=== PATIENT | female | born 1950 | race Caucasian/White ===

== ENCOUNTER 2020-03-01 10:30 | Emergency (ER) | payer MEDICARE, MEDICAID, SELFPAY ==
[2020-03-01 10:51] VITALS: BP 141/73; PULSE 91; RESP 16; TEMP 36.8; O2SAT 95; BMI 19.2
--- NOTE | 2020-03-01 11:07 | W.ED.GENADLT ---
HPI - General Adult General: Chief complaint: General Medical Stated complaint: ABNORMAL LABS Time Seen by Provider: 03/01/20 10:56 History of Present Illness: HPI narrative: Patient is a 69-year-old female presenting today with a high INR per her doctor's office. She is on Coumadin for a mechanical heart valve. She takes 6 mg alternating daily with 7 mg. She took her normal 6 mg dose last night. Yesterday she had her INR checked at her doctor's office for the first time in 2 or 3 months. It is reported as higher than 8 and she was told to come to the ER for a vitamin K shot. She has noticed blood in her urine for the last 2 to 3 weeks. She is otherwise feeling okay but is very nervous about this INR. She recently had a severe episode of the flu and said she is just gotten over that in the past week or so. Her primary care physician is Dr. Dunbar. Onset (ago): unknown Associated symptoms: Reports other (Hematuria); Deny chest pain, dyspnea, headache(s), malaise, nausea, rash or vomiting Review of Systems General: Reports: 10 or more systems reviewed and unremarkable except in HPI and below Const: Reports: fatigue; Denies: fever(s), chills or malaise Eyes: Denies: change in vision ENMT: Denies: odynophagia Card: Denies: chest pain or swelling of feet/ankles Resp: Denies: dyspnea, productive cough or non-productive cough GI: Denies: abdominal pain, nausea or vomiting : Reports: hematuria; Denies: flank pain or difficulty voiding Musc: Denies: neck pain or back pain Skin/Breast: Denies: rash Neuro: Denies: headache(s), numbness in extremities or weakness in extremities Raghav/Lymph: Reports: easy bruising; Denies: easy bleeding PFSH ED PFSH: Social History Smoking and tobacco status: current every day smoker Physical Exam Const: COMMON NORMALS: no acute distress, patient oriented x3, no limitations and alert GENERAL APPEARANCE: cooperative and comfortable HENMT: HEAD & SCALP: normal to inspection FACE & SINUS: normal facial exam Eye: GENERAL EYE: appearance normal, both eyes and all related structures Neck/C-Spine: COMMON NORMALS: supple, no meningeal signs and no JVD Chest: COMMONS NORMALS: normal inspection of the chest Resp: COMMON NORMALS: normal respiratory effort, No use of accessory muscles and clear to auscultation bilaterally AUSCULTATION: clear to auscultation bilaterally Cardio: COMMON NORMALS: no JVD, regular rate, regular rhythm and No murmurs present (Cardio) RATE: regular rate RHYTHM: regular rhythm GI: COMMON NORMALS: Normal to inspection, nondistended, normoactive bowel sounds present, Soft to palpation and non-tender INSPECTION: Yes normal to inspection AUSCULTATION: Yes normoactive bowel sounds PALPATION: Yes Soft to palpation Back/Pelvis: COMMON NORMALS: thoracic and lumbar spine normal to inspection Extremity: COMMON NORMALS: normal to inspection Neuro: COMMON NORMALS: patient oriented x3, moves all extremities, no focal motor deficits and no sensory deficits noted SENSORIUM/ORIENTATION: Yes alert MENINGEAL SIGNS: Yes no meningeal signs Psych: COMMON NORMALS: mental status grossly normal, cooperative and normal affect ACTIVITY/MOTOR BEHAVIOR: Yes fidgeting and Yes restless MOOD & AFFECT: Yes anxious Skin: COMMON NORMALS: no rashes or lesions noted and turgor normal GENERAL SKIN EXAM: no rashes or lesions noted and turgor normal Course Reevaluation(s): Reevaluation #1: The INR here is 1.47. I asked the patient whether the test in the office was done with a fingerstick and she said no it was a regular blood draw and send out. Because it is unclear what exactly her INR is I am going to repeat the test on a new blood draw. Time: 12:36 Reevaluation #2: The second INR here in the department is 1.5. I gave her a dose of Lovenox that she has mechanical valve and we do not want her to be too low. She will take 7 mg daily of her warfarin and have her INR rechecked next week. Vital Signs: Vital signs: Vital Signs Temperature 98.2 F 03/01/20 10:51 Pulse Rate 87 03/01/20 14:15 Respiratory Rate 16 03/01/20 14:15 Blood Pressure 137/81 03/01/20 14:15 Pulse Oximetry 97 03/01/20 14:15 MDM - General Adult Lab Data: Labs: Lab Results 03/01/20 03/01/20 03/01/20 Range/Units 11:25 11:25 11:25 WBC 6.3 (4.0-10.0) 10^3/ uL RBC 4.63 (4.1-5.3) 10^6/u L Hgb 12.1 (11.5-15.3) g/dL Hct 39.0 (37.0-47.0) % MCV 84.2 (81-99) fL MCH 26.1 L (28.0-34.0) pg MCHC 31.0 (30.0-36.0) g/dL RDW 19.8 H (12.1-15.1) % Plt Count 161 (130-400) 10^3/c mm MPV 10.0 (7.4-10.4) fL Neut % (Auto) 61.9 % Lymph % (Auto) 26.2 % [place] % (Auto) 8.1 % Eos % (Auto) 2.7 % Baso % (Auto) 0.8 % Neut # (Auto) 3.9 (1.8-7.7) 10^3/u L Lymph # (Auto) 1.6 (0.8-4.8) 10^3/u L [place] # (Auto) 0.5 (0.2-0.9) 10^3/u L Eos # (Auto) 0.2 (0.0-0.8) 10^3/u L Baso # (Auto) 0.1 (0.0-0.1) 10^3/u L Nucleated RBC % (a uto) 0 % Nucleated RBCs # 0.0 /100WBC PT 18.40 H (10.5-13.3) SECO NDS INR 1.47 H (0.8-1.2) Sodium 139 (136-145) mmol/L Potassium 4.1 (3.5-5.1) mmol/L Chloride 100 (98-107) mmol/L Carbon Dioxide 26 (22-29) mmol/L Anion Gap 17.1 (5-19) BUN 12 (8-23) mg/dL Creatinine 0.8 (0.5-0.9) mg/dL GFR Calculation 71.3 L (90-130) mL/min Glucose 88 (65-115) mg/dL Calculated Osmolal ity 284 L (285-295) mOsm/k g Calcium 9.9 (8.5-10.5) mg/dL Total Bilirubin 0.4 (0.15-1.2) mg/dL AST 20 (0-32) U/L ALT 12 (0-33) U/L Alkaline Phosphata se 77 (35-105) IU/L Total Protein 7.2 (6.6-8.7) g/dL Albumin 4.4 (3.5-5.2) g/dL Globulin 2.8 (1.3-4.6) g/dL 03/01/20 Range/Units 13:11 WBC (4.0-10.0) 10^3/ uL RBC (4.1-5.3) 10^6/u L Hgb (11.5-15.3) g/dL Hct (37.0-47.0) % MCV (81-99) fL MCH (28.0-34.0) pg MCHC (30.0-36.0) g/dL RDW (12.1-15.1) % Plt Count (130-400) 10^3/c mm MPV (7.4-10.4) fL Neut % (Auto) % Lymph % (Auto) % [place] % (Auto) % Eos % (Auto) % Baso % (Auto) % Neut # (Auto) (1.8-7.7) 10^3/u L Lymph # (Auto) (0.8-4.8) 10^3/u L [place] # (Auto) (0.2-0.9) 10^3/u L Eos # (Auto) (0.0-0.8) 10^3/u L Baso # (Auto) (0.0-0.1) 10^3/u L Nucleated RBC % (a uto) % Nucleated RBCs # /100WBC PT 19.00 H (10.5-13.3) SECO NDS INR 1.54 H (0.8-1.2) Sodium (136-145) mmol/L Potassium (3.5-5.1) mmol/L Chloride (98-107) mmol/L Carbon Dioxide (22-29) mmol/L Anion Gap (5-19) BUN (8-23) mg/dL Creatinine (0.5-0.9) mg/dL GFR Calculation (90-130) mL/min Glucose (65-115) mg/dL Calculated Osmolal ity (285-295) mOsm/k g Calcium (8.5-10.5) mg/dL Total Bilirubin (0.15-1.2) mg/dL AST (0-32) U/L ALT (0-33) U/L Alkaline Phosphata se (35-105) IU/L Total Protein (6.6-8.7) g/dL Albumin (3.5-5.2) g/dL Globulin (1.3-4.6) g/dL Discharge Plan Discharge Patient Disposition: Home, Self-Care Clinical Impression: Abnormal laboratory test result Condition: Stable Prescriptions: No Action furosemide 40 mg tablet 40 mg PO DAILY 90 Days Qty: 90 RF: 3 warfarin 6 mg tablet RF: 0 Discharge Orders: Discharge Order (Routine); Ordered 03/01/20 Ordered By: Mariza Garcia Referrals: Savannah Parrish, ASSISTANT TO THE [employer] [Primary Care Provider] - Discharge Diet: Usual diet Discharge Activity: Resume usual activity Patient Instructions: Warfarin (By mouth) Activity Restrictions/Additional Instructions: Take 7 mg of Warfarin daily until you see your PCP to have the INR rechecked in about a week. 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
[2020-03-01 11:52] LABS: INR 1.47 (0.8-1.2)
[2020-03-01 12:02] LABS: Alanine Aminotransferase 12 U/L (0-33); Albumin Level 4.4 g/dL (3.5-5.2); Alkaline Phosphatase 77 IU/L (35-105); Anion Gap 17.1 (5-19); Aspartate Amino Transferase 20 U/L (0-32); Blood Urea Nitrogen 12 mg/dL (8-23); Calcium 9.9 mg/dL (8.5-10.5); Carbon Dioxide 26 mmol/L (22-29); Chloride 100 mmol/L (98-107); Globulin 2.8 g/dL (1.3-4.6); Glomerular Filtration Rate 71.3 mL/min (90-130); Glucose 88 mg/dL (65-115); Osmolality Calculated 284 mOsm/kg (285-295); Potassium 4.1 mmol/L (3.5-5.1); Sodium 139 mmol/L (136-145); Total Bilirubin 0.4 mg/dL (0.15-1.2); Total Protein 7.2 g/dL (6.6-8.7)
[2020-03-01 12:17] LABS: Basophils # 0.1 10^3/uL (0.0-0.1); Basophils % 0.8 %; Eosinophils # 0.2 10^3/uL (0.0-0.8); Eosinophils % 2.7 %; Hemoglobin 12.1 g/dL (11.5-15.3); Lymphocytes # 1.6 10^3/uL (0.8-4.8); Lymphocytes % 26.2 %; Mean Corpuscular Hemoglobin 26.1 pg (28.0-34.0); Mean Corpuscular Volume 84.2 fL (81-99); Monocytes # 0.5 10^3/uL (0.2-0.9); Monocytes % 8.1 %; Neutrophils # 3.9 10^3/uL (1.8-7.7); Neutrophils % 61.9 %; Nucleated Red Blood Cells % 0 %; Platelet Count 161 10^3/cmm (130-400); Red Blood Count 4.63 10^6/uL (4.1-5.3); Red Cell Distribution Width 19.8 % (12.1-15.1); White Blood Count 6.3 10^3/uL (4.0-10.0)
[2020-03-01 13:34] LABS: INR 1.54 (0.8-1.2)
[2020-03-01 14:15] VITALS: BP 137/81; PULSE 87; RESP 16; O2SAT 97
[2020-03-01] MEDS: enoxaparin 60 mg/0.6 mL Syringe 50 MG SUBCUT (14:18)
== END 2020-03-01 14:28 | disposition home or self-care (01) ==
PROVIDERS: Emergency Provider Emergency Medicine; Family Provider Nurse Practitioner Family; PCP Nurse Practitioner Family
DX: R79.9 Abnormal finding of blood chemistry, unspecified (principal); F17.210 Nicotine dependence, cigarettes, uncomplicated; Z79.01 Long term (current) use of anticoagulants
CPT/HCPCS: 12345; 80053; 85025; 85610; 96372; 99282; 99283; J1650

== ENCOUNTER 2020-12-07 08:41 | Emergency (ER) | payer MEDICARE, MEDICAID, SELFPAY ==
[2020-12-07 08:43] VITALS: BP 139/65; PULSE 98; RESP 18; O2SAT 98; BMI 24.2
--- NOTE | 2020-12-07 09:01 | ED_ITS ---
HPI - Abdominal Pain General: Chief Complaint: Abdominal Pain Stated Complaint: ABD PAIN Time Seen by Provider: 12/07/20 08:49 History of Present Illness: HPI narrative: 70-year-old female with a history of mitral valvuloplasty with revision in the past. She comes in today complaining of epigastric pain she has had nausea and vomiting the last several weeks. Belching makes it better eating makes it worse she had several episodes of throwing up. She has a lot of regurgitation and heartburn symptoms. She has tried Tylenol and ibuprofen. She is not been taking anything for her stomach. She is on Coumadin for her prosthetic mitral valve. MD elicited complaint: abdominal pain Onset (ago): week(s) Pain Consistency: constant Location: Epigastric Severity: mild Quality: cramping Radiation: none Exacerbating factors: eating and vomiting Associated Symptoms: Reports GI cramping, nausea, poor appetite and vomiting; Denies anorexia, belching, bloating, change in bowel habits, change in stool character, chills, coffee ground emesis, constipation, diarrhea, dyspepsia, dysuria, excessive flatus, fever(s), heartburn, hematochezia, hematuria, hematemesis, fecal incontinence, loose stools, melena and syncope Review of Systems Const: Denies: fever(s) or chills ENMT: Denies: throat pain, ear or mastoid pain, nasal discharge or nasal congestion Card: Denies: syncope Resp: Denies: dyspnea, productive cough or non-productive cough GI: Reports: nausea, vomiting and GI cramping; Denies: hematemesis, coffee ground emesis, heartburn, diarrhea, constipation, bloating, belching, excessive flatus, fecal incontinence, change in bowel habits, change in stool character, hematochezia or melena : Denies: dysuria or hematuria Skin/Breast: Denies: rash or pruritus PFSH ED PFSH: Social History Smoking and tobacco status: current every day smoker Physical Exam Const: COMMON NORMALS: no acute distress GENERAL APPEARANCE: cooperative and comfortable ORIENTATION/CONSCIOUSNESS: Yes awake, Yes oriented to person, Yes oriented to place and Yes oriented to time HENMT: COMMON NORMALS: normocephalic, atraumatic and hearing grossly normal bilaterally HEAD & SCALP: normocephalic and atraumatic Neck/C-Spine: COMMON NORMALS: no JVD Resp: COMMON NORMALS: normal respiratory effort, No retractions, No use of accessory muscles and clear to auscultation bilaterally AUSCULTATION: clear to auscultation bilaterally Cardio: COMMON NORMALS: no JVD, regular rate, regular rhythm and No murmurs present (Cardio) RATE: regular rate RHYTHM: regular rhythm GI: COMMON NORMALS: Soft to palpation and No hepatosplenomegaly present AUSCULTATION: Yes normoactive bowel sounds PALPATION: Yes Soft to palpation, No Tenderness to palpation present (GI), No Guarding due to palpation present (GI) and Yes No hepatosplenomegaly present Extremity: COMMON NORMALS: normal to inspection, capillary refill normal, no clubbing, cyanosis or edema, no calf tenderness and no pedal edema Neuro: SENSORIUM/ORIENTATION: Yes oriented to person, Yes oriented to place and Yes oriented to time Skin: COMMON NORMALS: no rashes or lesions noted GENERAL SKIN EXAM: no rashes or lesions noted Course Vital Signs: Vital signs: Vital Signs Pulse Rate 96 12/07/20 11:06 Respiratory Rate 21 H 12/07/20 11:06 Blood Pressure 122/92 12/07/20 11:06 Pulse Oximetry 98 12/07/20 11:06 MDM - Abdominal Pain MDM Narrative: Medical decision making narrative: Reviewed laboratory findings with the patient. She is feeling better will go ahead and discharge her home started on pantoprazole follow-up with her primary care doctor if she has any worsening or changes symptoms return to the emergency room immediately. If she has any vomiting of blood return to the emergency room. Lab Data: Labs: Lab Results 12/07/20 12/07/20 12/07/20 Range/Units 08:50 08:50 08:50 WBC 8.2 (4.0-10.0) 10^3/ uL RBC 4.20 (4.1-5.3) 10^6/u L Hgb 12.3 (11.5-15.3) g/dL Hct 38.1 (37.0-47.0) % MCV 90.7 (81-99) fL MCH 29.3 (28.0-34.0) pg MCHC 32.3 (30.0-36.0) g/dL RDW 14.6 (12.1-15.1) % Plt Count 183 (130-400) 10^3/c mm MPV 9.9 (7.4-10.4) fL Neut % (Auto) 68.5 % Lymph % (Auto) 19.1 % [place] % (Auto) 10.0 % Eos % (Auto) 1.3 % Baso % (Auto) 0.9 % Neut # (Auto) 5.64 (1.8-7.7) 10^3/u L Lymph # (Auto) 1.6 (0.8-4.8) 10^3/u L [place] # (Auto) 0.8 (0.2-0.9) 10^3/u L Eos # (Auto) 0.1 (0.0-0.8) 10^3/u L Baso # (Auto) 0.1 (0.0-0.1) 10^3/u L Nucleated RBC % (a uto) 0 % Nucleated RBCs # 0.0 /100WBC PT 35.50 H (12.1-14.9) SECO NDS INR 3.38 H (0.8-1.2) Sodium 131 L (136-145) mmol/L Potassium 3.9 (3.5-5.1) mmol/L Chloride 93 L (98-107) mmol/L Carbon Dioxide 27 (22-29) mmol/L Anion Gap 14.9 (5-19) BUN 8 (8-23) mg/dL Creatinine 0.7 (0.5-0.9) mg/dL GFR Calculation 83.0 L (90-130) mL/min Glucose 98 (65-115) mg/dL Calculated Osmolal ity 270 L (285-295) mOsm/k g Calcium 9.3 (8.5-10.5) mg/dL Total Bilirubin 0.6 (0.15-1.2) mg/dL AST 63 H (0-32) U/L ALT 52 H (0-33) U/L Alkaline Phosphata se 212 H (35-105) IU/L Troponin T Gen 5 n g/L (0-10) ng/L Total Protein 6.6 (6.6-8.7) g/dL Albumin 3.9 (3.5-5.2) g/dL Globulin 2.7 (1.3-4.6) g/dL Lipase 24 (13-60) U/L Urine Color (Yellow) Urine Appearance (CLEAR) Urine pH (5-7) Ur Specific Gravit y (1.005-1.030) Urine Protein (Negative) Urine Glucose (UA) (Normal) Urine Ketones (Negative) Urine Blood (Negative) Urine Nitrate (Negative) Urine Bilirubin (Negative) Prot Sulfosalicyli c Acd (Negative) Urine Urobilinogen (Negative) mg/dL Ur Leukocyte Octavia ase (Negative) Urine RBC (0-2) /hpf Urine WBC (0-5) /hpf Ur Squamous Epith Cells (0-5) /hpf Amorphous Sediment Urine Bacteria (NONE) /hpf 12/07/20 12/07/20 Range/Units 08:50 09:10 WBC (4.0-10.0) 10^3/ uL RBC (4.1-5.3) 10^6/u L Hgb (11.5-15.3) g/dL Hct (37.0-47.0) % MCV (81-99) fL MCH (28.0-34.0) pg MCHC (30.0-36.0) g/dL RDW (12.1-15.1) % Plt Count (130-400) 10^3/c mm MPV (7.4-10.4) fL Neut % (Auto) % Lymph % (Auto) % [place] % (Auto) % Eos % (Auto) % Baso % (Auto) % Neut # (Auto) (1.8-7.7) 10^3/u L Lymph # (Auto) (0.8-4.8) 10^3/u L [place] # (Auto) (0.2-0.9) 10^3/u L Eos # (Auto) (0.0-0.8) 10^3/u L Baso # (Auto) (0.0-0.1) 10^3/u L Nucleated RBC % (a uto) % Nucleated RBCs # /100WBC PT (12.1-14.9) SECO NDS INR (0.8-1.2) Sodium (136-145) mmol/L Potassium (3.5-5.1) mmol/L Chloride (98-107) mmol/L Carbon Dioxide (22-29) mmol/L Anion Gap (5-19) BUN (8-23) mg/dL Creatinine (0.5-0.9) mg/dL GFR Calculation (90-130) mL/min Glucose (65-115) mg/dL Calculated Osmolal ity (285-295) mOsm/k g Calcium (8.5-10.5) mg/dL Total Bilirubin (0.15-1.2) mg/dL AST (0-32) U/L ALT (0-33) U/L Alkaline Phosphata se (35-105) IU/L Troponin T Gen 5 n g/L 15 H (0-10) ng/L Total Protein (6.6-8.7) g/dL Albumin (3.5-5.2) g/dL Globulin (1.3-4.6) g/dL Lipase (13-60) U/L Urine Color Yellow (Yellow) Urine Appearance Clear (CLEAR) Urine pH 8 H (5-7) Ur Specific Gravit y 1.010 (1.005-1.030) Urine Protein Neg (Negative) Urine Glucose (UA) Norm (Normal) Urine Ketones Negative (Negative) Urine Blood 2+ H (Negative) Urine Nitrate Negative (Negative) Urine Bilirubin Neg (Negative) Prot Sulfosalicyli c Acd Negative (Negative) Urine Urobilinogen 1 H (Negative) mg/dL Ur Leukocyte Octavia ase 2+ H (Negative) Urine RBC 0-4 H (0-2) /hpf Urine WBC 0-4 H (0-5) /hpf Ur Squamous Epith Cells 0-4 H (0-5) /hpf Amorphous Sediment Not Reportable Urine Bacteria Trace (NONE) /hpf Discharge Plan Discharge Patient Disposition: Home Clinical Impression: Chest pain due to GERD Condition: Stable Prescriptions: New pantoprazole 40 mg tablet,delayed release (DR/EC) 40 mg PO DAILY Qty: 30 RF: 0 No Action furosemide 40 mg tablet 40 mg PO DAILY 90 Days Qty: 90 RF: 3 warfarin 6 mg tablet RF: 0 Discharge Orders: Discharge ED (Routine); Ordered 12/07/20 Ordered By: Barrington Taylor Referrals: Jonathan Dunbar MD [Primary Care Provider] - Discharge Diet: As Directed Discharge Activity: Resume usual activity Patient Instructions: Diet for Ulcers and Gastritis (ED), Opioid Safety Activity Restrictions/Additional Instructions: Up with your primary care doctor within the next week return if you have further problems. 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
--- NOTE | 2020-12-07 09:03 | ECG_ITS ---
[facility] Test Date: 2020-12-07 Pat Name: Jacinda Cisneros Department: Room: Gender: Female Recruitment And Outreach Assistant: : 1950 Requested By: Barrington Angel Order Number: [id number] Karan MD: Rogelio Carrero M.D. Measurements Intervals Superior Rate: 96 P: 94 MI: 159 QRS: 34 QRSD: 93 T: 77 QT: 368 QTc: 466 Interpretive Statements SINUS RHYTHM INCOMPLETE RIGHT BUNDLE BRANCH BLOCK [90+ ms QRS DURATION, TERMINAL R IN V1/V2, 40+ ms S IN I/aVL/V4/V5/V6] No previous ECG available for comparison Electronically Signed On 12-09-2020 18:55:56 FORMING TUBE SELECTOR by Rogelio Carrero M.D. [id number] f
[2020-12-07 09:05] VITALS: PULSE 67
[2020-12-07 09:05] LABS: Basophils # 0.1 10^3/uL (0.0-0.1); Basophils % 0.9 %; Eosinophils # 0.1 10^3/uL (0.0-0.8); Eosinophils % 1.3 %; Hematocrit 38.1 % (37.0-47.0); Hemoglobin 12.3 g/dL (11.5-15.3); Lymphocytes # 1.6 10^3/uL (0.8-4.8); Lymphocytes % 19.1 %; Mean Corpuscular HGB Conc 32.3 g/dL (30.0-36.0); Mean Corpuscular Hemoglobin 29.3 pg (28.0-34.0); Mean Corpuscular Volume 90.7 fL (81-99); Mean Platelet Volume 9.9 fL (7.4-10.4); Monocytes # 0.8 10^3/uL (0.2-0.9); Neutrophils # 5.64 10^3/uL (1.8-7.7); Neutrophils % 68.5 %; Nucleated Red Blood Cells % 0 %; Platelet Count 183 10^3/cmm (130-400); Red Cell Distribution Width 14.6 % (12.1-15.1); White Blood Count 8.2 10^3/uL (4.0-10.0)
[2020-12-07 09:06] VITALS: O2SAT 98
[2020-12-07 09:15] LABS: INR 3.38 (0.8-1.2)
[2020-12-07 09:21] LABS: Alanine Aminotransferase 52 U/L (0-33); Albumin Level 3.9 g/dL (3.5-5.2); Alkaline Phosphatase 212 IU/L (35-105); Anion Gap 14.9 (5-19); Aspartate Amino Transferase 63 U/L (0-32); Blood Urea Nitrogen 8 mg/dL (8-23); Calcium 9.3 mg/dL (8.5-10.5); Carbon Dioxide 27 mmol/L (22-29); Chloride 93 mmol/L (98-107); Globulin 2.7 g/dL (1.3-4.6); Glucose 98 mg/dL (65-115); Lipase 24 U/L (13-60); Osmolality Calculated 270 mOsm/kg (285-295); Potassium 3.9 mmol/L (3.5-5.1); Sodium 131 mmol/L (136-145); Total Bilirubin 0.6 mg/dL (0.15-1.2); Total Protein 6.6 g/dL (6.6-8.7)
[2020-12-07] MEDS: sodium chloride 0.9% 1,000 ML 999 ML IV (09:23)
[2020-12-07] MEDS: lidocaine 2% viscous 15 ML, aluminum-mag hydrox-simethicon 30 ML, sucralfate oral liq 1 GM PO (09:23)
[2020-12-07 09:51] LABS: Urine Appearance Clear (CLEAR); Urine Color Yellow (Yellow); pH Urine 8 (5-7)
[2020-12-07 09:52] LABS: Add Urine Culture? Yes; Add Urine Microscopic? YES; Bacteria Urine TRACE /hpf; Bilirubin Urine Neg (Negative); Blood Urine 2+ (Negative); Glucose Urine UA Norm (Normal); Ketones Urine Negative (Negative); Leukocyte Esterase Urine 2+ (Negative); Nitrate Urine Negative (Negative); Protein Urine Neg (Negative); RBC Urine 0-4 /hpf (0-2); Squamous Epithelial Cell Urine 0-4 /hpf (0-5); Sulfosalicylic Acid Urine Negative (Negative); Urobilinogen Urine 1 mg/dL (Negative); WBC Urine 0-4 /hpf (0-5)
[2020-12-07 10:04] LABS: Troponin T (5th) Once 15 ng/L (0-10)
[2020-12-07 10:05] VITALS: BP 122/92; PULSE 96; RESP 21; O2SAT 98
[2020-12-07 11:06] VITALS: BP 122/92; PULSE 96; RESP 21; O2SAT 98
== END 2020-12-07 11:07 | disposition home or self-care (01) ==
PROVIDERS: Emergency Provider Family Medicine; PCP Family Medicine
DX: K21.9 Gastro-esophageal reflux disease without esophagitis (principal); Z79.01 Long term (current) use of anticoagulants; F17.210 Nicotine dependence, cigarettes, uncomplicated
CPT/HCPCS: 80053; 81001; 83690; 84484; 85025; 85610; 87086; 93005; 96360; 99284; J7030

== ENCOUNTER 2021-01-01 13:58 | Outpatient (CLI) | payer MEDICARE, MEDICAID, SELFPAY ==
--- NOTE | 2021-01-01 14:06 | CT_ITS ---
WS: [id number] CT ABDOMEN CONTRAST TECHNIQUE: Contrast enhanced CT of the abdomen with coronal and sagittal reformatted images. CLINICAL INFORMATION: EPIGASTRIC PAIN COMPARISON: Ultrasound 3 27,018 DLP: 663.[address] scans at [facility] use at least one of these dose optimization techniques: automat ed exposure control; mA and/or kV adjustment per patient size (includes targeted exams where dose is matched to clinical indication); or iterative reconstruction. FINDINGS: Hepatomegaly. Innumerable low-attenuation metastatic lesions throughout both hepatic lobes. Conglomer ate metastatic involvement involving the undersurface of the right hepatic lobe and caudate lobe at t he gloria hepatis. Narrowing of the hepatic veins. Mass effect on the intrahepatic IVC with narrowing which remains patent. Splenic vein is patent. Compression with near occlusion of the right portal vei n. Gallbladder is contracted. Lung bases are well aerated. Splenomegaly. Normal GE junction. Adrenal gla nds are normal. Normal renal parenchymal enhancement. No hydronephrosis. A few simple renal cysts. Ao rtic calcification. Normal caliber abdominal aorta. Ectatic lower thoracic aorta and aortogram at the diaphragmatic hiatus measuring 3.1 x 3.4 cm AP by transverse. Celiac and SMA are patent. Normal pancreatic parenchymal enhancement. Mild prominence of the common b ile duct which appears to taper distally. Common bile duct at the pancreatic head measures 7 mm. Evid ence of portal hypertension with splenic varices. Upper abdominal varices. No visualized abdominal ly mphadenopathy. Lumbar scoliosis convex left. Disc space narrowing worse at L2-L3 L3-L4 L4-L5 and L5-S1. Slight grade 1 anterolisthesis L4 on L5. CT/CT abdomen w con* [id number] IMPRESSION: 1. Hepatomegaly with diffuse metastatic disease throughout both hepatic lobes. 2. Compression with near occlusion of the right portal vein. Hepatic veins are patent. 3. Splenomegaly with splenic varices. Varices in the upper abdomen consistent with portal hypertension. 4. Mild prominence of the common bile duct measuring 7 mm which appears to tap er distally. Pancreas appears normal. 5. No hydronephrosis in either kidney. Small bilateral renal cysts. 6. Slightly ectatic distal thoracic aorta measuring 3.1 x 3.4 CM. Normal calib er abdominal aorta. Attempted notification Jonathan Dunbar MD at 01/01/2021 3:33 PM. Unable to reach Dr. Dunbar's clinic at this time
[2021-01-01] MEDS: iohexol 300 mg/mL 50 mL Btl PO (14:07)
[2021-01-01] MEDS: iodixanol 320 mg/mL 100mL Btl IV (14:54)
== END 2021-01-01 13:59 | disposition home or self-care (01) ==
LOC: RADWPI 14:03
PROVIDERS: PCP Family Medicine; Visit Provider Family Medicine
DX: R10.13 Epigastric pain (principal); C78.7 Secondary malignant neoplasm of liver and intrahepatic bile duct; R16.2 Hepatomegaly with splenomegaly, not elsewhere classified; I77.810 Thoracic aortic ectasia; Q61.02 Congenital multiple renal cysts
CPT/HCPCS: 74160; Q9967

== ENCOUNTER 2021-01-10 14:38 | Outpatient (CLI) | payer MEDICARE, MEDICAID, SELFPAY ==
[2021-01-10 16:05] LABS: INR 9.73 (0.8-1.2)
== END 2021-01-10 14:39 | disposition home or self-care (01) ==
LOC: LAB 14:47
PROVIDERS: PCP Family Medicine; Visit Provider Family Medicine
DX: R79.1 Abnormal coagulation profile (principal)
CPT/HCPCS: 36415; 85610

== ENCOUNTER 2021-01-16 12:21 | Outpatient (CLI) | payer MEDICARE, MEDICAID, SELFPAY ==
[2021-01-16 12:47] LABS: INR 1.65 (0.8-1.2)
== END 2021-01-16 12:22 | disposition home or self-care (01) ==
PROVIDERS: PCP Family Medicine
DX: C22.9 Malignant neoplasm of liver, not specified as primary or secondary (principal); Z95.2 Presence of prosthetic heart valve
CPT/HCPCS: 85610

== ENCOUNTER 2021-01-21 08:48 | Outpatient (CLI) | payer MEDICARE, MEDICAID, SELFPAY ==
[2021-01-17 14:43] VITALS: BMI 18.6
--- NOTE | 2021-01-21 09:28 | US_ITS ---
WS: [id number] ULTRASOUND-GUIDED LIVER BIOPSY HISTORY: Liver lesions Procedure, risks, and complications have been explained to the patient. Consent is obtained. Consciou s sedation protocol was followed. Prior imaging studies are reviewed. Skin is cleansed with ChloraPrep and then anesthetized with 1% buffered lidocaine. Core biopsy is per formed with an 18 gauge Achieve needle. Specimen is placed within formalin. No complications encounte red. US/US biopsy liver [id number] IMPRESSION: Uncomplicated liver biopsy. Multiple biopsies performed of abnormal areas in e liver. Pathology results pending.
[2021-01-21 09:45] VITALS: BP 146/81; PULSE 95; RESP 18; TEMP 36.7; O2SAT 99
[2021-01-21] MEDS: sodium chloride 0.9% 1,000 ML 30 ML IV (09:53)
[2021-01-21 11:00] VITALS: BP 141/83; PULSE 94; RESP 18; O2SAT 100
[2021-01-21 11:12] VITALS: BP 120/80; PULSE 93; RESP 18; O2SAT 100
[2021-01-21 11:20] VITALS: BP 163/92; PULSE 95; RESP 16; O2SAT 95
[2021-01-21] MEDS: midazolam 1 mg/mL INJ 2 mL 2 MG IVP (11:34)
[2021-01-21 11:35] VITALS: RESP 18; O2SAT 100
[2021-01-21] MEDS: fentaNYL 50 mcg/mL INJ 2mL IVP (11:35)
[2021-01-21 12:08] VITALS: BP 169/80; PULSE 96; RESP 24; O2SAT 95
--- NOTE | 2021-01-21 12:37 | PC.NURSE ---
Pt c/o pain in lower back that has became worst over last several weeks,. Called Dr Lima to update her on the patient. Site look great with no signs of bleeding or swelling. Slight elevation in BP r/t pain. Dr Lima reviewed prior scans and determined patient has some issues with back. Advised patient to follow-up with PCP about pain. Obtained telephone order for [place] 5-325 x 1 to be given after tolerating lunch. Visitor at bedside.
[2021-01-21] MEDS: HYDROcodone-acetaminophen 5-325 mg Tablet 1 TAB PO (12:44)
== END 2021-01-21 13:21 | disposition home or self-care (01) ==
LOC: CCL 08:53 → GILAB 08:55
PROVIDERS: Radiology Diagnostic Radiology; PCP Family Medicine; Visit Provider Nurse Practitioner Family
DX: K76.9 Liver disease, unspecified (principal)
CPT/HCPCS: 36415; 47000; 76942; 85610; 88307; 96360; 96361; 96374; 96375; J2250; J3010; J7030

== ENCOUNTER 2021-01-28 18:16 | Outpatient (CLI) | payer MEDICARE, MEDICAID, SELFPAY ==
[2021-01-28 19:34] LABS: INR 1.18 (0.8-1.2)
== END 2021-01-28 18:17 | disposition home or self-care (01) ==
PROVIDERS: PCP Family Medicine; Visit Provider Family Medicine
DX: Z79.01 Long term (current) use of anticoagulants (principal)
CPT/HCPCS: 85610

== ENCOUNTER 2021-02-03 12:48 | Outpatient (CLI) | payer MEDICARE, MEDICAID, SELFPAY ==
--- NOTE | 2021-02-03 16:45 | ONC CON_ITS ---
Dr. Avery New Patient Note Patient: Jacinda Cisneros Unit #: [id number]: [id number] Dicatated By: Mckay Avery M.D.Date of Visit: Feb 03, 2021 Onc MED New Patient/Consult Referring Physician: Savannah Parrish N.P. History of Present Illness: Ms. Jacinda Cisneros, is a 70-year-old female with history of progressive abdominal fullness and pain and acid reflux since September 2020, as per patient initially she was evaluated by [facility] physician and she was given treatment for acid reflux, felt little better but then continued to have abdominal fullness especially in the right upper quadrant and progressive epigastric/right upper quadrant pain, early fullness and acid reflux and eventually had PMD.CT scan of abdomen on January 01, 2021 which showed hepatomegaly with diffuse metastatic disease throughout both hepatic lobes, compression with near occlusion of right portal vein, hepatic veins are patent. Splenomegaly with splenic varices, varices in the upper abdomen consistent with portal hypertension. Mild prominence of common bile duct measuring 7 mm. Pancreas appears normal. On January 21, 2021 she underwent ultrasound-guided liver biopsy which confirmed metastatic adenocarcinoma, CK7 positive/CK20 negative, as per pathology differential includes cholangiocarcinoma, upper GI gastric and esophageal carcinoma, thyroid or endometrium. As ER/MN receptor are negative and GCDFP also negative, likelihood of COACH WIRER or breast related malignancy being primary was less likely and Napsin and TTF-1 was also negative which will make lung as primary less likely. So upper GI lesion including bile duct and pancreas are high on differential as primary., On February 01, [address] PET scan which showed left upper lobe, hypermetabolic lesion measuring 2 x 2.7 cm SUV of 7 which could be primary lung carcinoma or metastatic disease and at anterior pleura of left upper lobe, a metastatic implant is FDG positive. A 1.6 cm prevascular lymph node in the mediastinum has SUV of 7.2 indicating malignancy and there are innumerable sites of hepatic metastatic disease throughout the liver parenchyma. Many lesions are confluent with each other and have SUV up to 12.4. As per patient she had lost about 10 to 15 pounds since September due to early fullness and persistent abdominal pain and she take tramadol but without much help patient denies any history of melena or hematochezia denies any hemoptysis or hematemesis, denies any jaundice but complaining of headaches and off-and-on blurred vision and double vision but no focal weakness. Patient has longstanding history of smoking still smoke about a pack a day, denies alcohol use Patient has history of mitral valve replacement at age 33, since then she is on Coumadin. Patient has history of colonoscopy done many years ago by Dr. Mcneil, at that time she was told it was unremarkable but never had EGD done before. Past Medical History: Ms. Goins medical history consists of anxiety, bipolar disorder, chronic obstructive pulmonary disease, depression, emphysema, gastroesophageal reflux disease, history of ce fever in childhood, hypercholesterolemia, lumbar sponylarthritis, lung nodule, and restless leg syndrome. Past Surgical History: Ms. Goins surgical/procedural history consists of covid vaccine #1 in 2020, mitral valve replacement in 1992, and tubal ligation in 1974. Medications: Alendronate Sodium 1 Tablet (of 70 mg) Oral q 7 days, clonazePAM 1 Tablet (of 0.5 mg) Oral daily, Colace 1 Caplet (of 100 mg) Capsule Oral daily, Ferrous Sulfate 1 Tablet (of 325 (65 fe) mg) Oral q 48 hours, Furosemide 1 Tablet (of 20 mg) Oral daily, Gabapentin 1 Caplet (of 300 mg) Capsule Oral t.i.d., Mirtazapine 1 Tablet (of 15 mg) Oral daily, Nitrostat Tablet, sublingual Sublingual PRN, Oxybutynin Chloride ER 1 Caplet (of 10 mg) Tablet SR 24 HR Oral daily, Pantoprazole Sodium 1 Tablet (of 40 mg) Tablet, enteric coated Oral daily, Promethazine HCl 1 Tablet (of 50 mg) Oral q 12 hours PRN, Requip 1 Tablet (of 0.5 mg) Oral daily, traMADol HCl 1 Tablet (of 50 mg) Oral b.i.d. PRN, Valsartan 1 Tablet (of 320 mg) Oral daily, Venlafaxine HCl ER 2 Caplet (of 150 mg) Capsule SR 24 HR Oral daily, Ventolin HFA 2 Puff(s) (of 108 (90 base) mcg/act) Aerosol, solution Inhalation t.i.d. & at bedtime, Verapamil HCl ER 1 Capsule (of 360 mg) Capsule SR 24 HR Oral daily, Warfarin Sodium (6 mg) Tablet Oral Take as Directed Allergies: Aspirin, TEGretol, and Wasp Venom. Social History: Ms. Cisneros is . She is a daily smoker who smokes 1.0 pack/day. Family History: Ms. Cisneros has 1 family member who is : child age 1o drowning. CHILDREN--AGE 2 FROM LEUKEMIA AND AGE 10 FROM DROWNING. Review Of Symptoms: Review of Systems is not available for this patient. Vital Signs: Performed on Feb 03, 2021 13:34: 8, 9, 0.00, 0.00 sq.m, 99 %, 130 /min (HIGH), 18 /min, 129/82 mm(hg), 99.7 F (HIGH), and 112.6 lbs (HIGH). Performance Status: 2 - Ambulatory/capable of all self-care, unable to perform any work activities. Up and about more than 50% of waking hours. (ECOG) Physical Examination: ENMT - No mouth sores, no thrush, no jaundice, Respiratory - Poor air entry otherwise clear, Cardiovascular - Regular rate and rhythm of heart, Abdomen - Soft, bowel sounds present, distended with organomegaly, Ecchymosis due to Lovenox injections, Extremities - No visible edema. Lab/Imaging: Most recent lab results are not available for this patient. Impression: Metastatic adenocarcinoma to the liver per ultrasound-guided liver biopsy done on January 21, 2021 immunohistochemistry positive for CK7, CEA, CK Erickson and negative for CDX2, CK20, Napsin, TTF-1, ER/MN, GCDFP,, as per pathology and upper GI lesion including bile duct or pancreas are high on the differential as the primary. CT PET scan done on February 01, 2021 showed left upper lobe malignant nodule size 2 x 2.7 cm with SUV of 7, malignant left pleural implant with mediastinal node consistent with metastatic disease. Extensive hepatic metastatic disease. Epigastric/right upper quadrant pain probably due to extensive liver mets. Longstanding history of smoking History of mitral valve replacement at age 33, since then she is on Coumadin Plan: Discussed with patient regarding her liver biopsy report as well as CT PET scan findings, as per immunohistochemistry, patient has metastatic adenocarcinoma to the liver and upper GI/bile duct as well as pancreas are high on the differential and her CT PET scan showed left upper lobe lung mass, primary versus metastatic At this point, will consider EGD and colonoscopy, will refer her to Dr. Mcneil for the procedure. Also refer her to pulmonology for bronchoscopy to obtain biopsy of left upper lobe to confirm primary versus metastatic disease and also consider PD-L1 status and guardant 360 and also request cancer type ID. We will also obtain tumor markers like CA 19???9, CEA and CA-125. As patient is complaining of headache off and on blurred vision, will consider MRI scan of the brain to rule out brain mets. As far as right upper quadrant pain/epigastric pain is concerned most likely due to extensive liver mets, will give her prescription for extended release morphine 15 mg every 12 hours and Percocet 5/325 1 to 2 tablet 4 to 6-hour for breakthrough, patient was advised to take small meals but more often to maintain nutrition as well as hydration Patient was also advised, she has stage IV metastatic adenocarcinoma of unknown primary, her prognosis is guarded. She was also advised to quit smoking and was offered any assistance she may need She will return to clinic in 2 weeks with CBC CMP and above-mentioned work-up Signed By: Mckay Avery M.D. <<Signature on File>>
[2021-02-10 10:37] LABS: PD-L1 (Clone 22C3) by IHC BBPL See Report
== END 2021-02-03 12:49 | disposition home or self-care (01) ==
LOC: ONCMED 12:53
PROVIDERS: PCP Family Medicine; Visit Provider Internal Medicine Hematology & Oncology
DX: C25.0 Malignant neoplasm of head of pancreas (principal); C78.7 Secondary malignant neoplasm of liver and intrahepatic bile duct; Z79.899 Other long term (current) drug therapy; Z87.891 Personal history of nicotine dependence; Z95.5 Presence of coronary angioplasty implant and graft
CPT/HCPCS: 88342; 99204

== ENCOUNTER 2021-02-04 08:53 | Outpatient (CLI) | payer MEDICARE, MEDICAID, SELFPAY | END 2021-02-04 08:54 | disposition home or self-care (01) | LOC: ONCMED 08:56 | PROVIDERS: PCP Family Medicine; Visit Provider Internal Medicine Hematology & Oncology | DX: C78.7 Secondary malignant neoplasm of liver and intrahepatic bile duct (principal) | CPT/HCPCS: 36415 ==

== ENCOUNTER 2021-02-17 16:35 | Inpatient (IN) | payer MEDICARE, MEDICAID, SELFPAY ==
[2021-02-17 17:09] VITALS: BP 137/71; PULSE 94; RESP 16; TEMP 36.5; O2SAT 99; BMI 19.5
--- NOTE | 2021-02-17 17:24 | XRR_ITS ---
PROCEDURE INFORMATION: Exam: XR Chest Exam date and time: 02/17/2021 5:53 PM Age: 70 years old Clinical indication: Left-sided chest pain; Prior surgery; Surgery date: 6+ months; Additional info: Reduced breath sounds TECHNIQUE: Imaging protocol: XR of the chest. Views: 1 view. Total images: 1 COMPARISON: CT chest wo con [id number] 01/24/2019 8:53 AM FINDINGS: Lungs: COPD/chronic bronchitis. No visible active interstitial or alveolar airspace disease. Pleural spaces: No pleural effusion. No pneumothorax. Heart/Mediastinum: Cardiac structures and configuration with cardiac size upper limits of normal. Arteriosclerosis. Status post sternotomy chest. Mildly tortuous thoracic aorta which can be seen in hypertensive cardiovascular disease. Bones/joints: Unremarkable for age. XR/XR chest 1V portable [id number] IMPRESSION: Nonacute.
--- NOTE | 2021-02-17 18:56 | W.ED.GENADLT ---
HPI - General Adult General: Chief complaint: General Medical Stated complaint: raquel sent her to be admitted Time Seen by Provider: 02/17/21 18:35 Source: patient Mode of arrival: ambulatory Limitations: no limitations History of Present Illness: HPI narrative: 70-year-old female who has a history of liver cancer. She was seen by her oncologist today was sent to the ER for admission for paracentesis and to have a port placed. She is not on chemoradiation currently but she states that he is wanting to start it. She has had diffuse abdominal pain and swelling of her abdomen. She does have ascites. She denies any fevers. She has some mild shortness of breath. Denies any worsening improving factors. Associated symptoms: Deny chest pain, dyspnea, headache(s) or rash Review of Systems Const: Denies: fever(s), chills, body aches or change in appetite Eyes: Denies: blurry vision or eye discomfort ENMT: Denies: throat pain or dental pain Card: Denies: chest pain Resp: Denies: dyspnea GI: Reports: abdominal pain : Denies: dysuria Musc: Denies: neck pain or back pain Skin/Breast: Denies: rash Neuro: Denies: headache(s) Psych: Denies: depression Raghav/Lymph: Denies: easy bruising All/Imm: Denies: urticaria PFSH ED PFSH: Medical History COPD (chronic obstructive pulmonary disease) GERD (gastroesophageal reflux disease) Liver cancer Lung nodule Mitral valve disorder Osteoporosis Pulmonary embolism Surgical History H/O tubal ligation Mitral valve replaced Social History Smoking and tobacco status: current every day smoker cigarettes Packs smoked per day: 1 Years cigarettes smoked: 58 Quit status (tobacco): considering quitting Second hand smoke exposure: Yes Smoking risk assessment/counseling performed?: Yes Alcohol intake: never Desire information about alcohol rehabilitation?: No Counseling given: No Substance/Drug Use: never Desire information about substance/drug rehabilitation?: No Counseling given: No Lives independently: Yes Household members: none Marital status: Current occupational status: disabled History of recent travel: No Current gender identity: Female Physical Exam Const: COMMON NORMALS: no acute distress, patient oriented x3 and healthy appearing HENMT: COMMON NORMALS: normocephalic and atraumatic HEAD & SCALP: normocephalic and atraumatic Eye: COMMON NORMALS: Equal, round and reactive pupils present and EOMs intact bilaterally PUPIL: Yes Equal, round and reactive pupils present Neck/C-Spine: COMMON NORMALS: full ROM and supple Chest: COMMONS NORMALS: normal inspection of the chest and normal palpation of entire chest wall Resp: COMMON NORMALS: normal respiratory effort, No retractions, No use of accessory muscles and clear to auscultation bilaterally AUSCULTATION: clear to auscultation bilaterally Cardio: COMMON NORMALS: regular rate, regular rhythm and No murmurs present (Cardio) RATE: regular rate RHYTHM: regular rhythm GI: COMMON NORMALS: no masses OTHER: distended with diffuse tenderness Extremity: COMMON NORMALS: normal to inspection and full ROM Neuro: COMMON NORMALS: patient oriented x3, moves all extremities and no focal motor deficits Psych: COMMON NORMALS: mental status grossly normal, Normal thought process present and cooperative THOUGHT PROCESS: Normal thought process present Skin: COMMON NORMALS: no rashes or lesions noted and no wounds GENERAL SKIN EXAM: no rashes or lesions noted Course Vital Signs: Vital signs: Vital Signs Temperature 98.1 F 02/17/21 19:22 Pulse Rate 98 02/17/21 19:22 Respiratory Rate 18 02/17/21 19:27 Blood Pressure 133/78 02/17/21 19:22 Pulse Oximetry 96 02/17/21 19:22 MDM - General Adult MDM Narrative: Medical decision making narrative: Patient presents here with ascites. Patient was sent here by her oncologist to be admitted for paracentesis. I spoke to hospitalist will admit. Patient also needs a port placed. Patient is well-appearing here. She has no dyspnea here. She is stable while in the ER and will admit. Lab Data: Labs: Lab Results 02/17/21 02/17/21 02/17/21 Range/Units 18:48 18:54 18:54 WBC 8.2 (4.0-10.0) 10^3/ uL RBC 3.88 L (4.1-5.3) 10^6/u L Hgb 11.6 (11.5-15.3) g/dL Hct 36.4 L (37.0-47.0) % MCV 93.8 (81-99) fL MCH 29.9 (28.0-34.0) pg MCHC 31.9 (30.0-36.0) g/dL RDW 18.0 H (12.1-15.1) % Plt Count 169 (130-400) 10^3/c mm MPV 9.9 (7.4-10.4) fL Neut % (Auto) 72.5 % Lymph % (Auto) 13.5 % Ada % (Auto) 12.7 % Eos % (Auto) 0.4 % Baso % (Auto) 0.7 % Neut # (Auto) 5.97 (1.8-7.7) 10^3/u L Lymph # (Auto) 1.1 (0.8-4.8) 10^3/u L Ada # (Auto) 1.1 H (0.2-0.9) 10^3/u L Eos # (Auto) 0.0 (0.0-0.8) 10^3/u L Baso # (Auto) 0.1 (0.0-0.1) 10^3/u L Nucleated RBC % (a uto) 0 % Nucleated RBCs # 0.0 /100WBC PT (12.1-14.9) SECO NDS Sodium 134 L (136-145) mmol/L Potassium 3.5 (3.5-5.1) mmol/L Chloride 93 L (98-107) mmol/L Carbon Dioxide 27 (22-29) mmol/L Anion Gap 17.5 (5-19) BUN 11 (8-23) mg/dL Creatinine 0.5 (0.5-0.9) mg/dL GFR Calculation 122.3 (90-130) mL/min Glucose 96 (65-115) mg/dL Calculated Osmolal ity 277 L (285-295) mOsm/k g Calcium 8.1 L (8.5-10.5) mg/dL Total Bilirubin 1.1 (0.15-1.2) mg/dL AST 85 H (0-32) U/L ALT 41 H (0-33) U/L Alkaline Phosphata se 406 H (35-105) IU/L Total Protein 6.1 L (6.6-8.7) g/dL Albumin 3.1 L (3.5-5.2) g/dL Globulin 3.0 (1.3-4.6) g/dL Lipase 54 (13-60) U/L Urine Color Yellow (Yellow) Urine Appearance Clear (CLEAR) Urine pH 5 (5-7) Ur Specific Gravit y 1.010 (1.005-1.030) Urine Protein Neg (Negative) Urine Glucose (UA) Norm (Normal) Urine Ketones Negative (Negative) Urine Blood Neg (Negative) Urine Nitrate Negative (Negative) Urine Bilirubin 1+ H (Negative) Urine Urobilinogen 1 H (Negative) mg/dL Ur Leukocyte Octavia ase Negative (Negative) 02/17/21 Range/Units 19:18 WBC (4.0-10.0) 10^3/ uL RBC (4.1-5.3) 10^6/u L Hgb (11.5-15.3) g/dL Hct (37.0-47.0) % MCV (81-99) fL MCH (28.0-34.0) pg MCHC (30.0-36.0) g/dL RDW (12.1-15.1) % Plt Count (130-400) 10^3/c mm MPV (7.4-10.4) fL Neut % (Auto) % Lymph % (Auto) % Ada % (Auto) % Eos % (Auto) % Baso % (Auto) % Neut # (Auto) (1.8-7.7) 10^3/u L Lymph # (Auto) (0.8-4.8) 10^3/u L Ada # (Auto) (0.2-0.9) 10^3/u L Eos # (Auto) (0.0-0.8) 10^3/u L Baso # (Auto) (0.0-0.1) 10^3/u L Nucleated RBC % (a uto) % Nucleated RBCs # /100WBC PT 49.40 H (12.1-14.9) SECO NDS Sodium (136-145) mmol/L Potassium (3.5-5.1) mmol/L Chloride (98-107) mmol/L Carbon Dioxide (22-29) mmol/L Anion Gap (5-19) BUN (8-23) mg/dL Creatinine (0.5-0.9) mg/dL GFR Calculation (90-130) mL/min Glucose (65-115) mg/dL Calculated Osmolal ity (285-295) mOsm/k g Calcium (8.5-10.5) mg/dL Total Bilirubin (0.15-1.2) mg/dL AST (0-32) U/L ALT (0-33) U/L Alkaline Phosphata se (35-105) IU/L Total Protein (6.6-8.7) g/dL Albumin (3.5-5.2) g/dL Globulin (1.3-4.6) g/dL Lipase (13-60) U/L Urine Color (Yellow) Urine Appearance (CLEAR) Urine pH (5-7) Ur Specific Gravit y (1.005-1.030) Urine Protein (Negative) Urine Glucose (UA) (Normal) Urine Ketones (Negative) Urine Blood (Negative) Urine Nitrate (Negative) Urine Bilirubin (Negative) Urine Urobilinogen (Negative) mg/dL Ur Leukocyte Octavia ase (Negative) Discharge Plan Discharge Patient Disposition: Admitted As Inpatient Admit Provider: Gabriel Choudhary Clinical Impression: Cancer of liver Qualifiers: Liver malignancy type: unspecified liver malignancy Qualified Code(s): C22.9 - Malignant neoplasm of liver, not specified as primary or secondary Abdominal ascites Qualifiers: Ascites type: malignant Qualified Code(s): R18.0 - Malignant ascites Condition: Stable Coding Level of Care Code ED Enrollment Coordinator for [facility] Fwd Exam Comprehensive
[2021-02-17 19:14] LABS: Basophils # 0.1 10^3/uL (0.0-0.1); Basophils % 0.7 %; Eosinophils % 0.4 %; Hematocrit 36.4 % (37.0-47.0); Hemoglobin 11.6 g/dL (11.5-15.3); Lymphocytes # 1.1 10^3/uL (0.8-4.8); Lymphocytes % 13.5 %; Mean Corpuscular HGB Conc 31.9 g/dL (30.0-36.0); Mean Corpuscular Hemoglobin 29.9 pg (28.0-34.0); Mean Corpuscular Volume 93.8 fL (81-99); Mean Platelet Volume 9.9 fL (7.4-10.4); Monocytes # 1.1 10^3/uL (0.2-0.9); Monocytes % 12.7 %; Neutrophils # 5.97 10^3/uL (1.8-7.7); Neutrophils % 72.5 %; Nucleated Red Blood Cells % 0 %; Platelet Count 169 10^3/cmm (130-400); Red Blood Count 3.88 10^6/uL (4.1-5.3); White Blood Count 8.2 10^3/uL (4.0-10.0)
[2021-02-17 19:22] VITALS: BP 133/78; PULSE 98; RESP 18; TEMP 36.7; O2SAT 96
[2021-02-17 19:27] VITALS: RESP 18
[2021-02-17] MEDS: HYDROmorphone 1 mg/mL INJ 1 mL IVP (19:27)
[2021-02-17] MEDS: ondansetron 2 mg/ML SDV 2 mL 4 MG IVP (19:27)
[2021-02-17 19:29] LABS: Add Urine Microscopic? NO; Charge for UA Resulting for Rev
[2021-02-17 19:30] LABS: Alanine Aminotransferase 41 U/L (0-33); Albumin Level 3.1 g/dL (3.5-5.2); Alkaline Phosphatase 406 IU/L (35-105); Anion Gap 17.5 (5-19); Aspartate Amino Transferase 85 U/L (0-32); Blood Urea Nitrogen 11 mg/dL (8-23); Calcium 8.1 mg/dL (8.5-10.5); Carbon Dioxide 27 mmol/L (22-29); Chloride 93 mmol/L (98-107); Glomerular Filtration Rate 122.3 mL/min (90-130); Glucose 96 mg/dL (65-115); Lipase 54 U/L (13-60); Osmolality Calculated 277 mOsm/kg (285-295); Potassium 3.5 mmol/L (3.5-5.1); Sodium 134 mmol/L (136-145); Total Bilirubin 1.1 mg/dL (0.15-1.2); Total Protein 6.1 g/dL (6.6-8.7)
[2021-02-17 19:31] LABS: Urine Color Yellow (Yellow)
[2021-02-17 19:32] LABS: Bilirubin Urine 1+ (Negative); Blood Urine Neg (Negative); Glucose Urine UA Norm (Normal); Ketones Urine Negative (Negative); Leukocyte Esterase Urine Negative (Negative); Nitrate Urine Negative (Negative); Protein Urine Neg (Negative); Urine Appearance Clear (CLEAR); Urobilinogen Urine 1 mg/dL (Negative); pH Urine 5 (5-7)
--- NOTE | 2021-02-17 19:51 | PM.HP ---
Providers/Chief Complaint Primary Care Provider: Jonathan Dunbar MD Chief Complaint: Port Drainage History of Present Illness Jacinda Cisneros is a 70 year old female who follows up with Dr. 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 Avery's clinic because of progressive abdominal fullness and lower extremity edema. Patient is stating that she has been feeling a lot of pressure in her stomach, she is endorsing early satiety, abdominal cramps & has not been able to eat much in last few days, she is denying fever, vomiting or abdominal pain. Because abdominal distention she is also struggling to take deep breaths as well, no chest pain or severe shortness of breath. Dr. Avery sent her to the hospital for therapeutic paracentesis and placement of Port-A-Cath, Dr. Tran has been notified, for her supratherapeutic INR 10 mg of vitamin K administered, she will be kept n.p.o. Coumadin on hold, she takes Coumadin for mechanical mitral valve, smokes half a pack a day, requesting nicotine patch Review of Systems Const: Reports: body aches and fatigue; Denies: fever(s) Eyes: Denies: change in vision ENMT: Denies: throat pain Card: Denies: chest pain Resp: Reports: dyspnea GI: Reports: abdominal pain, nausea, early satiety, bloating and GI cramping; Denies: vomiting, diarrhea or constipation : Denies: flank pain Musc: Reports: muscle cramps Skin/Breast: Denies: rash Neuro: Denies: headache(s) Psych: Reports: anxiety Endo: Denies: polyuria Raghav/Lymph: Denies: easy bruising All/Imm: Denies: urticaria Medications/Allergies Home Medications Medication Instructions Recorded Confirmed Last Taken Type albuterol sulfate [Ventolin HFA] 1 puff INHALATION DAILY PRN 01/17/21 02/17/21 01/20/21 History alendronate [Fosamax] 70 mg PO DAILY@0900 01/17/21 02/17/21 02/17/21 History budesonide-formoterol [Symbicort] 1 puff INHALATION DAILY 01/17/21 02/17/21 02/17/21 History gabapentin 300 mg PO TID@01/17/21 02/17/21 02/17/21 History ropinirole 0.5 mg PO DAILY@2100 01/17/21 02/17/21 02/16/21 History venlafaxine 150 mg PO DAILY@89901/17/21 02/17/21 02/17/21 History verapamil 360 mg PO DAILY 01/17/21 02/17/21 02/17/21 History clonazepam 0.5 mg tablet 0.5 mg PO DAILY@89902/17/21 02/17/21 02/17/21 History ferrous sulfate 325 mg (65 mg 325 mg PO Q2D tab 02/17/21 02/17/21 02/17/21 History iron) tablet furosemide 40 mg PO DAILY@89902/17/21 02/17/21 02/17/21 History lorazepam 1 mg PO TID@02/17/21 02/17/21 02/17/21 History mirtazapine 15 mg tablet 15 mg PO DAILY 02/17/21 02/17/21 Unknown History morphine 15 mg PO BID 02/17/21 02/17/21 02/17/21 History nitroglycerin 0.4 mg sublingual 0.4 mg SUBLINGUAL Q5M PRN 02/17/21 02/17/21 Unknown History tablet oxybutynin chloride 10 mg 10 mg PO DAILY@89902/17/21 02/17/21 02/17/21 History tablet,extended release 24 hr oxycodone-acetaminophen 1 tab PO QID PRN 02/17/21 02/17/21 02/17/21 History pantoprazole 40 mg PO DAILY@89902/17/21 02/17/21 02/17/21 History potassium chloride 10 meq PO DAILY@89902/17/21 02/17/21 02/17/21 History promethazine 50 mg tablet 50 mg PO Q12H tab 02/17/21 02/17/21 Unknown History warfarin 5 mg PO DAILY@2100 02/17/21 02/17/21 02/16/21 History Allergies Allergy/AdvReac Type Severity Reaction Status Date / Time aspirin Allergy Intermediate Unknown Verified 02/17/21 09:37 carbamazepine [From Tegretol] Allergy Intermediate Unknown Verified 02/17/21 09:38 venom-wasp Allergy Intermediate Unknown Verified 02/17/21 09:38 PFSH Acute PFSH: Medical History COPD (chronic obstructive pulmonary disease) GERD (gastroesophageal reflux disease) Liver cancer Lung nodule Mitral valve disorder Osteoporosis Pulmonary embolism Surgical History (Updated 02/17/21 @ 23:00 by Gabriel Chouhdary MD) H/O mitral valve replacement Takes Coumadin H/O tubal ligation Social History Smoking and tobacco status: current every day smoker cigarettes Packs smoked per day: 1 Years cigarettes smoked: 58 Quit status (tobacco): considering quitting Second hand smoke exposure: Yes Smoking risk assessment/counseling performed?: Yes Alcohol intake: never Desire information about alcohol rehabilitation?: No Counseling given: No Substance/Drug Use: never Desire information about substance/drug rehabilitation?: No Counseling given: No Lives independently: Yes Household members: none Marital status: Current occupational status: disabled History of recent travel: No Current gender identity: Female Vitals/I&O/Wt Last Vital Signs Temp 98.1 F 02/17/21 19:22 Pulse 98 02/17/21 19:22 Resp 18 02/17/21 19:27 BP 133/78 02/17/21 19:22 Pulse Ox 96 02/17/21 19:22 Weight last 48 hrs Weight 54.885 kg Physical Exam Narrative: EXAM NARRATIVE: Middle-age female, was sitting at the bedside when I entered the room, awake alert oriented x3 GCS 15 No neurological deficits S1, S2, loud S1, no active murmur appreciated Distended abdomen with hepatosplenomegaly, ascites, no signs of rigidity or peritonitis, no signs of caput medusae No signs of hepatic encephalopathy no asterixis Bilateral breath sounds without any adventitious rhonchi or crackles No joint swelling Lower extremity 2+ pitting edema with mild hyperemia Awake alert oriented x3 appropriate mood and affect Data : 02/17/21 18:54 02/17/21 18:54 A&P Assessment and plan (1) Abdominal ascites: Status: Acute Qualifiers: Ascites type: malignant Qualified Code(s): R18.0 - Malignant ascites (2) Cancer of liver: Status: Acute Qualifiers: Liver malignancy type: unspecified liver malignancy Qualified Code(s): C22.9 - Malignant neoplasm of liver, not specified as primary or secondary (3) Pulmonary nodule: Status: Acute (4) Metastatic malignant neoplasm of unknown primary site: Status: Acute Additional A&P Information Symptomatic progressive abdominal ascites Abdominal distention is causing symptoms of shortness of breath Hepatic lesions identified likely secondary to metastatic cancer however primary cancer is still unknown, consideration being given to ovarian versus omental Will request therapeutic paracentesis in the morning with cytology For now I will keep her on Lasix spironolactone and start lactulose No active signs of hepatic encephalopathy No evidence of abdominal pain no signs of sepsis We will keep her on ceftriaxone 2 g daily as prophylactic measures Active smoker with pulmonary nodule Pulmonary/mediastinal lymphadenopathy seems metastatic in nature currently smoking half a pack a day Requesting nicotine Follows up with Dr. Avery Will need Port-A-Cath placement in the morning, Supratherapeutic INR Takes Coumadin for mechanical mitral valve Coumadin on hold, vitamin K 10 mg IV given, recheck INR in the morning, she will require Port-A-Cath placement by Dr. Tran who has been notified and consulted Restless leg syndrome continue iron and Requip N.p.o. after midnight DVT prophylaxis SCDs avoid anticoagulation in anticipation of procedure, she is supratherapeutic at this point Full code Attestations Medical Necessity Statement*: Anticipating stay in the hospital cross more than 2 midnights for management of abdominal ascites and requiring Port-A-Cath placement Time Spent in Patient Care: (>than 50% of time spent in counselling and/or direct pt care on unit). 30mins Coding Level of Care Code Acute Architectural Draftsman for [facility] Fwd Diagnoses Abdominal ascites R18.0 Ascites type: malignant Cancer of liver C22.9 Liver malignancy type: unspecified liver malignancy Pulmonary nodule R91.1 Metastatic malignant neoplasm of unknown primary site C79.9; C80.1
[2021-02-17 20:22] VITALS: BP 134/76; PULSE 96; RESP 18; TEMP 36.7; O2SAT 94
[2021-02-17 20:31] LABS: INR 5.33 (0.8-1.2)
--- NOTE | 2021-02-17 20:34 | PC.NURSE ---
Report given to Blanche on . Blanche states that the nurse who will be taking the pt is not yet here.
[2021-02-17 20:52] VITALS: BP 129/65; PULSE 101; RESP 17; TEMP 37; O2SAT 92
[2021-02-17] MEDS: phytonadione (ADULT) 10 MG in sodium chloride 0.9% 50 ML 153 MG IV (21:55)
[2021-02-17] MEDS: nicotine 14 mg Patch 1 PATCH TRANSDERMA (22:40)
[2021-02-17] MEDS: ropinirole 0.25 mg Tablet 0.5 MG PO (22:41)
[2021-02-17 23:40] LABS: Ammonia 33 umol/L (11-51)
[2021-02-18] VITALS (14 sets, daily range): BP systolic 101–141; BP diastolic 49–77; PULSE 83–101; RESP 12–20; TEMP 36.2–37.5; O2SAT 87–98
--- NOTE | 2021-02-18 | SCC_ITS ---
Procedure Done: 1. Placement of PowerPort in the right internal jugular vein 2. Fluoroscopic guidance and interpretation for placement of catheter 3. Ultrasound guidance to access the right internal jugular vein 18.1 seconds of fluoroscopic guidance, for a cumulative dose of 2.70 mGy, was provided to Dr. Tran by the radiology department. C-arm images of the chest were saved for the patient's permanent record. [facility] SYSTEM[facility]
[2021-02-18] MEDS: cefTRIAXone 2,000 MG in sodium chloride 0.9% (plus) 50 ML 100 MG IV (00:33)
[2021-02-18] MEDS: HYDROmorphone 1 mg/mL INJ 1 mL 0.4 MG IVP ×3 (01:31→20:16)
[2021-02-18 06:18] LABS: Basophils # 0.1 10^3/uL (0.0-0.1); Basophils % 0.8 %; Eosinophils # 0.2 10^3/uL (0.0-0.8); Eosinophils % 2.4 %; Hematocrit 33.1 % (37.0-47.0); Hemoglobin 10.3 g/dL (11.5-15.3); Lymphocytes # 1.1 10^3/uL (0.8-4.8); Lymphocytes % 15.1 %; Mean Corpuscular HGB Conc 31.1 g/dL (30.0-36.0); Mean Corpuscular Hemoglobin 29.3 pg (28.0-34.0); Mean Corpuscular Volume 94.3 fL (81-99); Mean Platelet Volume 10.1 fL (7.4-10.4); Monocytes # 1.1 10^3/uL (0.2-0.9); Monocytes % 14.8 %; Neutrophils % 66.3 %; Nucleated Red Blood Cells % 0 %; Platelet Count 156 10^3/cmm (130-400); Red Blood Count 3.51 10^6/uL (4.1-5.3); Red Cell Distribution Width 17.8 % (12.1-15.1); White Blood Count 7.1 10^3/uL (4.0-10.0)
[2021-02-18 06:33] LABS: INR 1.46 (0.8-1.2)
[2021-02-18 06:46] LABS: Alanine Aminotransferase 32 U/L (0-33); Albumin Level 2.8 g/dL (3.5-5.2); Alkaline Phosphatase 353 IU/L (35-105); Anion Gap 12.6 (5-19); Aspartate Amino Transferase 66 U/L (0-32); Blood Urea Nitrogen 10 mg/dL (8-23); Carbon Dioxide 28 mmol/L (22-29); Chloride 96 mmol/L (98-107); Globulin 2.6 g/dL (1.3-4.6); Glomerular Filtration Rate 158.3 mL/min (90-130); Glucose 71 mg/dL (65-115); Osmolality Calculated 274 mOsm/kg (285-295); Potassium 3.6 mmol/L (3.5-5.1); Sodium 133 mmol/L (136-145); Total Bilirubin 1.4 mg/dL (0.15-1.2); Total Protein 5.4 g/dL (6.6-8.7)
[2021-02-18] MEDS: verapamil ER 180 mg Tablet 360 MG PO (08:47)
[2021-02-18] MEDS: FUROsemide 20 mg Tablet PO (08:47)
[2021-02-18] MEDS: spironolactone 25 mg Tablet 12.5 MG PO (08:47)
[2021-02-18] MEDS: pantoprazole DR 40 mg Tablet PO (08:47)
[2021-02-18] MEDS: gabapentin 300 mg Capsule PO ×2 (08:47→20:27)
[2021-02-18] MEDS: LORazepam 1 mg Tablet PO ×2 (08:47→20:27)
[2021-02-18] MEDS: ferrous sulfate EC 325 mg Tablet PO (08:48)
[2021-02-18] MEDS: nicotine 14 mg Patch 1 PATCH TRANSDERMA (08:48)
[2021-02-18] MEDS: ondansetron 2 mg/ML SDV 2 mL 4 MG IVP (10:05)
--- NOTE | 2021-02-18 10:26 | P.CONIM_ITS ---
Providers/Reason For Consult Consulting Physican/Specialty*: General Surgery Dr. Tran Reason for Consult*: Port-A-Cath placement Attending Physician: Horacio Acosta MD Primary Care Provider: Jonathan Dunbar MD History of Present Illness History of Present Illness Jacinda Cisneros is a 70 year old female who was recently diagnosed with liver metastasis likely secondary to a peripancreatic biliary source. Patient has had mitral valve replacement and is on Coumadin. She was admitted to the hospital yesterday for abdominal distention and ultrasound did not show any significant ascites. Patient needs a Port-A-Cath to start chemotherapy. Denies any strip clavicle fractures. Review of Systems General: Reports: 10 or more systems reviewed and unremarkable except in HPI a nd below Meds/Allergies Home Medications and Allergies Home Medications Medication Instructions Recorded Confirmed Last Taken Type albuterol sulfate [Ventolin HFA] 1 puff INHALATION DAILY PRN 01/17/21 02/17/21 01/20/21 History alendronate [Fosamax] 70 mg PO DAILY@89901/17/21 02/17/21 02/17/21 History budesonide-formoterol [Symbicort] 1 puff INHALATION DAILY 01/17/21 02/17/21 02/17/21 History gabapentin 300 mg PO TID@01/17/21 02/17/21 02/17/21 History ropinirole 0.5 mg PO DAILY@2100 01/17/21 02/17/21 02/16/21 History venlafaxine 150 mg PO DAILY@89901/17/21 02/17/21 02/17/21 History verapamil 360 mg PO DAILY 01/17/21 02/17/21 02/17/21 History clonazepam 0.5 mg tablet 0.5 mg PO DAILY@89902/17/21 02/17/21 02/17/21 History ferrous sulfate 325 mg (65 mg 325 mg PO Q2D tab 02/17/21 02/17/21 02/17/21 History iron) tablet furosemide 40 mg PO DAILY@89902/17/21 02/17/21 02/17/21 History lorazepam 1 mg PO TID@02/17/21 02/17/21 02/17/21 History mirtazapine 15 mg tablet 15 mg PO DAILY 02/17/21 02/17/21 Unknown History morphine 15 mg PO BID 02/17/21 02/17/21 02/17/21 History nitroglycerin 0.4 mg sublingual 0.4 mg SUBLINGUAL Q5M PRN 02/17/21 02/17/21 Unknown History tablet oxybutynin chloride 10 mg 10 mg PO DAILY@0900 02/17/21 02/17/21 02/17/21 History tablet,extended release 24 hr oxycodone-acetaminophen 1 tab PO QID PRN 02/17/21 02/17/21 02/17/21 History pantoprazole 40 mg PO DAILY@0902/17/21 02/17/21 02/17/21 History potassium chloride 10 meq PO DAILY@0902/17/21 02/17/21 02/17/21 History promethazine 50 mg tablet 50 mg PO Q12H tab 02/17/21 02/17/21 Unknown History warfarin 5 mg PO DAILY@2100 02/17/21 02/17/21 02/16/21 History Allergies Allergy/AdvReac Type Severity Reaction Status Date / Time aspirin Allergy Intermediate Unknown Verified 02/17/21 09:37 carbamazepine [From Tegretol] Allergy Intermediate Unknown Verified 02/17/21 09:38 venom-wasp Allergy Intermediate Unknown Verified 02/17/21 09:38 Current Medications Current Medications Generic Name Dose Route Start Last Admin Trade Name Freq PRN Reason Stop Dose Admin Ferrous Sulfate 325 mg 02/18/21 09:00 02/18/21 08:48 Ferrous Sulfate Ec 325 Mg Tablet PO 325 mg Q2D ROBY Administration Furosemide 20 mg 02/18/21 08:00 02/18/21 08:47 Furosemide 20 Mg Tablet PO 20 mg DAILY@0800 ROBY Administration Gabapentin 300 mg 02/18/21 09:00 02/18/21 08:47 Gabapentin 300 Mg Capsule PO 300 mg TID@ ROBY Administration Hydromorphone HCl 0.4 mg 02/17/21 22:52 02/18/21 05:42 Hydromorphone 1 Mg/Ml Inj 1 Ml IVP 0.4 mg Q4H PRN Administration pain Ceftriaxone Sodium 2,000 mg/ 50 mls @ 100 mls/hr 02/18/21 00:00 02/18/21 01:07 Sodium Chloride IV Infused Q24H ROBY Infusion Protocol Lorazepam 1 mg 02/18/21 09:00 02/18/21 08:47 Lorazepam 1 Mg Tablet PO 1 mg TID@ ROBY Administration Nicotine 1 patch 02/17/21 22:19 02/18/21 08:48 Nicotine 14 Mg Patch TRANSDERMA 1 patch DAILY ROBY Administration Ondansetron HCl 4 mg 02/18/21 09:12 02/18/21 10:05 Ondansetron 2 Mg/Ml Sdv 2 Ml IVP 4 mg Q4H PRN Administration NAUSEA AND VOMITING Pantoprazole Sodium 40 mg 02/18/21 09:00 02/18/21 08:[address] 40 Mg Tablet PO 40 mg DAILY@0900 ROBY Administration Ropinirole HCl 0.5 mg 02/17/21 22:30 02/17/21 22:41 Ropinirole 0.25 Mg Tablet PO 0.5 mg BEDTIME ROBY Administration Spironolactone 12.5 mg 02/18/21 09:00 02/18/21 08:47 Spironolactone 25 Mg Tablet PO 12.5 mg DAILY ROBY Administration Verapamil HCl 360 mg 02/18/21 09:00 02/18/21 08:47 Verapamil Er 180 Mg Tablet PO 360 mg DAILY ROBY Administration PFSH Acute PFSH: Medical History COPD (chronic obstructive pulmonary disease) GERD (gastroesophageal reflux disease) Liver cancer Lung nodule Mitral valve disorder Osteoporosis Pulmonary embolism Surgical History H/O mitral valve replacement Takes Coumadin H/O tubal ligation Social History Smoking and tobacco status: current every day smoker cigarettes Packs smoked per day: 1 Years cigarettes smoked: 58 Quit status (tobacco): considering quitting Second hand smoke exposure: Yes Smoking risk assessment/counseling performed?: Yes Alcohol intake: never Desire information about alcohol rehabilitation?: No Counseling given: No Substance/Drug Use: never Desire information about substance/drug rehabilitation?: No Counseling given: No Lives independently: Yes Household members: none Marital status: Current occupational status: disabled History of recent travel: No Current gender identity: Female Vitals/I&O/Wt Last Vital Signs Temp 98.1 F 02/18/21 08:09 Pulse 100 02/18/21 08:09 Resp 15 02/18/21 08:09 BP 125/57 02/18/21 08:09 Pulse Ox 91 02/18/21 08:09 02/17/21 02/18/21 02/18/21 22:59 06:59 14:59 Intake Total 51 / 101 50 / 101 Balance 51 / 101 50 / 101 Weight last 48 hrs Weight 121 lb Physical Exam Narrative: EXAM NARRATIVE: HEENT: Normocephalic Eye: Sclera /conjunctiva normal Respiratory and chest: Bilateral clear breath sounds on auscultation, well- healed sternotomy scar Cardiovascular: Normal S1 and S2 heart sounds Abdomen: Soft to palpation, abdomen distended Neurological: Oriented to place person and time Skin: Intact, no lesions appreciated on gross exam A&P Assessment and plan (1) Metastasis to liver of unknown origin: 70-year-old female with liver metastasis from unknown primary who needs central venous access for chemotherapy Plan for PowerPort placement under MAC Procedure, risks, benefits and alternatives have been discussed with the patient who wishes to proceed with surgery. Status: Acute Coding Level of Care Code Acute Management Trainee Marketing for Chg Fwd Diagnoses Metastasis to liver of unknown origin C78.7; C80.1
--- NOTE | 2021-02-18 10:40 | P.ANESASSM_ITS ---
Pre-Anesthetic Assessment Pre-Anesthetic Assessment: Height/Weight: Height 1.68 m Weight 54.885 kg Temp Pulse Resp BP Pulse Ox 97.8 F 92 18 141/75 91 02/18/21 10:34 02/18/21 10:34 02/18/21 10:34 02/18/21 10:34 02/18/21 10:34 Preop Diagnosis: Liver adenocarcinoma Proposed Procedure: Operation Date: 02/18/21 09:45 Proposed Procedures p portacath and paracentesis(Not Applicable) - Yusuf Tran MD Familial anesthetic complications: none Was Beta Kari taken within 24 hours: N/A Was Clonidine taken within 24 hours: N/A Last intake: Intake Last Liquid Date 02/18/21 Last Liquid Time 00:01 Last Solid Date 02/18/21 Last Solid Time 00:01 Social: Social History: Tobacco and No alcohol Exam: Pre-Anes Outpt Exam: alert, oriented x 3, clear to auscultation bilaterally (diminished lung sounds) and regular rate & rhythm Airway: Cervical ROM: WNL MP: 3 Dentition: False Pulmonary: Pulmonary: COPD Comments: PE CV/HEM: Comments: mechanical mitral vlave on coumadin Hepatic: Comments: liver adenocarcinoma (metastatic) GI: GI: GERD Anesthetic Plan: ASA status: 4 Anesthesia: General Other: RSI for Ascites Risk of > 500 ml blood loss (7ml/kg in children): No Meds/Allergies Current Medications: Current Medications Generic Name Dose Route Start Last Admin Trade Name Freq PRN Reason Stop Dose Admin Ferrous Sulfate 325 mg 02/18/21 09:00 02/18/21 08:48 Ferrous Sulfate Ec 325 Mg Tablet PO 325 mg Q2D ROBY Administration Furosemide 20 mg 02/18/21 08:00 02/18/21 08:47 Furosemide 20 Mg Tablet PO 20 mg DAILY@0800 ROBY Administration Gabapentin 300 mg 02/18/21 09:00 02/18/21 08:47 Gabapentin 300 M g Capsule PO 300 mg TID@ ROBY Administration Hydromorphone HCl 0.4 mg 02/17/21 22:52 02/18/21 05:42 Hydromorphone 1 Mg/Ml Inj 1 Ml IVP 0.4 mg Q4H PRN Administration pain Ceftriaxone Sodium 2,000 mg/ 50 mls @ 100 mls/ hr 02/18/21 00:00 02/18/21 01:07 Sodium Chloride IV Infused Q24H ROBY Infusion Protocol Lorazepam 1 mg 02/18/21 09:00 02/18/21 08:47 Lorazepam 1 Mg T ablet PO 1 mg TID@ ROBY Administration Nicotine 1 patch 02/17/21 22:19 02/18/21 08:48 Nicotine 14 Mg P atch TRANSDERMA 1 patch DAILY ROBY Administration Ondansetron HCl 4 mg 02/18/21 09:12 02/18/21 10:05 Ondansetron 2 Mg /Ml Sdv 2 Ml IVP 4 mg Q4H PRN Administration NAUSEA AND VOMITI NG Pantoprazole Sodiu m 40 mg 02/18/21 09:00 02/18/21 08:[address] 40 Mg Tablet PO 40 mg DAILY@0900 ROBY Administration Ropinirole HCl 0.5 mg 02/17/21 22:30 02/17/21 22:41 Ropinirole 0.25 Mg Tablet PO 0.5 mg BEDTIME ROBY Administration Spironolactone 12.5 mg 02/18/21 09:00 02/18/21 08:47 Spironolactone 2 5 Mg Tablet PO 12.5 mg DAILY ROBY Administration Verapamil HCl 360 mg 02/18/21 09:00 02/18/21 08:47 Verapamil Er 180 Mg Tablet PO 360 mg DAILY ROBY Administration PFSH Anesthesia PFSH: Medical History COPD (chronic obstructive pulmonary disease) GERD (gastroesophageal reflux disease) Liver cancer Lung nodule Mitral valve disorder Osteoporosis Pulmonary embolism Surgical History H/O mitral valve replacement Takes Coumadin H/O tubal ligation Social History Smoking and tobacco status: current every day smoker cigarettes Packs smoked per day: 1 Years cigarettes smoked: 58 Quit status (tobacco): considering quitting Second hand smoke exposure: Yes Smoking risk assessment/counseling performed?: Yes Alcohol intake: never Desire information about alcohol rehabilitation?: No Counseling given: No Substance/Drug Use: never Desire information about substance/drug rehabilitation?: No Counseling given: No Lives independently: Yes Household members: none Marital status: Current occupational status: disabled History of recent travel: No Current gender identity: Female Data Anesthesia CBC & Chem 7: 02/18/21 05:38 02/18/21 05:38 Other Labs: Laboratory Results - last 48 hr 02/17/21 02/17/21 02/17/21 18:48 18:54 18:54 WBC 8.2 RBC 3.88 L Hgb 11.6 Hct 36.4 L MCV 93.8 MCH 29.9 MCHC 31.9 RDW 18.0 H Plt Count 169 MPV 9.9 Neut % (Auto) 72.5 Lymph % (Auto) 13.5 [place] % (Auto) 12.7 Eos % (Auto) 0.4 Baso % (Auto) 0.7 Neut # (Auto) 5.97 Lymph # (Auto) 1.1 [place] # (Auto) 1.1 H Eos # (Auto) 0.0 Baso # (Auto) 0.1 Nucleated RBC % (auto) 0 Nucleated RBCs # 0.0 PT INR Sodium 134 L Potassium 3.5 Chloride 93 L Carbon Dioxide 27 Anion Gap 17.5 BUN 11 Creatinine 0.5 GFR Calculation 122.3 Glucose 96 Calculated Osmolality 277 L Calcium 8.1 L Total Bilirubin 1.1 AST 85 H ALT 41 H Alkaline Phosphatase 406 H Ammonia Total Protein 6.1 L Albumin 3.1 L Globulin 3.0 Lipase 54 Urine Color Yellow Urine Appearance Clear Urine pH 5 Ur Specific [place] 1.010 Urine Protein Neg Urine Glucose (UA) Norm Urine Ketones Negative Urine Blood Neg Urine Nitrate Negative Urine Bilirubin 1+ H Urine Urobilinogen 1 H Ur Leukocyte Esterase Negative 02/17/21 02/17/21 02/18/21 19:18 23:15 05:38 WBC RBC Hgb Hct MCV MCH MCHC RDW Plt Count MPV Neut % (Auto) Lymph % (Auto) [place] % (Auto) Eos % (Auto) Baso % (Auto) Neut # (Auto) Lymph # (Auto) [place] # (Auto) Eos # (Auto) Baso # (Auto) Nucleated RBC % (auto) Nucleated RBCs # PT 49.40 H 18.10 H D INR 5.33 H* 1.46 H Sodium Potassium Chloride Carbon Dioxide Anion Gap BUN Creatinine GFR Calculation Glucose Calculated Osmolality Calcium Total Bilirubin AST ALT Alkaline Phosphatase Ammonia 33 Total Protein Albumin Globulin Lipase Urine Color Urine Appearance Urine pH Ur Specific [place] Urine Protein Urine Glucose (UA) Urine Ketones Urine Blood Urine Nitrate Urine Bilirubin Urine Urobilinogen Ur Leukocyte Esterase 02/18/21 02/18/21 05:38 05:38 WBC 7.1 RBC 3.51 L Hgb 10.3 L Hct 33.1 L MCV 94.3 MCH 29.3 MCHC 31.1 RDW 17.8 H Plt Count 156 MPV 10.1 Neut % (Auto) 66.3 Lymph % (Auto) 15.1 [place] % (Auto) 14.8 Eos % (Auto) 2.4 Baso % (Auto) 0.8 Neut # (Auto) 4.70 Lymph # (Auto) 1.1 [place] # (Auto) 1.1 H Eos # (Auto) 0.2 Baso # (Auto) 0.1 Nucleated RBC % (auto) 0 Nucleated RBCs # 0.0 PT INR Sodium 133 L Potassium 3.6 Chloride 96 L Carbon Dioxide 28 Anion Gap 12.6 BUN 10 Creatinine 0.4 L GFR Calculation 158.3 H Glucose 71 Calculated Osmolality 274 L Calcium 8.0 L Total Bilirubin 1.4 H AST 66 H ALT 32 Alkaline Phosphatase 353 H Ammonia Total Protein 5.4 L Albumin 2.8 L Globulin 2.6 Lipase Urine Color Urine Appearance Urine pH Ur Specific [place] Urine Protein Urine Glucose (UA) Urine Ketones Urine Blood Urine Nitrate Urine Bilirubin Urine Urobilinogen Ur Leukocyte Esterase Cardiac Studies: No Data to Display
--- NOTE | 2021-02-18 11:11 | SC_ITS ---
WS: [id number] C-arm fluoroscopy for Port-A-Cath placement, 02/18/2021 Clinical Data: portacath Comparison: None. Findings: A Port-A-Cath has been inserted via the right internal jugular vein. It ends in the superior vena cav a. SC/C-arm [place] for CVA [id number] Impression: Insertion of Port-A-Cath.
[2021-02-18] MEDS: lidocaine 1% INJ 20 mL SUBCUT (11:48)
[2021-02-18] MEDS: heparin, porcine 1,000 unit/mL INJ 10 mL 10000 UNIT HE (11:50)
--- NOTE | 2021-02-18 12:12 | P.PN_ITS ---
Subjective Subjective: Interval history: No acute events overnight. Complaining of abdominal distention, denies abdominal pain, nausea vomiting, cough, shortness of breath, fever. Status post Port-A-Cath placement. Vitals/I&O/Wt Last Vital Signs Temp 97.8 F 02/18/21 10:34 Pulse 92 02/18/21 10:34 Resp 18 02/18/21 10:34 BP 141/75 02/18/21 10:34 Pulse Ox 91 02/18/21 10:34 02/17/21 02/18/21 02/18/21 22:59 06:59 14:59 Intake Total 50 / 101 Balance 50 / 101 Weight last 48 hrs Weight 54.885 kg Physical Exam Const: COMMON NORMALS: patient oriented x3 HENMT: COMMON NORMALS: normocephalic and atraumatic HEAD & SCALP: normocephalic and atraumatic Chest: CHEST: Yes Symmetrical chest wall rise Resp: COMMON NORMALS: clear to auscultation bilaterally AUSCULTATION: clear to auscultation bilaterally Cardio: COMMON NORMALS: regular rate, regular rhythm, S1 normal heart sound present, S2 normal heart sound present, No gallops present (Cardio), No murmurs present (Cardio), No rub (Cardio) and Peripheral pulses 2+ throughout RATE: regular rate RHYTHM: regular rhythm HEART SOUNDS: S1 normal heart sound present and S2 normal heart sound present PERIPHERAL PULSES: Peripheral pulses 2+ throughout GI: COMMON NORMALS: Soft to palpation, non-tender, No hepatosplenomegaly present and no masses AUSCULTATION: Yes normoactive bowel sounds PALPATION: Yes Soft to palpation and Yes No hepatosplenomegaly present RECTAL EXAM: deferred OTHER: Distended Abdomen Extremity: COMMON NORMALS: no clubbing, cyanosis or edema and no pedal edema Neuro: COMMON NORMALS: patient oriented x3 Data : 02/18/21 05:38 02/18/21 05:38 A&P Assessment and plan (1) Abdominal ascites: Minimal Abdominal Ascites.Not Significant enough to be tapped. Will Discontinue Cef and Spironlactone as well as lasix. Low suspicion for SBP. Status: Resolved Qualifiers: Ascites type: malignant Qualified Code(s): R18.0 - Malignant ascites (2) Cancer of liver: Status: Resolved Qualifiers: Liver malignancy type: unspecified liver malignancy Qualified Code(s): C22.9 - Malignant neoplasm of liver, not specified as primary or secondary (3) Pulmonary nodule: Status: Resolved (4) Metastatic malignant neoplasm of unknown primary site: Status: Resolved (5) Anemia: Anemia Panel B12 Folic Acid Status: Acute Additional A&P Information Symptomatic progressive abdominal ascites Abdominal distention is causing symptoms of shortness of breath Hepatic lesions identified likely secondary to metastatic cancer however primary cancer is still unknown, consideration being given to ovarian versus omental Will request therapeutic paracentesis in the morning with cytology For now I will keep her on Lasix spironolactone and start lactulose No active signs of hepatic encephalopathy No evidence of abdominal pain no signs of sepsis We will keep her on ceftriaxone 2 g daily as prophylactic measures Active smoker with pulmonary nodule Pulmonary/mediastinal lymphadenopathy seems metastatic in nature currently smok ing half a pack a day Requesting nicotine Follows up with Dr. Avery s/p Port-A-Cath placement Supratherapeutic INR Takes Coumadin for mechanical mitral valve Coumadin on hold, vitamin K 10 mg IV given, recheck INR in the morning, she will require Port-A-Cath placement by Dr. Tran who has been notified and consulted Restless leg syndrome continue iron and Requip N.p.o. after midnight DVT prophylaxis SCDs avoid anticoagulation in anticipation of procedure, she is supratherapeutic at this point Full code Attestations Medical Necessity Statement*: Patient needs to be in hospital for the management of above-defined problems Coding Level of Care Code Acute Satellite Instruction Facilitator for Chg Fwd Exam Detailed Diagnoses Abdominal ascites R18.0 Ascites type: malignant Cancer of liver C22.9 Liver malignancy type: unspecified liver malignancy Pulmonary nodule R91.1 Metastatic malignant neoplasm of unknown primary site C79.9; C80.1 Anemia D64.9
--- NOTE | 2021-02-18 12:30 | PC.CHAP ---
Pastoral Care Encounter/Spiritual Assessment Type of Contact [] Declined transporter radiology visit [] Patient/Family/Request visit [] Outpatient visit [] Follow-up visit [] Physician referral [] Code/Alert [x] Routine visit [] Staff referral [] Actively dying [] Patient sleeping [] Family support [] [x] Out of room [] Palliative care [] [] Receiving care in room [] Pre-surgical visit [] Trauma [] Long length of stay [] ICU visit [] Other: Relational/Emotional Strength [] Patient feels connected with others/family/visitors/staff [] Distress [] Loneliness/isolation [] Abandonment Spirituality of Patient [] Person of [place] [] Attends Anglican of their [place] [] Believes in Prayer [] Reads Bible or Yazdanism materials [] There are Spiritual issues to be addressed Toy Packer Interventions [] Prayer [] Active listening [] Non-anxious presence [] Spiritual/emotional support [] Crisis/trauma care [] Spiritual counseling [] Bereavement support [] Provided bereavement packet [] Provided Bible/devotional materials [] Provided toy/stuffed animal, coloring book to patient or family member [] Provided Communion [] Anointing/[place] [] Salvation [] Completed spiritual assessment [] Other: Impact on Illness or Injury [] Angry [] Fearful [] Anxious [] Often cries [] Exhaustion [] Unable to work [] Unable to attend bahai [] Unable to walk/stand [] Unable to read [] Unable to drive [] Unable to eat/drink [] Unable to sleep [] Unable to be with family [] Patient intubated [] Other: Summary Time spent with patient
--- NOTE | 2021-02-18 12:33 | P.OP_ITS ---
Operative Report Date of procedure: February 18, 2021 Pre-op Diagnosis: Liver metastasis Post-op diagnosis: same Procedure Done: 1. Placement of PowerPort in the right internal jugular vein 2. Fluoroscopic guidance and interpretation for placement of catheter 3. Ultrasound guidance to access the right internal jugular vein Pathology: none sent Surgeon: Yusuf Tran Anesthesia: MAC Condition: stable Disposition: PACU Procedure: The patient was taken to the Operating Room and the chest and neck bilaterally were prepped and draped in a sterile manner after the antibiotic had been administered and shoulder rolls had been placed. Ultrasound of the right internal jugular vein showed good flow with no evidence of thrombus. 1% lidocaine with 0.5% Marcaine was infiltrated under the skin at the site of the planned entry into the right internal jugular vein. An introducer needle was then used to access the right internal jugular vein under ultrasound guidance and after withdrawing blood syringe was removed and a guidewire passed under fluoroscopy into the superior vena cava. The site of the planned port was then marked on the chest and a 15 blade was used to make a 3 cm skin incision this was extended into the subcutaneous tissue using electrocautery and a subcu taneous pocket over the pectoralis fascia was created 2-0 Vicryl suture was used to suture the port to the pectoral fascia in the pocket on 3 sides. The catheter, after having been flushed with hep saline, was attached to the tunneler and a tunnel created between the port site and the internal jugular vein entry site. Under fluoroscopy the dilator sheath was passed over the guidewire into the proximal superior vena cava. The inner dilator was removed and the sheath left behind and the catheter was introduced through the peel-away sheath with the tip in the superior vena cava. The peel-away sheath was removed. The proximal end of the catheter was cut to the right size and was attached to the port. Using a Mares needle the port was accessed, it withdrew blood easily and flushed easily. A final 5cc of heparin was used to flush the PowerPort. The subcutaneous tissue was approximated using interrupted 3-0 Vicryl sutures and the skin at the introducer site and the port site was closed using subcuticular running 4-0 Monocryl sutures. Surgical glue was applied and the patient was stable throughout the procedure. Fluoroscopic guidance and interpretation was performed for introduction of the guidewire in the internal jugular vein, passage of dilator and placement of catheter tip in the distal superior vena cava.
--- NOTE | 2021-02-18 14:28 | ANE.PACU2 ---
Inpatient post-anesthesia follow up: Airway intact: Yes Vital signs: Temperature 97.8 F Pulse Rate [Monito r] 94 Pulse Rate 87 Respiratory Rate 16 Blood Pressure [Le ft Arm] 137/71 Blood Pressure 123/76 Pulse Oximetry 93 Oxygen Delivery Me thod [ Nasal Cannula Current Rate & Del alen] Oxygen Delivery Me thod Nasal Cannula Oxygen Flow Rate [ Current Rate 2 & Delivery] Oxygen Flow Rate 2 Fraction of Inspir ed Oxygen Hydration adequate: Yes Nausea and vomiting: No Pain level: 1 Mental status: Baseline
--- NOTE | 2021-02-18 15:08 | PC.NURSE ---
updated patient's daughter mariela.
[2021-02-18] MEDS: polyethylene glycol 3350 Pkt 17 gm PO (17:53)
[2021-02-18] MEDS: docusate sodium 100 mg Capsule PO (20:27)
[2021-02-18] MEDS: ropinirole 0.25 mg Tablet 0.5 MG PO (20:27)
[2021-02-18] MEDS: lactulose oral liq 20 gm/30 mL UDC 30 GM PO (20:28)
--- NOTE | 2021-02-18 22:50 | US_ITS ---
WS: [id number] Ultrasound, limited abdomen. HISTORY: Evaluate ascites. All 4 quadrants are imaged. There is a small amount of ascites. Visualized liver demonstrates diffuse metastatic lesions. US/US abdomen limited [id number] IMPRESSION: Very minimal amount of ascites within all 4 quadrants. Not sufficient at this t nedra for paracentesis.
[2021-02-19 00:02] VITALS: BP 95/52; PULSE 86; RESP 17; TEMP 36.6; O2SAT 93
[2021-02-19 04:10] VITALS: BP 102/67; PULSE 78; RESP 17; TEMP 36.6; O2SAT 92
[2021-02-19] MEDS: enoxaparin 60 mg/0.6 mL Syringe 50 MG SUBCUT (05:20)
[2021-02-19 05:21] VITALS: RESP 16
[2021-02-19] MEDS: HYDROmorphone 1 mg/mL INJ 1 mL 0.4 MG IVP ×2 (05:21→10:09)
[2021-02-19 07:26] LABS: Basophils % 0.5 %; Eosinophils % 0.2 %; Hematocrit 31.8 % (37.0-47.0); Hemoglobin 9.8 g/dL (11.5-15.3); Lymphocytes # 0.9 10^3/uL (0.8-4.8); Lymphocytes % 10.9 %; Mean Corpuscular HGB Conc 30.8 g/dL (30.0-36.0); Mean Corpuscular Hemoglobin 29.7 pg (28.0-34.0); Mean Corpuscular Volume 96.4 fL (81-99); Mean Platelet Volume 10.3 fL (7.4-10.4); Monocytes % 12.5 %; Neutrophils # 6.24 10^3/uL (1.8-7.7); Neutrophils % 75.5 %; Nucleated Red Blood Cells % 0 %; Platelet Count 168 10^3/cmm (130-400); Red Cell Distribution Width 17.7 % (12.1-15.1); White Blood Count 8.3 10^3/uL (4.0-10.0)
[2021-02-19 07:53] LABS: INR 1.17 (0.8-1.2)
[2021-02-19 08:00] VITALS: BP 124/75; PULSE 95; RESP 18; TEMP 37.1; O2SAT 89
[2021-02-19 08:07] LABS: Anion Gap 11.4 (5-19); Blood Urea Nitrogen 11 mg/dL (8-23); Calcium 7.6 mg/dL (8.5-10.5); Carbon Dioxide 28 mmol/L (22-29); Chloride 98 mmol/L (98-107); Glomerular Filtration Rate 122.3 mL/min (90-130); Glucose 99 mg/dL (65-115); Osmolality Calculated 277 mOsm/kg (285-295); Potassium 3.4 mmol/L (3.5-5.1); Sodium 134 mmol/L (136-145)
[2021-02-19 08:08] LABS: Ferritin 236 ng/mL (15-150); Iron 34 ug/dL (37-145); Percent Saturation 16.1 % (20-50); Total Iron Binding Capacity 211 mcg/dl; Unsaturated Iron Binding 177 ug/dL (112-347)
[2021-02-19 08:25] LABS: Vitamin B12 > 2000 pg/mL (232-1245)
[2021-02-19 09:00] LABS: Folate Level 4.4 ng/mL (4.8-37.3)
[2021-02-19] MEDS: pantoprazole DR 40 mg Tablet PO (09:16)
[2021-02-19] MEDS: LORazepam 1 mg Tablet PO (09:16)
[2021-02-19] MEDS: FUROsemide 20 mg Tablet PO (09:16)
[2021-02-19] MEDS: gabapentin 300 mg Capsule PO (09:16)
[2021-02-19] MEDS: verapamil ER 180 mg Tablet 360 MG PO (09:16)
[2021-02-19] MEDS: polyethylene glycol 3350 Pkt 17 gm PO (09:16)
[2021-02-19 10:09] VITALS: RESP 18
--- NOTE | 2021-02-19 10:50 | PM.DCS ---
Discharge Providers Date of Admission: 02/17/21 19:44 Date of Discharge: February 19, 2021 Attending Provider at Admission: Gabriel Choudhary MD Attending Provider at Discharge: Horacio Acosta MD Primary Care Provider: Jonathan Dunbar MD Diagnoses at Discharge Discharge Diagnosis (1) Abdominal ascites: Status: Resolved Qualifiers: Ascites type: malignant Qualified Code(s): R18.0 - Malignant ascites (2) Cancer of liver: Status: Resolved Qualifiers: Liver malignancy type: unspecified liver malignancy Qualified Code(s): C22.9 - Malignant neoplasm of liver, not specified as primary or secondary (3) Pulmonary nodule: Status: Resolved (4) Metastatic malignant neoplasm of unknown primary site: Status: Resolved (5) Anemia: Status: Acute Reason for Visit Reason for Visit: [place] Hospital Course Hospital Course 70 year old female who follows up with Dr. 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 Avery's clinic because of progressive abdominal fullness and lower extremity edema.She was admitted for worsening ascites as well as for placement of port cath. Subsequent abdominal ultrasound done during the hospital stay showed minimal ascites, not significant enough to be tapped, she had no symptoms of possible SBP, initially she was started on ceftriaxone and spironolactone, along with Lasix, ceftriaxone and spironolactone was later discontinued, she was continued on her home Lasix. She also came in with supratherapeutic INR, due to warfarin use, for her mechanical mitral valve vitamin K was given for reversal as she needed a Port-A-Cath placement. Port-A-Cath was placed, no complication was noted, patient was discharged on warfarin as well as therapeutic Lovenox, she has been advised to follow-up with her primary care physician for INR monitoring subsequent discontinuation of Lovenox. She will continue to follow Dr. Avery as an outpatient.Patient responded well to the above medical management and was discharged in stable condition Physical Exam Const: COMMON NORMALS: patient oriented x3 HENMT: COMMON NORMALS: normocephalic and atraumatic HEAD & SCALP: normocephalic and atraumatic Chest: CHEST: Yes Symmetrical chest wall rise Resp: COMMON NORMALS: clear to auscultation bilaterally AUSCULTATION: clear to auscultation bilaterally Cardio: COMMON NORMALS: regular rate, regular rhythm, S1 normal heart sound present, S2 normal heart sound present, No gallops present (Cardio), No murmurs present (Cardio), No rub (Cardio) and Peripheral pulses 2+ throughout RATE: regular rate RHYTHM: regular rhythm HEART SOUNDS: S1 normal heart sound present and S2 normal heart sound present PERIPHERAL PULSES: Peripheral pulses 2+ throughout GI: COMMON NORMALS: Soft to palpation, non-tender, No hepatosplenomegaly present and no masses AUSCULTATION: Yes normoactive bowel sounds PALPATION: Yes Soft to palpation and Yes No hepatosplenomegaly present RECTAL EXAM: deferred Extremity: COMMON NORMALS: no clubbing, cyanosis or edema and no pedal edema Neuro: COMMON NORMALS: patient oriented x3 Discharge Data Data Completed and Pending: Completed Studies During Hospitalization Category Date Time Status XR chest 1V gloria ble 29045 Urgent Exams 02/17/21 17:24 Completed US abdomen limite d 62199 Routine Ultrasound 02/18/21 22:50 Completed Pending at discharge Category Date Time Status Prothrombin Time INR AM LABS Lab 02/20/21 04:00 Ordered Prothrombin Time INR AM LABS Lab 02/21/21 04:00 Ordered Cytology [PTH] Ro utine Pth 02/17/21 22:50 Ordered Labs from last 24 hours 02/19/21 02/19/21 02/19/21 06:25 06:25 06:25 WBC RBC Hgb Hct MCV MCH MCHC RDW Plt Count MPV Neut % (Auto) Lymph % (Auto) [place] % (Auto) Eos % (Auto) Baso % (Auto) Neut # (Auto) Lymph # (Auto) [place] # (Auto) Eos # (Auto) Baso # (Auto) Nucleated RBC % (a uto) Nucleated RBCs # PT INR Sodium 134 L Potassium 3.4 L Chloride 98 Carbon Dioxide 28 Anion Gap 11.4 BUN 11 Creatinine 0.5 GFR Calculation 122.3 Glucose 99 Calculated Osmolal ity 277 L Calcium 7.6 L Iron 34 L TIBC 211 % Saturation 16.1 L Unsat Iron Binding 177 Ferritin 236 H Vitamin B12 > 2000 H Folate 4.4 L 02/19/21 02/19/21 06:25 06:25 WBC 8.3 RBC 3.30 L Hgb 9.8 L Hct 31.8 L MCV 96.4 MCH 29.7 MCHC 30.8 RDW 17.7 H Plt Count 168 MPV 10.3 Neut % (Auto) 75.5 Lymph % (Auto) 10.9 [place] % (Auto) 12.5 Eos % (Auto) 0.2 Baso % (Auto) 0.5 Neut # (Auto) 6.24 Lymph # (Auto) 0.9 [place] # (Auto) 1.0 H Eos # (Auto) 0.0 Baso # (Auto) 0.0 Nucleated RBC % (a uto) 0 Nucleated RBCs # 0.0 PT 15.30 H INR 1.17 Sodium Potassium Chloride Carbon Dioxide Anion Gap BUN Creatinine GFR Calculation Glucose Calculated Osmolal ity Calcium Iron TIBC % Saturation Unsat Iron Binding Ferritin Vitamin B12 Folate Vitals: Last Vital Signs Temp 98.8 F 02/19/21 08:00 Pulse 95 02/19/21 08:00 Resp 18 02/19/21 10:09 BP 124/75 02/19/21 08:00 Pulse Ox 89 L 02/19/21 08:00 Discharge Plan Discharge Patient Disposition: Home Condition: Stable Prescriptions: New Lovenox 60 mg/0.6 mL syringe 60 mg SUBCUT BID 10 Days Qty: 0.6 RF: 0 Continued clonazepam 0.5 mg tablet 0.5 mg PO DAILY@0900 RF: 0 ferrous sulfate 325 mg (65 mg iron) tablet 325 mg PO Q2D RF: 0 mirtazapine 15 mg tablet 15 mg PO DAILY RF: 0 nitroglycerin [Nitrostat] 0.4 mg tablet, sublingual 0.4 mg sublingual Q5M PRN (Reason: Chest Pain) RF: 0 oxybutynin chloride 10 mg tablet extended release 24hr 10 mg PO DAILY@0900 RF: 0 promethazine 50 mg tablet 50 mg PO Q12H RF: 0 verapamil 360 mg capsule,ext rel. pellets 24 hr 360 mg PO DAILY RF: 0 alendronate [Fosamax] 70 mg tablet 70 mg PO DAILY@0900 RF: 0 venlafaxine 150 mg capsule,extended release 24hr 150 mg PO DAILY@0900 RF: 0 ropinirole 0.5 mg tablet 0.5 mg PO DAILY@2100 RF: 0 gabapentin 300 mg capsule 300 mg PO TID@ RF: 0 albuterol sulfate [Ventolin HFA] 90 mcg/actuation HFA aerosol inhaler 1 puff inhalation DAILY PRN (Reason: Shortness Of Breath) RF: 0 budesonide-formoterol [Symbicort] 160-4.5 mcg/actuation HFA aerosol inhaler 1 puff INHALATION DAILY RF: 0 oxycodone-acetaminophen 5-325 mg tablet 1 tab PO QID PRN (Reason: Pain) RF: 0 warfarin 5 mg tablet 5 mg PO DAILY@2100 RF: 0 morphine 15 mg tablet extended release 15 mg PO BID RF: 0 lorazepam 1 mg tablet 1 mg PO TID@ RF: 0 potassium chloride 10 mEq tablet,ER particles/crystals 10 meq PO DAILY@09 RF: 0 furosemide 40 mg tablet 40 mg PO DAILY@899 RF: 0 pantoprazole 40 mg tablet,delayed release (DR/EC) 40 mg PO DAILY@0900 RF: 0 Discharge Orders: Discharge Order (Routine); Ordered 02/19/21 Ordered By: Horacio Acosta Referrals: Jonathan Dunbar MD [Primary Care Provider] - 03/06/21 11:30 am Discharge Diet: Regular Discharge Activity: Resume usual activity Patient Instructions: Enoxaparin (Injection), Ascites (GEN), Opioid Safety, Subcutaneous Injection Activity Restrictions/Additional Instructions: Diet Advance to normal diet as tolerated, increase fluid intake as much as possible. Activity Avoid strenuous activity for 1 week but continue with daily activities including walking as tolerated. Do not lift more than 10 pounds for 1 week Return to work/school You can return to work/ school whenever you feel ready as long as you don?t have to lift more than 10 pounds at work. If you have paperwork that needs to be completed for time off from work, please contact my office Driving You can resume driving once you stop using narcotic pain medications, and transition to non-opioid pain medications like Tylenol, Motrin, Aleve, etc. Medications Pain Take opioid pain medications as prescribed and transition to non-opioid pain medications like Tylenol, Motrin, Aleve etc. over the next few days. The goal of the pain medications is to make the pain bearable and not to be pain free since you recently had surgery. Resume all home medications after surgery as per the medication reconciliation list Nausea Nausea is common after surgery, take nausea medications as needed and stay on a liquid bland diet until nausea resolves. Constipation The combination of surgery, anesthesia and pain medications can result in constipation. Take stool softeners as prescribed. If you do not have a bowel movement in 3 days, please take an [id number] laxative like MiraLAX to address the constipation. Shower It is ok to shower but avoid getting the wound wet for 48 hours after surgery. Do not soak in bathtub, swimming pool or hot tub for 2 weeks. Wound care The glue applied to the incision will peel slowly over the next two weeks. The stitches used are dissolvable and will not need to be removed. Do not apply antibiotics or other medications on the incision Problems with the wound You can develop some redness around the incision from bruising after surgery. If there is increasing pain, redness, tenderness around the incision with or without drainage, please contact my office to rule out an infection. Sometimes the skin at the incisions can separate, resulting in reopening of the wound. Cover the wound with antibiotic cream and sterile dressings and contact my office. Contact physician Call the office at [phone] during office hours or go the Emergency Room after hours for - ?Fever to 100.4 or greater ?Shaking chills ?Pain that increases over time ?Redness, warmth, or pus draining from incision sites ?Persistent nausea or inability to take in liquids Discharge Attestations Time Spent in Discharge Care*: less than 30 min Specific Discharge Activities: educating patient, educating and/or supporting family/caregiver, discussing with pcp/other providers, discussing with special education case manager/social workers/dc planners, documenting/other paperwork and evaluating patient/reviewing data Status at Discharge: Cognitive status at discharge: cognitively intact, Behavioral status at discharge: cooperative, Functional status at discharge: independent ambulation Overall status at discharge: patient is back to baseline Quality Metrics Clinical Quality Measures During this hospital stay, did patient experience: None Coding Level of Care Code Acute Chg DC note Diagnoses Abdominal ascites R18.0 Ascites type: malignant Cancer of liver C22.9 Liver malignancy type: unspecified liver malignancy Pulmonary nodule R91.1 Metastatic malignant neoplasm of unknown primary site C79.9; C80.1 Anemia D64.9
--- NOTE | 2021-02-19 10:50 | PM.DCS ---
Discharge Providers Date of Admission: 02/17/21 19:44 Date of Discharge: February 19, 2021 Attending Provider at Admission: Gabriel Choudhary MD Attending Provider at Discharge: Horacio Acosta MD Primary Care Provider: Jonathan Dunbar MD Diagnoses at Discharge Discharge Diagnosis (1) Abdominal ascites: Status: Resolved Qualifiers: Ascites type: malignant Qualified Code(s): R18.0 - Malignant ascites (2) Cancer of liver: Status: Resolved Qualifiers: Liver malignancy type: unspecified liver malignancy Qualified Code(s): C22.9 - Malignant neoplasm of liver, not specified as primary or secondary (3) Pulmonary nodule: Status: Resolved (4) Metastatic malignant neoplasm of unknown primary site: Status: Resolved (5) Anemia: Status: Acute Reason for Visit Reason for Visit: [place] Discharge Data Data Completed and Pending: Completed Studies During Hospitalization Category Date Time Status XR chest 1V gloria ble 06670 Urgent Exams 02/17/21 17:24 Completed [place] abdomen limite d 07589 Routine Ultrasound 02/18/21 22:50 Completed Pending at discharge Category Date Time Status Prothrombin Time INR AM LABS Lab 02/20/21 04:00 Ordered Prothrombin Time INR AM LABS Lab 02/21/21 04:00 Ordered Cytology [PTH] Ro utine Pth 02/17/21 22:50 Ordered Labs from last 24 hours 02/19/21 02/19/21 02/19/21 06:25 06:25 06:25 WBC RBC Hgb Hct MCV MCH MCHC RDW Plt Count MPV Neut % (Auto) Lymph % (Auto) [place] % (Auto) Eos % (Auto) Baso % (Auto) Neut # (Auto) Lymph # (Auto) [place] # (Auto) Eos # (Auto) Baso # (Auto) Nucleated RBC % (a uto) Nucleated RBCs # PT INR Sodium 134 L Potassium 3.4 L Chloride 98 Carbon Dioxide 28 Anion Gap 11.4 BUN 11 Creatinine 0.5 GFR Calculation 122.3 Glucose 99 Calculated Osmolal ity 277 L Calcium 7.6 L Iron 34 L TIBC 211 % Saturation 16.1 L Unsat Iron Binding 177 Ferritin 236 H Vitamin B12 > 2000 H Folate 4.4 L 02/19/21 02/19/21 06:25 06:25 WBC 8.3 RBC 3.30 L Hgb 9.8 L Hct 31.8 L MCV 96.4 MCH 29.7 MCHC 30.8 RDW 17.7 H Plt Count 168 MPV 10.3 Neut % (Auto) 75.5 Lymph % (Auto) 10.9 [place] % (Auto) 12.5 Eos % (Auto) 0.2 Baso % (Auto) 0.5 Neut # (Auto) 6.24 Lymph # (Auto) 0.9 [place] # (Auto) 1.0 H Eos # (Auto) 0.0 Baso # (Auto) 0.0 Nucleated RBC % (a uto) 0 Nucleated RBCs # 0.0 PT 15.30 H INR 1.17 Sodium Potassium Chloride Carbon Dioxide Anion Gap BUN Creatinine GFR Calculation Glucose Calculated Osmolal ity Calcium Iron TIBC % Saturation Unsat Iron Binding Ferritin Vitamin B12 Folate Vitals: Last Vital Signs Temp 98.8 F 02/19/21 08:00 Pulse 95 02/19/21 08:00 Resp 18 02/19/21 10:09 BP 124/75 02/19/21 08:00 Pulse Ox 89 L 02/19/21 08:00 Discharge Plan Discharge Patient Disposition: Home Condition: Stable Prescriptions: New enoxaparin [Lovenox] 60 mg/0.6 mL syringe 60 mg SUBCUT BID 10 Days Qty: 0.6 RF: 0 Continued clonazepam 0.5 mg tablet 0.5 mg PO DAILY@0900 RF: 0 ferrous sulfate 325 mg (65 mg iron) tablet 325 mg PO Q2D RF: 0 mirtazapine 15 mg tablet 15 mg PO DAILY RF: 0 nitroglycerin [Nitrostat] 0.4 mg tablet, sublingual 0.4 mg sublingual Q5M PRN (Reason: Chest Pain) RF: 0 oxybutynin chloride 10 mg tablet extended release 24hr 10 mg PO DAILY@0900 RF: 0 promethazine 50 mg tablet 50 mg PO Q12H RF: 0 verapamil 360 mg capsule,ext rel. pellets 24 hr 360 mg PO DAILY RF: 0 alendronate [Fosamax] 70 mg tablet 70 mg PO DAILY@0900 RF: 0 venlafaxine 150 mg capsule,extended release 24hr 150 mg PO DAILY@0900 RF: 0 ropinirole 0.5 mg tablet 0.5 mg PO DAILY@2100 RF: 0 gabapentin 300 mg capsule 300 mg PO TID@,, RF: 0 albuterol sulfate [Ventolin HFA] 90 mcg/actuation HFA aerosol inhaler 1 puff inhalation DAILY PRN (Reason: Shortness Of Breath) RF: 0 budesonide-formoterol [Symbicort] 160-4.5 mcg/actuation HFA aerosol inhaler 1 puff INHALATION DAILY RF: 0 oxycodone-acetaminophen 5-325 mg tablet 1 tab PO QID PRN (Reason: Pain) RF: 0 warfarin 5 mg tablet 5 mg PO DAILY@2100 RF: 0 morphine 15 mg tablet extended release 15 mg PO BID RF: 0 lorazepam 1 mg tablet 1 mg PO TID@,, RF: 0 potassium chloride 10 mEq tablet,ER particles/crystals 10 meq PO DAILY@0900 RF: 0 furosemide 40 mg tablet 40 mg PO DAILY@0900 RF: 0 pantoprazole 40 mg tablet,delayed release (DR/EC) 40 mg PO DAILY@0900 RF: 0 Discharge Orders: Discharge Order (Routine); Ordered 02/19/21 Ordered By: Horacio Acosta Referrals: Jonathan Dunbar MD [Primary Care Provider] - Discharge Diet: Regular Discharge Activity: Resume usual activity Patient Instructions: Opioid Safety Coding Level of Care Code Acute Chg [place] note Diagnoses Abdominal ascites R18.0 Ascites type: malignant Cancer of liver C22.9 Liver malignancy type: unspecified liver malignancy Pulmonary nodule R91.1 Metastatic malignant neoplasm of unknown primary site C79.9; C80.1 Anemia D64.9
--- NOTE | 2021-02-19 11:08 | P.PN_ITS ---
Subjective Subjective: Interval history: No issues overnight, denies any significant pain Vitals/I&O/Wt Last Vital Signs Temp 97.8 F 02/19/21 04:10 Pulse 78 02/19/21 04:10 Resp 16 02/19/21 05:21 BP 102/67 02/19/21 04:10 Pulse Ox 92 02/19/21 04:10 Weight last 48 hrs Weight 121 lb Physical Exam Narrative: EXAM NARRATIVE: Chest: Incision well-healed, no significant hematoma Data : 02/19/21 06:25 02/19/21 06:25 A&P Assessment and plan (1) Port-A-Cath in place: Overall doing well Should be okay to restart anticoagulation Follow-up with Dr. Avery Status: Resolved Attestations Medical Necessity Statement*: DC home today Coding Level of Care Code Acute [employer] Diagnoses Port-A-Cath in place Z95.828
--- NOTE | 2021-02-19 11:26 | PC.NURSE ---
Gave patient discharge instructions at this time, went over instructions on how to give self a sub-q injection. Patient states she has done the Lovenox injections in the past and know how to inject them. All questions answered. Patient discharged in stable condition in the care of her . IV catheter removed, tip intact. Patient tolerated well.
[2021-02-19 11:29] VITALS: BP 124/75; PULSE 95; RESP 18; TEMP 37.1; O2SAT 90
--- NOTE | 2021-02-19 18:46 | PC.RESP ---
Smoking Cessation and Pulmonary Rehab information sent to patient.
== END 2021-02-19 11:32 | disposition home or self-care (01) | DRG 424 ==
LOC: ER 19:45 → MEDSURG 20:01
PROVIDERS: Family Medicine; Surgery; Admitting Provider Internal Medicine; Emergency Provider Emergency Medicine; PCP Family Medicine; Visit Provider Internal Medicine
PROC: 0JH60WZ Insertion of Totally Implantable Vascular Access Device into Chest Subcutaneous Tissue and Fascia, Open Approach (ICD-10-PCS; principal; 2021-02-18 09:45)
DX: C78.7 Secondary malignant neoplasm of liver and intrahepatic bile duct (principal); R18.0 Malignant ascites; C77.1 Secondary and unspecified malignant neoplasm of intrathoracic lymph nodes; C80.1 Malignant (primary) neoplasm, unspecified; R91.1 Solitary pulmonary nodule; R97.1 Elevated cancer antigen 125 [CA 125]; D63.0 Anemia in neoplastic disease; J44.9 Chronic obstructive pulmonary disease, unspecified; K21.9 Gastro-esophageal reflux disease without esophagitis; M81.0 Age-related osteoporosis without current pathological fracture; F17.210 Nicotine dependence, cigarettes, uncomplicated; G25.81 Restless legs syndrome; Z79.01 Long term (current) use of anticoagulants; Z95.2 Presence of prosthetic heart valve; Z79.891 Long term (current) use of opiate analgesic; Z86.711 Personal history of pulmonary embolism
CPT/HCPCS: 36415; 71045; 76000; 76705; 77001; 80048; 80053; 81003; 82140; 82378; 82607; 82728; 82746; 83540; 83550; 83690; 85025; 85610; 86301; 86304; 96372; 96374; 96375; 99215; 99285; C1788; J0696; J1170; J1644; J1650; J2250; J2405; J2704; J3010; J3430; J3490

== ENCOUNTER 2021-03-04 06:06 | Outpatient (CLI) | payer MEDICARE, MEDICAID, SELFPAY ==
[2021-03-04 08:33] LABS: Basophils % 0.4 %; Eosinophils % 0.1 %; Hematocrit 36.3 % (37.0-47.0); Hemoglobin 11.4 g/dL (11.5-15.3); Lymphocytes # 0.4 10^3/uL (0.8-4.8); Lymphocytes % 3.8 %; Mean Corpuscular HGB Conc 31.4 g/dL (30.0-36.0); Mean Corpuscular Hemoglobin 29.8 pg (28.0-34.0); Mean Corpuscular Volume 94.8 fL (81-99); Mean Platelet Volume 10.3 fL (7.4-10.4); Monocytes # 0.2 10^3/uL (0.2-0.9); Monocytes % 1.6 %; Neutrophils # 10.29 10^3/uL (1.8-7.7); Neutrophils % 93.6 %; Nucleated Red Blood Cells % 0 %; Platelet Count 205 10^3/cmm (130-400); Red Blood Count 3.83 10^6/uL (4.1-5.3)
[2021-03-04 08:50] LABS: Alanine Aminotransferase 33 U/L (0-33); Albumin Level 2.8 g/dL (3.5-5.2); Alkaline Phosphatase 481 IU/L (35-105); Anion Gap 17.5 (5-19); Aspartate Amino Transferase 82 U/L (0-32); Blood Urea Nitrogen 12 mg/dL (8-23); Calcium 8.2 mg/dL (8.5-10.5); Carbon Dioxide 25 mmol/L (22-29); Chloride 93 mmol/L (98-107); Globulin 2.7 g/dL (1.3-4.6); Glomerular Filtration Rate 99.1 mL/min (90-130); Glucose 89 mg/dL (65-115); Osmolality Calculated 271 mOsm/kg (285-295); Potassium 4.5 mmol/L (3.5-5.1); Sodium 131 mmol/L (136-145); Total Bilirubin 2.2 mg/dL (0.15-1.2); Total Protein 5.5 g/dL (6.6-8.7)
[2021-03-04 13:10] LABS: Thyroid Stimulating Hormone 3.56 uIU/mL (0.27-4.20)
== END 2021-03-04 06:07 | disposition home or self-care (01) ==
LOC: ONCMED 06:10
PROVIDERS: PCP Family Medicine; Visit Provider Internal Medicine Hematology & Oncology
DX: Z51.12 Encounter for antineoplastic immunotherapy (principal); C25.0 Malignant neoplasm of head of pancreas; C78.7 Secondary malignant neoplasm of liver and intrahepatic bile duct; Z79.899 Other long term (current) drug therapy
CPT/HCPCS: 80053; 84443; 85025; 96413; J7050; J9271

== ENCOUNTER 2021-03-12 06:43 | Outpatient (CLI) | payer MEDICARE, MEDICAID, SELFPAY ==
[2021-03-12 10:58] LABS: Basophils % 0.3 %; Eosinophils % 0.1 %; Hematocrit 35.8 % (37.0-47.0); Hemoglobin 11.7 g/dL (11.5-15.3); Lymphocytes # 0.5 10^3/uL (0.8-4.8); Lymphocytes % 3.9 %; Mean Corpuscular HGB Conc 32.7 g/dL (30.0-36.0); Mean Corpuscular Hemoglobin 30.1 pg (28.0-34.0); Mean Platelet Volume 10.9 fL (7.4-10.4); Monocytes # 0.6 10^3/uL (0.2-0.9); Monocytes % 4.7 %; Neutrophils % 90.3 %; Nucleated Red Blood Cells % 0 %; Platelet Count 152 10^3/cmm (130-400); Red Blood Count 3.89 10^6/uL (4.1-5.3); Red Cell Distribution Width 18.7 % (12.1-15.1); White Blood Count 12.3 10^3/uL (4.0-10.0)
[2021-03-12 11:15] LABS: Alanine Aminotransferase 37 U/L (0-33); Albumin Level 2.5 g/dL (3.5-5.2); Alkaline Phosphatase 515 IU/L (35-105); Anion Gap 17.7 (5-19); Aspartate Amino Transferase 79 U/L (0-32); Blood Urea Nitrogen 19 mg/dL (8-23); Calcium 7.8 mg/dL (8.5-10.5); Carbon Dioxide 23 mmol/L (22-29); Chloride 87 mmol/L (98-107); Glomerular Filtration Rate 99.1 mL/min (90-130); Glucose 86 mg/dL (65-115); Osmolality Calculated 260 mOsm/kg (285-295); Potassium 3.7 mmol/L (3.5-5.1); Sodium 124 mmol/L (136-145); Total Bilirubin 3.2 mg/dL (0.15-1.2); Total Protein 5.5 g/dL (6.6-8.7)
== END 2021-03-12 06:44 | disposition home or self-care (01) ==
LOC: ONCMED 06:45
PROVIDERS: PCP Family Medicine; Visit Provider Internal Medicine Hematology & Oncology
DX: C22.7 Other specified carcinomas of liver (principal)
CPT/HCPCS: 36591; 80053; 85025

== ENCOUNTER 2021-03-12 12:20 | Inpatient (IN) | payer MEDICARE, MEDICAID, SELFPAY ==
[2021-03-12] VITALS (7 sets, daily range): BP systolic 113–151; BP diastolic 67–94; PULSE 82–96; RESP 14–18; TEMP 36.3–36.6; O2SAT 90–95; BMI 19.5
--- NOTE | 2021-03-12 12:36 | XR_ITS ---
WS: [id number] Portable AP upright chest, 03/12/2021 Clinical Data: reduced breath sounds Comparison: Portable chest, 02/17/2021. Findings: The right infusion catheter remains in good position. The right diaphragm is moderately tien vated and there is a poor inspiratory effort. There is atelectatic change at both lung bases. No nodu les, masses or effusions are seen. The heart is normal. The aortic arch and descending aorta show ivan cification and tortuosity. Midline sternotomy sutures are present. XR/XR chest 1V portable [id number] Impression: Atherosclerosis.
--- NOTE | 2021-03-12 12:40 | ECG_ITS ---
[facility] Test Date: 2021-03-12 Pat Name: Jacinda Cisneros Department: Room: Gender: Female Bilingual Speech Therapist: : [id number] Requested By: Pradip Adams Order Number: [id number] Russo MD: Rogelio Carrero M.D. Measurements Intervals Walsh Rate: 95 P: 85 CO: 149 QRS: 95 QRSD: 96 T: 61 QT: 382 QTc: 481 Interpretive Statements SINUS RHYTHM INDETERMINATE AXIS LOW QRS VOLTAGE IN EXTREMITY LEADS [QRS DEFLECTION < 0.5 mV IN LIMB LEADS] INCOMPLETE RIGHT BUNDLE BRANCH BLOCK [90+ ms QRS DURATION, TERMINAL R IN V1/V2, 40+ ms S IN I/aVL/V4/V5/V6] POSSIBLE ANTERIOR MYOCARDIAL INFARCTION , PROBABLY OLD [30 ms Q WAVE IN V3/V4, OR R < 0.2 mV IN V4] Compared to ECG 12/07/2020 08:52:53 Indeterminate axis now present Low QRS voltage now present Myocardial infarct finding now present Electronically Signed On 03-13-2021 18:46:24 CDT by Rogelio Carrero M.D. [email or web address]
--- NOTE | 2021-03-12 12:47 | ED_ITS ---
HPI - General Adult General: Chief complaint: General Medical Stated complaint: SOB, INCREASED SWELLING Time Seen by Provider: 03/12/21 12:31 History of Present Illness: HPI narrative: The patient is a 70-year-old female with liver cancer, chronic ascites. She comes to the ER complaining of increased swelling and abdomen, legs, and shortness of breath. She has visible ascites. Also takes Coumadin for mechanical heart valve. Onset (ago): day(s) (3) Location: abdomen Severity: moderate Pain Consistency: constant Relieving factors: none Exacerbating factors: none Associated symptoms: Reports dyspnea and weakness; Deny chest pain, cough, headache(s), nausea, rash or vomiting Review of Systems General: Reports: 10 or more systems reviewed and unremarkable except in HPI and below Const: Denies: fatigue Eyes: Denies: change in vision, blurry vision or eye redness ENMT: Denies: throat pain, swelling of lips/tongue, ear or mastoid pain or nasal congestion Card: Denies: chest pain Resp: Reports: dyspnea; Denies: productive cough, non-productive cough or wheezing GI: Reports: other (Abdominal swelling ascites); Denies: abdominal pain, nausea or vomiting : Denies: flank pain, difficulty voiding, urinary frequency or urinary urgency Musc: Denies: neck pain, back pain, extremity pain, joint pain, joint redness, limited range of motion or muscle weakness Skin/Breast: Reports: other (Peripheral edema 2+); Denies: rash, pruritus, erythema, skin pain or skin tenderness Neuro: Denies: headache(s) Psych: Denies: anxiety or depression Endo: Denies: polyuria All/Imm: Denies: urticaria, throat swelling or tongue swelling PFSH ED PFSH: Medical History (Updated 03/12/21 @ 18:25 by Pradip Adams MD) Anemia COPD (chronic obstructive pulmonary disease) GERD (gastroesophageal reflux disease) Liver cancer Lung nodule Metastasis to liver of unknown origin Mitral valve disorder Osteoporosis Pulmonary embolism Surgical History (Updated 03/12/21 @ 17:42 by Bora Parra MD) H/O mitral valve replacement Takes Coumadin H/O tubal ligation Port-A-Cath in place (02/18/21) Social History Smoking and tobacco status: current every day smoker cigarettes Packs smoked per day: 1 Years cigarettes smoked: 58 Quit status (tobacco): considering quitting Second hand smoke exposure: Yes Smoking risk assessment/counseling performed?: Yes Alcohol intake: never Desire information about alcohol rehabilitation?: No Counseling given: No Desire information about substance/drug rehabilitation?: No Counseling given: No Lives independently: Yes Household members: none Marital status: Current occupational status: disabled History of recent travel: No Current gender identity: Female Physical Exam Const: COMMON NORMALS: no acute distress, average body habitus, patient oriented x3, no limitations, alert and well nourished GENERAL APPEARANCE: cooperative, comfortable, well kempt and well developed ORIENTATION/CONSCIOUSNESS: Yes awake, Yes oriented to person, Yes oriented to place and Yes oriented to time HENMT: COMMON NORMALS: normocephalic, external ears normal and Normal external nose present HEAD & SCALP: normal to inspection and normocephalic NOSE: Normal external nose present EXTERNAL EAR: Yes external ears normal MOUTH: Normal oral and palatal mucosa present THROAT: posterior oropharynx normal Eye: COMMON NORMALS: Equal, round and reactive pupils present and EOMs intact bilaterally GENERAL EYE: appearance normal, both eyes and all related structures PUPIL: Yes Equal, round and reactive pupils present Neck/C-Spine: COMMON NORMALS: full ROM, no lymphadenopathy, no meningeal signs and no JVD GENERAL: Yes normal visual inspection Lymph: LYMPHATIC: no lymphadenopathy noted Chest: COMMONS NORMALS: normal inspection of the chest and normal palpation of entire chest wall Resp: COMMON NORMALS: normal respiratory effort, No retractions, No use of accessory muscles, clear to auscultation bilaterally and percussion normal EFFORT & INSPECTION: Yes able to speak in complete sentences AUSCULTATION: clear to auscultation bilaterally PERCUSSION: percussion normal Cardio: COMMON NORMALS: no JVD, regular rate, regular rhythm, S1 normal heart sound present, S2 normal heart sound present and Peripheral pulses 2+ throughout RATE: regular rate RHYTHM: regular rhythm HEART SOUNDS: S1 normal heart sound present and S2 normal heart sound present PERIPHERAL PULSES: Peripheral pulses 2+ throughout GI: COMMON NORMALS: Soft to palpation, non-tender and no masses INSPECTION: Yes abdominal distension PALPATION: Yes Soft to palpation and No Tenderness to palpation present (GI) OTHER: Significant abdominal ascites. Belly still mildly soft. No significant tenderness in any quadrant : COMMON NORMALS: Yes no CVA tenderness BLADDER/KIDNEY EXAM: Yes no CVA tenderness Back/Pelvis: COMMON NORMALS: no CVA tenderness, thoracic and lumbar spine normal to inspection, no thoracic nor lumbar tenderness and thoraco-lumbar ROM normal Extremity: COMMON NORMALS: normal to inspection, full ROM, capillary refill normal, no joint enlargement and no pedal edema GENERAL: Yes normal exam except as noted Neuro: COMMON NORMALS: patient oriented x3, CN's II-XII intact bilaterally, moves all extremities, no focal motor deficits, no sensory deficits noted and gait normal SENSORIUM/ORIENTATION: Yes alert, Yes oriented to person, Yes oriented to place and Yes oriented to time MENINGEAL SIGNS: Yes no meningeal signs Psych: COMMON NORMALS: mental status grossly normal, Normal thought process present, cooperative, normal affect and speech normal APPEARANCE: Yes well kempt ATTITUDE: Yes calm SPEECH: Yes normal speech THOUGHT PROCESS: Normal thought process present Skin: COMMON NORMALS: no rashes or lesions noted GENERAL SKIN EXAM: no rashes or lesions noted Course Vital Signs: Vital signs: Vital Signs Temperature 97.3 F L 03/12/21 12:25 Pulse Rate 82 03/12/21 17:57 Respiratory Rate 15 03/12/21 15:17 Blood Pressure 113/68 03/12/21 17:57 Pulse Oximetry 92 03/12/21 17:57 MDM - General Adult MDM Narrative: Medical decision making narrative: The patient's ring him to the ER with clinical anasarca, ascites, peripheral leg edema. Also complaining of shortness of breath. She was given Lasix [address] abdomen showed multiple mets to the liver likely the cause of her ascites. She had a diagnostic and therapeutic tap in the ED. Labs sent for analysis. Discussed with Dr. Hernandez who accepts for admission for further care. Lab Data: Labs: Lab Results 03/12/21 03/12/21 03/12/21 Range/Units 13:00 13:00 13:00 WBC 12.3 H (4.0-10.0) 10^3/ uL RBC 4.16 (4.1-5.3) 10^6/u L Hgb 12.4 (11.5-15.3) g/dL Hct 38.2 (37.0-47.0) % MCV 91.8 (81-99) fL MCH 29.8 (28.0-34.0) pg MCHC 32.5 (30.0-36.0) g/dL RDW 18.9 H (12.1-15.1) % Plt Count 152 (130-400) 10^3/c mm MPV 11.1 H (7.4-10.4) fL Neut % (Auto) 93.6 % Lymph % (Auto) 3.7 % Randolph % (Auto) 1.8 % Eos % (Auto) 0.0 % Baso % (Auto) 0.3 % Neut # (Auto) 11.51 H (1.8-7.7) 10^3/u L Lymph # (Auto) 0.5 L (0.8-4.8) 10^3/u L Randolph # (Auto) 0.2 (0.2-0.9) 10^3/u L Eos # (Auto) 0.0 (0.0-0.8) 10^3/u L Baso # (Auto) 0.0 (0.0-0.1) 10^3/u L Nucleated RBC % (a uto) 0 % Nucleated RBCs # 0.0 /100WBC PT 18.50 H (12.1-14.9) SECO NDS INR 1.50 H (0.8-1.2) Sodium 124 L (136-145) mmol/L Potassium 4.1 (3.5-5.1) mmol/L Chloride 86 L (98-107) mmol/L Carbon Dioxide 25 (22-29) mmol/L Anion Gap 17.1 (5-19) BUN 20 (8-23) mg/dL Creatinine 0.6 (0.5-0.9) mg/dL GFR Calculation 99.1 (90-130) mL/min Glucose 111 (65-115) mg/dL Calculated Osmolal ity 261 L (285-295) mOsm/k g Calcium 8.1 L (8.5-10.5) mg/dL Total Bilirubin 3.5 H (0.15-1.2) mg/dL AST 95 H (0-32) U/L ALT 43 H (0-33) U/L Alkaline Phosphata se 550 H (35-105) IU/L Troponin T Baselin e (0-10) ng/L NT-Pro-B Natriuret Pep 1615 H (0-125) pg/mL Total Protein 5.9 L (6.6-8.7) g/dL Albumin 2.8 L (3.5-5.2) g/dL Globulin 3.1 (1.3-4.6) g/dL Lipase 20 (13-60) U/L Urine Color (Yellow) Urine Appearance (CLEAR) Urine pH (5-7) Ur Specific Gravit y (1.005-1.030) Urine Protein (Negative) Urine Glucose (UA) (Normal) Urine Ketones (Negative) Urine Blood (Negative) Urine Nitrate (Negative) Urine Bilirubin (Negative) Urine Urobilinogen (Negative) mg/dL Ur Leukocyte Octavia ase (Negative) Urine RBC (0-2) /hpf Urine WBC (0-5) /hpf Ur Squamous Epith Cells (0-5) /hpf Amorphous Sediment Urine Bacteria (NONE) /hpf Hyaline Casts /lpf 03/12/21 03/12/21 Range/Units 13:00 13:36 WBC (4.0-10.0) 10^3/ uL RBC (4.1-5.3) 10^6/u L Hgb (11.5-15.3) g/dL Hct (37.0-47.0) % MCV (81-99) fL MCH (28.0-34.0) pg MCHC (30.0-36.0) g/dL RDW (12.1-15.1) % Plt Count (130-400) 10^3/c mm MPV (7.4-10.4) fL Neut % (Auto) % Lymph % (Auto) % Randolph % (Auto) % Eos % (Auto) % Baso % (Auto) % Neut # (Auto) (1.8-7.7) 10^3/u L Lymph # (Auto) (0.8-4.8) 10^3/u L Randolph # (Auto) (0.2-0.9) 10^3/u L Eos # (Auto) (0.0-0.8) 10^3/u L Baso # (Auto) (0.0-0.1) 10^3/u L Nucleated RBC % (a uto) % Nucleated RBCs # /100WBC PT (12.1-14.9) SECO NDS INR (0.8-1.2) Sodium (136-145) mmol/L Potassium (3.5-5.1) mmol/L Chloride (98-107) mmol/L Carbon Dioxide (22-29) mmol/L Anion Gap (5-19) BUN (8-23) mg/dL Creatinine (0.5-0.9) mg/dL GFR Calculation (90-130) mL/min Glucose (65-115) mg/dL Calculated Osmolal ity (285-295) mOsm/k g Calcium (8.5-10.5) mg/dL Total Bilirubin (0.15-1.2) mg/dL AST (0-32) U/L ALT (0-33) U/L Alkaline Phosphata se (35-105) IU/L Troponin T Baselin e 24 H (0-10) ng/L NT-Pro-B Natriuret Pep (0-125) pg/mL Total Protein (6.6-8.7) g/dL Albumin (3.5-5.2) g/dL Globulin (1.3-4.6) g/dL Lipase (13-60) U/L Urine Color Dark yellow (Yellow) Urine Appearance Clear (CLEAR) Urine pH 5 (5-7) Ur Specific Gravit y 1.015 (1.005-1.030) Urine Protein Neg (Negative) Urine Glucose (UA) Norm (Normal) Urine Ketones Negative (Negative) Urine Blood 2+ H (Negative) Urine Nitrate Negative (Negative) Urine Bilirubin 1+ H (Negative) Urine Urobilinogen 8 H (Negative) mg/dL Ur Leukocyte Octavia ase Trace H (Negative) Urine RBC 0-4 H (0-2) /hpf Urine WBC 0-4 H (0-5) /hpf Ur Squamous Epith Cells 0-4 H (0-5) /hpf Amorphous Sediment Not Reportable Urine Bacteria 1+ H (NONE) /hpf Hyaline Casts 0-4 H /lpf Discharge Plan Discharge Patient Disposition: Admitted As Inpatient Admit Provider: Bora Parra Clinical Impression: Metastasis to liver of unknown origin, Anasarca, Hyponatremia Condition: Stable Coding Level of Care Code ED Wardrobe Manager for Chg Fwd Exam Comprehensive
[2021-03-12 13:15] LABS: Basophils % 0.3 %; Hematocrit 38.2 % (37.0-47.0); Hemoglobin 12.4 g/dL (11.5-15.3); Lymphocytes # 0.5 10^3/uL (0.8-4.8); Lymphocytes % 3.7 %; Mean Corpuscular HGB Conc 32.5 g/dL (30.0-36.0); Mean Corpuscular Hemoglobin 29.8 pg (28.0-34.0); Mean Corpuscular Volume 91.8 fL (81-99); Mean Platelet Volume 11.1 fL (7.4-10.4); Monocytes # 0.2 10^3/uL (0.2-0.9); Monocytes % 1.8 %; Neutrophils # 11.51 10^3/uL (1.8-7.7); Neutrophils % 93.6 %; Nucleated Red Blood Cells % 0 %; Platelet Count 152 10^3/cmm (130-400); Red Blood Count 4.16 10^6/uL (4.1-5.3); Red Cell Distribution Width 18.9 % (12.1-15.1); White Blood Count 12.3 10^3/uL (4.0-10.0)
[2021-03-12] MEDS: FUROsemide 10 mg/mL SDV 4mL 40 MG IVP ×2 (13:17→21:54)
[2021-03-12 13:30] LABS: Troponin(5th) Baseline 24 ng/L (0-10)
[2021-03-12 13:51] LABS: Add Urine Microscopic? YES; Bilirubin Urine 1+ (Negative); Blood Urine 2+ (Negative); Glucose Urine UA Norm (Normal); Ketones Urine Negative (Negative); Leukocyte Esterase Urine Trace (Negative); Nitrate Urine Negative (Negative); Protein Urine Neg (Negative); Specific Gravity, Urine 1.015 (1.005-1.030); Urine Appearance Clear (CLEAR); Urine Color Dark Yellow (Yellow); Urobilinogen Urine 8 mg/dL (Negative); pH Urine 5 (5-7)
[2021-03-12 13:56] LABS: Add Urine Culture? No; Bacteria Urine 1+ /hpf; Hyaline Casts Urine 0-4 /lpf; RBC Urine 0-4 /hpf (0-2); Squamous Epithelial Cell Urine 0-4 /hpf (0-5); WBC Urine 0-4 /hpf (0-5)
[2021-03-12 14:17] LABS: Alanine Aminotransferase 43 U/L (0-33); Albumin Level 2.8 g/dL (3.5-5.2); Alkaline Phosphatase 550 IU/L (35-105); Blood Urea Nitrogen 20 mg/dL (8-23); Calcium 8.1 mg/dL (8.5-10.5); Carbon Dioxide 25 mmol/L (22-29); Chloride 86 mmol/L (98-107); Globulin 3.1 g/dL (1.3-4.6); Glomerular Filtration Rate 99.1 mL/min (90-130); Glucose 111 mg/dL (65-115); Lipase 20 U/L (13-60); NT Pro B Type Natriuretic Pept 1615 pg/mL (0-125); Osmolality Calculated 261 mOsm/kg (285-295); Sodium 124 mmol/L (136-145); Total Bilirubin 3.5 mg/dL (0.15-1.2); Total Protein 5.9 g/dL (6.6-8.7)
[2021-03-12 14:18] LABS: Anion Gap 17.1 (5-19); Aspartate Amino Transferase 95 U/L (0-32); Potassium 4.1 mmol/L (3.5-5.1)
--- NOTE | 2021-03-12 14:20 | CT_ITS ---
WS: [id number] CT ABDOMEN PELVIS TECHNIQUE: Contrast-enhanced CT of the abdomen and pelvis with coronal and sagittal reformatted image s. CLINICAL INFORMATION: abd swelling/ascites. h/o malignancy COMPARISON: None. DLP: 1477.[address] scans at [facility] use at least one of these dose optimization techniques: automat ed exposure control; mA and/or kV adjustment per patient size (includes targeted exams where dose is matched to clinical indication); or iterative reconstruction. FINDINGS: Hepatomegaly with innumerable metastatic lesions throughout both hepatic lobes appears slightly progr essed compared to the prior examinations. Splenomegaly with splenic varices. Varices in the upper abd omen consistent with portal venous hypertension. Diffuse abdominal and pelvic ascites has developed s jimmy January 01, 2021. Persistent compression of the intrahepatic IVC and hepatic veins similar to prev ious. Compression of the right portal vein is similar to previous. Splenic vein appears patent. Small esophageal hiatal hernia. Slight patchy atelectasis in the lung bases. No pleural fluid. No evidence of small or large bowel obstruction. Adrenal glands are normal. Normal renal parenchymal enhancement. Renal cortical atrophy. Enlarged lymph nodes in the upper abdomen and gloria hepatis [place] to previous. Degenerative disease lumbar spine. Grade 1 anterolisthesis L4 on L5. Lumbar curve co nvex left. Diffuse body wall anasarca. CT/CT abdomen pelvis w con* [id number] IMPRESSION: 1. Diffuse abdominal and pelvic ascites has developed since the prior examinat ions. 2. Innumerable metastatic lesions throughout both hepatic lobes appears slight ly progressed compared to the prior examinations. 3. Splenomegaly with portal hypertension. 4. Small esophageal hiatal hernia. 5. Upper abdominal and gloria hepatis lymphadenopathy similar to previous. 6. No other significant interval changes.
[2021-03-12] MEDS: iohexol 300 mg/mL 100 mL Btl IV (14:25)
--- NOTE | 2021-03-12 15:35 | US_ITS ---
WS: [id number] ULTRASOUND-GUIDED PARACENTESIS CLINICAL INFORMATION: diagnostic and therapeutic paracentesis. SBP? COMPARISON: None. Procedure Informed consent: The risks, benefits, and alternatives of the procedure were discussed with the lesly ent. Verbal and written consent was obtained. Timeout: A timeout was performed to confirm the correct patient, procedure, and site. Preparation: A suitable skin site was identified. The patient was prepped and draped in usual sterile fashion. Lidocaine 1% was used for local anesthesia. Catheter: 4 [place] One-step Yueh catheter. Side: Left Lower quadrant. Fluid Volume: 5000 Color: Mili DISPOSITION: 50 cc sent for requested diagnostic tests. Remainder Discarded safely. Complications: None. US/US paracentesis abd w [id number] IMPRESSION: Uncomplicated ultrasound-guided paracentesis. Removal of 5000 cc
--- NOTE | 2021-03-12 16:17 | PC.NURSE ---
time out performed at 1557 with Igor Rodríguez from radiology
[2021-03-12 17:19] LABS: Body Fluid Polynuclear #Cells 0.074; Body Fluid WBC 218 /uL; Monocytes # Body Fluid 0.144; RBC, Body Fluid 0 10^3/uL
--- NOTE | 2021-03-12 17:33 | PM.HP ---
Providers/Chief Complaint Admitting Physician: Bora Parra MD Chief Complaint: SOB, INCREASED SWELLING History of Present Illness Most of the history taken over phone by patient's . 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 As per the documentation conversation with the ER physician patient was complaining of abdominal pain on presentation along with generalized swelling for which she received [place] in the ER after which she has become drowsy. Examination patient is sleeping but daily is are arousable and maintaining her airway. Patient complaining of occasional pain in her belly. As per he is not aware of patient has been having any diarrhea though he states on the contrary patient has been having constipation. Blood work in the ER showed a white count 12.3, hemoglobin of 12.4, platelet of 152, INR of 1.5, sodium of 124, chloride of 86, total bilirubin of 3.5, AST/ALT of 95/43, alkaline phosphatase of 550, albumin of 2.8, UA negative for nitrite, trace leuk esterase. CT abdomen pelvis was done and the results are as below. Review of Systems General: Reports: ROS unobtainable due to mental status Medications/Allergies Home Medications Medication Instructions Recorded Confirmed Last Taken Type albuterol sulfate [Ventolin HFA] 1 puff INHALATION DAILY PRN 01/17/21 03/12/21 01/20/21 History alendronate [Fosamax] 70 mg PO DAILY@89901/17/21 03/12/21 03/12/21 History budesonide-formoterol [Symbicort] 1 puff INHALATION DAILY 01/17/21 03/12/21 03/12/21 History gabapentin 300 mg PO TID@01/17/21 03/12/21 03/12/21 History ropinirole 0.5 mg PO DAILY@2100 01/17/21 03/12/21 03/11/21 History venlafaxine 150 mg PO DAILY@0901/17/21 03/12/21 03/12/21 History verapamil 360 mg PO DAILY 04/07/0103/12/21 02/17/21 History ferrous sulfate 325 mg (65 mg 325 mg PO Q2D tab 02/17/21 03/12/21 02/17/21 History iron) tablet furosemide 40 mg PO DAILY@89902/17/21 03/12/21 03/12/21 History lorazepam 1 mg PO TID@,02/17/21 03/12/21 03/12/21 History mirtazapine 15 mg tablet 15 mg PO DAILY@89902/17/21 03/12/21 03/12/21 History morphine 15 mg PO BID@899,209902/17/21 03/12/21 02/17/21 History nitroglycerin 0.4 mg sublingual 0.4 mg SUBLINGUAL Q5M PRN 02/17/21 03/12/21 Unknown History tablet oxybutynin chloride 10 mg 10 mg PO DAILY@89902/17/21 03/12/21 03/12/21 History tablet,extended release 24 hr oxycodone-acetaminophen 1 tab PO QID PRN 02/17/21 03/12/21 03/12/21 History pantoprazole 40 mg PO DAILY@89902/17/21 03/12/21 03/12/21 History potassium chloride 10 meq PO DAILY@89902/17/21 03/12/21 03/12/21 History promethazine 50 mg tablet 50 mg PO Q12H tab 02/17/21 03/12/21 03/12/21 History warfarin 5 mg PO DAILY@209902/17/21 03/12/21 02/16/21 History warfarin 3 mg PO DAILY@209903/12/21 03/12/21 03/11/21 History Allergies Allergy/AdvReac Type Severity Reaction Status Date / Time aspirin Allergy Intermediate Unknown Verified 02/17/21 09:37 carbamazepine [From Tegretol] Allergy Intermediate Unknown Verified 02/17/21 09:38 venom-wasp Allergy Intermediate Unknown Verified 02/17/21 09:38 PFSH Acute PFSH: Medical History (Updated 03/12/21 @ 17:43 by Bora Parra MD) Anemia COPD (chronic obstructive pulmonary disease) GERD (gastroesophageal reflux disease) Liver cancer Lung nodule Metastasis to liver of unknown origin Mitral valve disorder Osteoporosis Pulmonary embolism Surgical History (Updated 03/12/21 @ 17:42 by Bora Parra MD) H/O mitral valve replacement Takes Coumadin H/O tubal ligation Port-A-Cath in place (02/18/21) Social History Smoking and tobacco status: current every day smoker cigarettes Packs smoked per day: 1 Years cigarettes smoked: 58 Quit status (tobacco): considering quitting Second hand smoke exposure: Yes Smoking risk assessment/counseling performed?: Yes Alcohol intake: never Desire information about alcohol rehabilitation?: No Counseling given: No Desire information about substance/drug rehabilitation?: No Counseling given: No Lives independently: Yes Household members: none Marital status: Current occupational status: disabled History of recent travel: No Current gender identity: Female Vitals/I&O/Wt Last Vital Signs Temp 97.3 F L 03/12/21 12:25 Pulse 84 03/12/21 15:17 Resp 15 03/12/21 15:17 BP 151/84 03/12/21 15:17 Pulse Ox 94 03/12/21 15:17 Weight last 48 hrs Weight 54.885 kg Physical Exam Narrative: EXAM NARRATIVE: General: Drowsy but arousable, AO x1 on exam HEENT: PERRLA, pupils bilaterally equal and reactive Chest: Normal vesicular sounds all around, decreased air entry bilaterally in the lower zones CVS: S1-S2 regular, no murmurs, no tachycardia, no gallops, no rubs Abdomen: Soft, mild tenderness on generalized examination, bowel sounds sluggish, distended, difficult to comment on organomegaly Neuro: No focal deficits, no facial deformity, Data : 03/12/21 13:00 03/12/21 13:00 A&P Assessment and plan (1) Altered mental status: Status: Acute (2) Abdominal pain: Status: Acute (3) Anasarca: Status: Acute (4) Hyponatremia: Status: Acute (5) Subtherapeutic international normalized ratio (INR): Status: Acute (6) H/O mitral valve replacement: Status: Acute (7) Metastasis to liver of unknown origin: Status: Acute Additional A&P Information 70year-old female past medical history of metastasis to the liver, mitral valve replacement on outpatient transition from Lovenox to warfarin presented to to the ER today because of worsening anasarca and found to be in altered mental status. Altered mental status: Most likely secondary to pain medication received in the ER but cannot rule out acute metabolic encephalopathy. Paracentesis diagnostic and therapeutic to rule out SBP. Check blood culture, MRSA swab, procalcitonin, ammonia levels, drug screen, culture from the paracentric fluid. For now start patient on Zosyn. Will de-escalate antibiotics if paracentric fluid negative for SBP. For now patient does not have any other source of infection. Patient is doing well on room air, UA negative for any signs of infection. For now hold off on sedating medications including mirtazapine, venlafaxine, lorazepam. Decrease dose of gabapentin 200 3 times daily. Will uptitrate or start medications as patient is more awake. Anasarca: Most likely from hypoproteinemia from liver metastasis. Check proBNP. IV Lasix 40 twice daily start patient on spironolactone 25 daily. We will monitor for hypotension. History of mitral valve replacement: No signs of CHF at present. Patient has subtherapeutic INR and I am not sure the patient is taking medications properly at home. Echocardiogram to rule out mitral valve stenosis. Subtherapeutic INR: Lovenox 1 mg/kg body weight subcu every 12 as per the creatinine clearance. Warfarin 6 mg daily. Daily INR check. We will stop Lovenox once INR at goal. Goal INR around 2.5-3. Metastasis to liver: Patient is to follow-up with Dr. Avery as an outpatient tomorrow. If patient does not have SBP will confirm with Dr. Avery regarding further plans for treatment. Port-A-Cath in place. CODE STATUS: As per who is patient's DPOA for now patient would want to be full code. Will confirm with patient once she is more awake. N.p.o. Full dose Lovenox and warfarin will help with DVT prophylaxis as well. Attestations Medical Necessity Statement*: Admission for more than 2 midnights for altered mental status, possible SBP, anasarca, subtherapeutic INR in setting of mitral valve replacement. Time Spent in Patient Care: Greater than 35 minutes (>than 50% of time spent in counselling and/or direct pt care on unit). Coding Level of Care Code Acute Starch And Prosize Mixer for Main Duran Diagnoses Altered mental status R41.82 Abdominal pain R10.9 Anasarca R60.1 Hyponatremia E87.1 Subtherapeutic international normalized ratio (INR) R79.1 H/O mitral valve replacement Z95.2 Metastasis to liver of unknown origin C78.7; C80.1
[2021-03-12 17:59] LABS: Apprearance, Body Fluid CLEAR; Color, Body Fluid YELLOW
[2021-03-12 18:29] LABS: Albumin Body Fluid 0.9 g/dL; Amylase Body Fluid 10 U/L; Cholesterol Body Fluid 40 mg/dL (0-200); Fluid Alkaline Phos. 86 IU/L; LDH Body Fluid 545 U/L; Total Protein Body Fluid 1.6 g/dL; Triglycerides Body Fluid 56 mg/dL (0-150)
[2021-03-12 18:30] LABS: PATH Referral YES; Uric Acid Body Fluid 9 mg/dL
[2021-03-12 18:45] LABS: Potassium, Radom Urine 26 mmol/L
[2021-03-12 19:00] LABS: Urine Random Chloride 14 mmol/L; Urine Random Sodium 10 mmol/L
[2021-03-12 19:04] LABS: Thyroid Stimulating Hormone 3.26 uIU/mL (0.27-4.20)
[2021-03-12 19:05] LABS: Procalcitonin 0.87 ng/mL (0-0.5)
[2021-03-12 19:18] LABS: Iron 39 ug/dL (37-145)
[2021-03-12 19:31] LABS: Gamma Glutamyl Transferase 448 U/L (5-36)
[2021-03-12 19:42] LABS: Lactate Dehydrogenase 1964 U/L (135-214)
[2021-03-12 19:49] LABS: Ammonia 21 umol/L (11-51)
[2021-03-12 20:01] LABS: Percent Saturation 15.8 % (20-50); Total Iron Binding Capacity 246 mcg/dl; Unsaturated Iron Binding 207 ug/dL (112-347)
[2021-03-12] MEDS: enoxaparin 100 mg/mL Syringe 50 MG SUBCUT (22:12)
[2021-03-12] MEDS: piperacillin-tazobactam 3.375 GM in sodium chloride 0.9% (plus) 50 ML IV (22:13)
[2021-03-12] MEDS: ropinirole 0.25 mg Tablet 0.5 MG PO (22:13)
[2021-03-12] MEDS: gabapentin 100 mg Capsule PO (22:46)
[2021-03-13] VITALS (8 sets, daily range): BP systolic 119–134; BP diastolic 72–87; PULSE 85–101; RESP 16–20; TEMP 36.6–36.7; O2SAT 93–100
[2021-03-13 05:26] LABS: Basophils % 0.2 %; Hematocrit 35.1 % (37.0-47.0); Hemoglobin 11.4 g/dL (11.5-15.3); Lymphocytes # 0.9 10^3/uL (0.8-4.8); Lymphocytes % 6.7 %; Mean Corpuscular HGB Conc 32.5 g/dL (30.0-36.0); Mean Corpuscular Hemoglobin 29.5 pg (28.0-34.0); Mean Corpuscular Volume 90.9 fL (81-99); Mean Platelet Volume 10.3 fL (7.4-10.4); Monocytes # 1.4 10^3/uL (0.2-0.9); Monocytes % 10.1 %; Neutrophils # 11.26 10^3/uL (1.8-7.7); Neutrophils % 82.2 %; Nucleated Red Blood Cells % 0 %; Platelet Count 156 10^3/cmm (130-400); Red Blood Count 3.86 10^6/uL (4.1-5.3); Red Cell Distribution Width 18.9 % (12.1-15.1); White Blood Count 13.7 10^3/uL (4.0-10.0)
[2021-03-13] MEDS: piperacillin-tazobactam 3.375 GM in sodium chloride 0.9% (plus) 50 ML IV ×3 (05:50→20:47)
[2021-03-13 06:01] LABS: Albumin Level 2.4 g/dL (3.5-5.2); Alkaline Phosphatase 492 IU/L (35-105); Potassium 4.1 mmol/L (3.5-5.1); Sodium 129 mmol/L (136-145)
[2021-03-13 06:54] LABS: Alanine Aminotransferase 36 U/L (0-33); Anion Gap 19.1 (5-19); Aspartate Amino Transferase 93 U/L (0-32); Blood Urea Nitrogen 21 mg/dL (8-23); C Reactive Protein 135.5 mg/L (0.0-4.9); Calcium 7.8 mg/dL (8.5-10.5); Carbon Dioxide 24 mmol/L (22-29); Creatine Phosphokinase 103 U/L (26-192); Glomerular Filtration Rate 99.1 mL/min (90-130); Glucose 83 mg/dL (65-115); Magnesium 2.1 mg/dL (1.7-2.3); Osmolality Calculated 270 mOsm/kg (285-295); Total Bilirubin 2.6 mg/dL (0.15-1.2); Total Protein 5.4 g/dL (6.6-8.7)
[2021-03-13 06:55] LABS: Chloride 90 mmol/L (98-107)
--- NOTE | 2021-03-13 07:00 | USCV_ITS ---
Jacinda Cisneros Age: 70 Gender: F : 1950 Exam Date: 03/13/2021 06:20 Ordering Phys: Bora Parra MD Technologist: Bettie Byrne Exam Location: [facility] – [place] Indication: MITRAL VALVAE REPLACEMENT BP: 125 / 72 HR: 90 Rhythm: Sinus Technical Quality: Good MEASUREMENTS (Male / Female) Normal Values 2D ECHO LV Diastolic Diameter PLAX 3.7 cm 4.2 - 5.9 / 3.9 - 5.3 cm LV Systolic Diameter PLAX 2.2 cm IVS Diastolic Thickness 1.3 cm 0.6 - 1.0 / 0.6 - 0.9 cm IVS Systolic Thickness 1.8 cm LVPW Diastolic Thickness 1.1 cm 0.6 - 1.0 / 0.6 - 0.9 cm LVPW Systolic Thickness 1.8 cm LVOT Diameter 2.0 cm LV Ejection Fraction 2D Teich 71.8 % LV Ejection Fraction MOD 2C 40.2 % LV Ejection Fraction 2C AL 36.9 % LA Diameter 3.5 cm LA Width 2.8 cm LA Height 3.3 cm Aorta at Sinotubular Diameter 3.2 cm M-MODE LV Diastolic Diameter MM 3.9 cm 4.2 - 5.9 / 3.9 - 5.3 cm LV Systolic Diameter MM 2.7 cm LV Ejection Fraction MM Teich 59.1 % IVS Diastolic Thickness MM 1.4 cm 0.6 - 1.0 / 0.6 - 0.9 cm IVS Systolic Thickness MM 1.6 cm LVPW Diastolic Thickness MM 0.8 cm 0.6 - 1.0 / 0.6 - 0.9 cm LVPW Systolic Thickness MM 1.4 cm Aortic Annulus Diameter 2.3 cm LA Ao Ratio MM 1.5 DOPPLER AV Peak Velocity 121.0 cm/s LVOT Peak Velocity 78.0 cm/s AV Area Cont Eq vti 1.3 cm squared AV Area Cont Eq pk 2.1 cm squared MV Peak Velocity 151.0 cm/s MV Area PHT 3.8 cm squared Mitral E to A Ratio 1.8 MV E' Velocity 91.0 cm/s Mitral E to MV E' Ratio 12.7 Mitral E to LV E' Lateral Ratio 11.1 Mitral E to LV E' Septal Ratio 15.2 TR Peak Velocity 187.7 cm/s TR Peak Gradient 14.1 mmHg TR Mean Velocity 138.7 cm/s TR Mean Gradient 8.6 mmHg TR Velocity Time Integral 42.8 cm TV Peak E Velocity 80.0 cm/s Right Atrial Pressure 3.0 mmHg Pulmonary Artery Systolic Pressu 17.1 mmHg PV Peak Velocity 87.0 cm/s RV Acceleration Time 0.1 s RV Ejection Time 0.2 s RV AcT/ET 0.4 FINDINGS Left Ventricle Normal left ventricular cavity size. Mildly increased left ventricular wall thickness. Normal left ventricular systolic function. Left ventricular ejection fraction is estimated at 55 %. No diagnostic regional wall motion normality. Abnormal septal motion consistent with conduction abnormality. Right Ventricle Normal right ventricular size and systolic function. Right ventricular systolic pressure 22 mmHg. Right Atrium Normal right atrial size. Right atrial pressure estimated at 3 mmHg. Left Atrium Left atrium not well visualized. Mitral Valve Mechanical mitral valve prosthesis seems to be well-seated and normal functioning. Mean gradient through mitral valve 3.2 mmHg. Trace valvular and possibly perivalvular regurgitation. Aortic Valve Mildly thickened trileaflet aortic valve. No aortic valve stenosis. Trace aortic valve regurgitation. Tricuspid Valve Structurally normal tricuspid valve. No tricuspid valve stenosis. Mild tricuspid valve regurgitation. Pulmonic Valve Structurally normal pulmonic valve. No pulmonary valve stenosis. Trace pulmonary valve regurgitation. Pericardium No pericardial effusion visualized on this study. Aorta Normal-sized aortic root. Normal-sized inferior vena cava. CONCLUSIONS 1. Normal left ventricular cavity size and systolic function. Mildly increased left ventricular wall thickness. Mild concentric left ventricular hypertrophy. Left ventricular ejection fraction is estimated at 55 %. No diagnostic regional wall motion normality. Abnormal septal motion consistent with conduction abnormality. 2. Pulmonary artery pressure estimated at 22 mmHg. 3. Mechanical mitral valve prosthesis seems to be well-seated and normal functioning. Mean gradient through mitral valve 3.2 mmHg. Trace valvular and possibly perivalvular regurgitation. 4. Mild tricuspid valve regurgitation. 5. No prior similar studies to compare. Maggie Melvin MD (Electronically Signed) Final Date: 18 March 2021 10:23 S
--- NOTE | 2021-03-13 07:30 | PC.NURSE ---
Patient refused Parrish Catheter
[2021-03-13] MEDS: spironolactone 25 mg Tablet PO (08:28)
[2021-03-13] MEDS: pantoprazole DR 40 mg Tablet PO (08:28)
[2021-03-13] MEDS: venlafaxine ER (24HR) 150 mg Capsule PO (08:28)
[2021-03-13] MEDS: gabapentin 100 mg Capsule PO ×3 (08:28→20:47)
[2021-03-13] MEDS: verapamil ER 180 mg Tablet 360 MG PO (08:29)
[2021-03-13] MEDS: albuterol 8 gm MDI 2 PUFF INHALATION (08:41)
[2021-03-13] MEDS: enoxaparin 60 mg/0.6 mL Syringe 50 MG SUBCUT ×2 (10:14→22:05)
[2021-03-13] MEDS: FUROsemide 10 mg/mL SDV 4mL 40 MG IVP ×2 (10:15→22:40)
[2021-03-13] MEDS: oxyCODONE-APAP 5-325 mg Tablet 1 TAB PO (10:15)
--- NOTE | 2021-03-13 10:36 | PC.CHAP ---
Pastoral Care Encounter/Spiritual Assessment Type of Contact [] Declined contracts administrator visit [] Patient/Family/Request visit [] Outpatient visit [] Follow-up visit [] Physician referral [] Code/Alert [x] Routine visit [] Staff referral [] Actively dying [] Patient sleeping [] Family support [] [] Out of room [] Palliative care [] [x] Receiving care in room [] Pre-surgical visit [] Trauma [x] Long length of stay [] ICU visit [] Other: Relational/Emotional Strength [x] Patient feels connected with others/family/visitors/staff [] Distress [] Loneliness/isolation [] Abandonment Spirituality of Patient [x] Person of Yanet [] Attends Jehovah'S Witness of their [place] [x] Believes in Prayer [] Reads Bible or Religion materials [] There are Spiritual issues to be addressed 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 [x] Prayer [x] Active listening [x] Non-anxious presence [x] Spiritual/emotional support [] Crisis/trauma care [x] Spiritual counseling [] Bereavement support [] Provided bereavement packet [] Provided Bible/devotional materials [] Provided toy/stuffed animal, coloring book to patient or family member [] Provided Communion [] Anointing/[place] [] Salvation [x] Completed spiritual assessment [] Other: Impact on Illness or Injury [] Angry [] Fearful [x] Anxious [] Often cries [] Exhaustion [x] Unable to work [] Unable to attend temple [] Unable to walk/stand [] Unable to read [] Unable to drive [] Unable to eat/drink [] Unable to sleep [] Unable to be with family [] Patient intubated [] Other: Summary She is weak, doesn't know about her recovery arik or healing process, has a good attitude going home to family Time spent with patient 10 mins
--- NOTE | 2021-03-13 11:19 | PM.PN ---
Subjective Subjective: Interval history: Patient is a lot more awake today. Able to have complete conversation. She states she has been feeling weak for last 1 week. She has been having increased puffiness of her body mostly her abdomen increasing for last 3 days. She is not sure if she has been taking her Lovenox since discharge. She states she is taking warfarin 2 mg oral daily no acute events overnight. Patient lying comfortably in bed on examination. Patient's and daughter at bedside. Vitals/I&O/Wt Last Vital Signs Temp 97.9 F 03/13/21 10:50 Pulse 85 03/13/21 10:50 Resp 16 03/13/21 10:50 BP 119/74 03/13/21 10:50 Pulse Ox 94 03/13/21 10:50 03/12/21 03/13/21 03/13/21 22:59 06:59 14:59 Intake Total 50 / 50 350 / 350 Output Total 800 / 800 Balance -750 / -750 350 / 350 Weight last 48 hrs Weight 58.105 kg Weight 54.885 kg Physical Exam Narrative: EXAM NARRATIVE: General: No acute distress, AO x3 on examination HEENT: PERRLA, pupils bilaterally equal and reactive Chest: Normal vesicular sounds all around, decreased air entry bilaterally in the lower zones CVS: S1-S2 regular, no murmurs, no tachycardia, no gallops, no rubs Abdomen: Soft, mild tenderness on generalized examination, bowel sounds sluggish, distended, difficult to comment on organomegaly Neuro: No focal deficits, no facial deformity, moving all 4 limbs 5 x 5. Data : 03/13/21 04:56 03/13/21 04:56 Micro: Microbiology 03/12/21 13:36 Bacterial Antigens - Final Urine Kidney 03/12/21 17:04 Gram Stain - Final Peritoneal Fluid 03/12/21 19:20 Blood Culture - Preliminary Blood SPECIMEN COLLECTED 03/12/21 19:15 Blood Culture - Preliminary Blood SPECIMEN COLLECTED 03/12/21 13:36 Legionella Urinary Antigen - Final Urethra A&P Assessment and plan (1) Altered mental status: Status: Acute (2) Abdominal pain: Status: Acute (3) Anasarca: Status: Acute (4) Hyponatremia: Status: Acute (5) Subtherapeutic international normalized ratio (INR): Status: Acute (6) H/O mitral valve replacement: Status: Acute (7) Metastasis to liver of unknown origin: Status: Acute Additional A&P Information 70year-old female past medical history of metastasis to the liver, mitral valve replacement on outpatient transition from Lovenox to warfarin presented to to the ER today because of worsening anasarca and found to be in altered mental status. Altered mental status: Resolved. Most likely secondary to pain medication received in the ER but cannot rule out acute metabolic encephalopathy. Paracentesis fluid results appreciated. Borderline WBC of 218 with predominant mononuclear cells. No growth on culture. MRSA negative. Ammonia levels, urine drug screen negative. Stop vancomycin. Continue Zosyn for now. If patient's culture remain negative we will stop Zosyn. Anasarca: Most likely from hypoproteinemia from liver metastasis. Continue IV Lasix 40 mg twice daily for 1 more day. Continue home dose of spironolactone. We will monitor for hypotension. History of mitral valve replacement: No signs of CHF at present. Echocardiogram results awaited. Discussed with patient, patient's and daughter at bedside. Patient would want Subtherapeutic INR: Lovenox 1 mg/kg body weight subcu every 12 as per the creatinine clearance. Warfarin 6 mg daily. Daily INR check. We will stop Lovenox once INR at goal. Goal INR around 2.5-3. Metastasis to liver: Patient is to follow-up with Dr. Avery as an outpatient tomorrow. If patient does not have SBP will confirm with Dr. Avery regarding further plans for treatment. Port-A-Cath in place. Restart patient's home dose of mirtazapine, Requip, Effexor. CODE STATUS: Her daughter to be the DPOA going forward. For now she will want to remain full code. Cardiac diet. Full dose Lovenox and warfarin will help with DVT prophylaxis as well. Attestations Medical Necessity Statement*: Patient requires further hospitalization for management of subtherapeutic INR in setting of mechanical mitral valve, anasarca metastasis to liver of unknown primary, resolving altered mental status while SBP is ruled out. Time Spent in Patient Care: Greater than 35 minutes (>than 50% of time spent in counselling and/or direct pt care on unit). 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
[2021-03-13] MEDS: LORazepam 1 mg Tablet 0.5 MG PO ×2 (12:35→20:47)
[2021-03-13] MEDS: warfarin 3 mg Tablet 6 MG PO (13:39)
--- NOTE | 2021-03-13 18:04 | PC.NURSE ---
Patient's daughter's phone number is [phone].
--- NOTE | 2021-03-13 19:30 | PC.NURSE ---
Report to Honorio MOISE at this time.
[2021-03-13] MEDS: ropinirole 0.25 mg Tablet 0.5 MG PO (20:47)
[2021-03-14] VITALS (9 sets, daily range): BP systolic 101–113; BP diastolic 60–75; PULSE 75–117; RESP 16–18; TEMP 36.1–36.7; O2SAT 92–96
[2021-03-14] MEDS: piperacillin-tazobactam 3.375 GM in sodium chloride 0.9% (plus) 50 ML IV (06:01)
[2021-03-14 06:11] LABS: Basophils % 0.2 %; Eosinophils % 0.1 %; Hematocrit 39.6 % (37.0-47.0); Hemoglobin 12.7 g/dL (11.5-15.3); Lymphocytes # 0.9 10^3/uL (0.8-4.8); Lymphocytes % 7.4 %; Mean Corpuscular HGB Conc 32.1 g/dL (30.0-36.0); Mean Corpuscular Volume 93.6 fL (81-99); Mean Platelet Volume 10.8 fL (7.4-10.4); Neutrophils # 10.41 10^3/uL (1.8-7.7); Neutrophils % 83.6 %; Nucleated Red Blood Cells % 0 %; Platelet Count 141 10^3/cmm (130-400); Red Blood Count 4.23 10^6/uL (4.1-5.3); Red Cell Distribution Width 19.6 % (12.1-15.1); White Blood Count 12.4 10^3/uL (4.0-10.0)
[2021-03-14 06:25] LABS: Alanine Aminotransferase 44 U/L (0-33); Albumin Level 2.3 g/dL (3.5-5.2); Alkaline Phosphatase 733 IU/L (35-105); Blood Urea Nitrogen 21 mg/dL (8-23); Calcium 7.4 mg/dL (8.5-10.5); Carbon Dioxide 24 mmol/L (22-29); Chloride 92 mmol/L (98-107); Globulin 2.9 g/dL (1.3-4.6); Glucose 93 mg/dL (65-115); Osmolality Calculated 275 mOsm/kg (285-295); Sodium 131 mmol/L (136-145); Total Bilirubin 2.3 mg/dL (0.15-1.2); Total Protein 5.2 g/dL (6.6-8.7)
[2021-03-14 06:39] LABS: Anion Gap 18.5 (5-19); Aspartate Amino Transferase 121 U/L (0-32); Potassium 3.5 mmol/L (3.5-5.1)
[2021-03-14] MEDS: venlafaxine ER (24HR) 150 mg Capsule PO (08:50)
[2021-03-14] MEDS: mirtazapine 15 mg Tablet PO (08:50)
[2021-03-14] MEDS: pantoprazole DR 40 mg Tablet PO (08:50)
[2021-03-14] MEDS: gabapentin 100 mg Capsule PO ×3 (08:50→21:40)
[2021-03-14] MEDS: LORazepam 1 mg Tablet 0.5 MG PO ×3 (08:50→21:41)
[2021-03-14] MEDS: verapamil ER 180 mg Tablet 360 MG PO (08:50)
[2021-03-14] MEDS: spironolactone 25 mg Tablet PO (08:50)
[2021-03-14] MEDS: albuterol 8 gm MDI 2 PUFF INHALATION (09:49)
[2021-03-14] MEDS: FUROsemide 10 mg/mL SDV 4mL 40 MG IVP (10:54)
[2021-03-14] MEDS: enoxaparin 60 mg/0.6 mL Syringe 50 MG SUBCUT ×2 (10:54→21:40)
[2021-03-14] MEDS: warfarin 3 mg Tablet 6 MG PO (14:47)
--- NOTE | 2021-03-14 14:59 | P.PN_ITS ---
Subjective Subjective: Interval history: Patient is a lot more awake today. Able to have complete conversation. She states she has been feeling weak for last 1 week. She has been having increased puffiness of her body mostly her abdomen increasing for last 3 days. She is not sure if she has been taking her Lovenox since discharge. She states she is taking warfarin 2 mg oral daily no acute events overnight. Patient lying comfortably in bed on examination. Patient's and daughter at bedside. Vitals/I&O/Wt Last Vital Signs Temp 97.6 F 03/14/21 11:28 Pulse 78 03/14/21 11:28 Resp 18 03/14/21 11:28 BP 106/67 03/14/21 11:28 Pulse Ox 95 03/14/21 11:28 03/13/21 03/14/21 03/14/21 22:59 06:59 14:59 Intake Total 250 / 600 50 / 650 530 / 530 Balance 250 / 600 50 / 650 530 / 530 Weight last 48 hrs Weight 59.239 kg Weight 58.105 kg Physical Exam Narrative: EXAM NARRATIVE: General: No acute distress, AO x3 on examination HEENT: PERRLA, pupils bilaterally equal and reactive Chest: Normal vesicular sounds all around, decreased air entry bilaterally in the lower zones CVS: S1-S2 regular, no murmurs, no tachycardia, no gallops, no rubs Abdomen: Soft, mild tenderness on generalized examination, bowel sounds sl uggish, distended, difficult to comment on organomegaly Neuro: No focal deficits, no facial deformity, moving all 4 limbs 5 x 5. Data : 03/14/21 05:21 03/14/21 05:21 Micro: Microbiology 03/12/21 17:04 Gram Stain - Final Peritoneal Fluid Body Fluid Culture - Preliminary 03/12/21 19:20 Blood Culture - Preliminary Blood NEGATIVE TO DATE 03/12/21 19:15 Blood Culture - Preliminary Blood NEGATIVE TO DATE 03/12/21 19:25 MRSA Culture - Final Nose Laboratory Results WBC 12.4 10^3/uL (4.0-10.0) H 03/14/21 05:21 RBC 4.23 10^6/uL (4.1-5.3) 03/14/21 05:21 Hgb 12.7 g/dL (11.5-15.3) 03/14/21 05:21 Hct 39.6 % (37.0-47.0) 03/14/21 05:21 MCV 93.6 fL (81-99) 03/14/21 05:21 MCH 30.0 pg (28.0-34.0) 03/14/21 05:21 MCHC 32.1 g/dL (30.0-36.0) 03/14/21 05:21 RDW 19.6 % (12.1-15.1) H 03/14/21 05:21 Plt Count 141 10^3/cmm (130-400) 03/14/21 05:21 MPV 10.8 fL (7.4-10.4) H 03/14/21 05:21 Neut % (Auto) 83.6 % 03/14/21 05:21 Lymph % (Auto) 7.4 % 03/14/21 05:21 [place] % (Auto) 8.0 % 03/14/21 05:21 Eos % (Auto) 0.1 % 03/14/21 05:21 Baso % (Auto) 0.2 % 03/14/21 05:21 Neut # (Auto) 10.41 10^3/uL (1.8-7.7) H 03/14/21 05:21 Lymph # (Auto) 0.9 10^3/uL (0.8-4.8) 03/14/21 05:21 [place] # (Auto) 1.0 10^3/uL (0.2-0.9) H 03/14/21 05:21 Eos # (Auto) 0.0 10^3/uL (0.0-0.8) 03/14/21 05:21 Baso # (Auto) 0.0 10^3/uL (0.0-0.1) 03/14/21 05:21 Nucleated RBC % (auto) 0 % 03/14/21 05:21 Nucleated RBCs # 0.0 /100WBC 03/14/21 05:21 Differential Comment Yes 03/12/21 17:04 PT 22.20 SECONDS (12.1-14.9) H 03/14/21 05:21 INR 1.90 (0.8-1.2) H 03/14/21 05:21 Sodium 131 mmol/L (136-145) L 03/14/21 05:21 Potassium 3.5 mmol/L (3.5-5.1) 03/14/21 05:21 Chloride 92 mmol/L (98-107) L 03/14/21 05:21 Carbon Dioxide 24 mmol/L (22-29) 03/14/21 05:21 Anion Gap 18.5 (5-19) 03/14/21 05:21 BUN 21 mg/dL (8-23) 03/14/21 05:21 Creatinine 0.7 mg/dL (0.5-0.9) 03/14/21 05:21 GFR Calculation 83.0 mL/min (90-130) L 03/14/21 05:21 Glucose 93 mg/dL (65-115) 03/14/21 05:21 Calculated Osmolality 275 mOsm/kg (285-295) L 03/14/21 05:21 Calcium 7.4 mg/dL (8.5-10.5) L 03/14/21 05:21 Phosphorus 4.0 mg/dL (2.5-4.5) 03/13/21 04:56 Magnesium 2.1 mg/dL (1.7-2.3) 03/13/21 04:56 Iron 39 ug/dL (37-145) 03/12/21 13:00 TIBC 246 mcg/dl 03/12/21 13:00 % Saturation 15.8 % (20-50) L 03/12/21 13:00 Unsat Iron Binding 207 ug/dL (112-347) 03/12/21 13:00 Total Bilirubin 2.3 mg/dL (0.15-1.2) H 03/14/21 05:21 GGT 448 U/L (5-36) H 03/12/21 13:00 AST 121 U/L (0-32) H 03/14/21 05:21 ALT 44 U/L (0-33) H 03/14/21 05:21 Alkaline Phosphatase 733 IU/L (35-105) H 03/14/21 05:21 Ammonia 21 umol/L (11-51) 03/12/21 19:15 Lactate Dehydrogenase 1964 U/L (135-214) H 03/12/21 13:00 Creatine Kinase 103 U/L (26-192) 03/13/21 04:56 Troponin T Baseline 24 ng/L (0-10) H 03/12/21 13:00 C-Reactive Protein 135.5 mg/L (0.0-4.9) H 03/13/21 04:56 NT-Pro-B Natriuret Pep 1615 pg/mL (0-125) H 03/12/21 13:00 NT-Pro-B Natriuret Pep Cancelled 03/12/21 13:00 Total Protein 5.2 g/dL (6.6-8.7) L 03/14/21 05:21 Albumin 2.3 g/dL (3.5-5.2) L 03/14/21 05:21 Globulin 2.9 g/dL (1.3-4.6) 03/14/21 05:21 Lipase 20 U/L (13-60) 03/12/21 13:00 Procalcitonin 0.87 ng/mL (0-0.5) H 03/12/21 13:00 TSH 3.26 uIU/mL (0.27-4.20) 03/12/21 13:00 Urine Color Dark yellow (Yellow) 03/12/21 13:36 Urine Appearance Clear (CLEAR) 03/12/21 13:36 Urine pH 5 (5-7) 03/12/21 13:36 Ur Specific [place] 1.015 (1.005-1.030) 03/12/21 13:36 Urine Protein Neg (Negative) 03/12/21 13:36 Urine Glucose (UA) Norm (Normal) 03/12/21 13:36 Urine Ketones Negative (Negative) 03/12/21 13:36 Urine Blood 2+ (Negative) H 03/12/21 13:36 Urine Nitrate Negative (Negative) 03/12/21 13:36 Urine Bilirubin 1+ (Negative) H 03/12/21 13:36 Urine Urobilinogen 8 mg/dL (Negative) H 03/12/21 13:36 Ur Leukocyte Esterase Trace (Negative) H 03/12/21 13:36 Urine RBC 0-4 /hpf (0-2) H 03/12/21 13:36 Urine WBC 0-4 /hpf (0-5) H 03/12/21 13:36 Ur Squamous Epith Cells 0-4 /hpf (0-5) H 03/12/21 13:36 Amorphous Sediment Not Reportable 03/12/21 13:36 Urine Bacteria 1+ /hpf (NONE) H 03/12/21 13:36 Hyaline Casts 0-4 /lpf H 03/12/21 13:36 Ur Random Sodium 10 mmol/L 03/12/21 13:36 Ur Random Potassium 26 mmol/L 03/12/21 13:36 Ur Random Chloride 14 mmol/L 03/12/21 13:36 Fluid Color Yellow 03/12/21 17:04 Fluid Appearance Clear 03/12/21 17:04 Fluid Specific Grav 1.010 03/12/21 17:04 Fluid pH 8.0 03/12/21 17:04 Fluid WBC 218 /uL 03/12/21 17:04 Fluid RBC 0 10^3/uL 03/12/21 17:04 Fld Polynuclear WBCs # 0.074 03/12/21 17:04 Fld Polynuclear WBCs % 34.000 % 03/12/21 17:04 Fl Mononucl WBCs #(Auto) 0.144 03/12/21 17:04 Fl Mononuclear % Auto 66.000 % 03/12/21 17:04 Fluid Glucose 105.0 mg/dL 03/12/21 17:04 Fluid Total Protein 1.6 g/dL 03/12/21 17:04 Fluid Albumin 0.9 g/dL 03/12/21 17:04 Fluid LDH 545 U/L 03/12/21 17:04 Fluid Amylase 10 U/L 03/12/21 17:04 Fluid Alk Phosphatase 86 IU/L 03/12/21 17:04 Fluid Cholesterol 40 mg/dL (0-200) 03/12/21 17:04 Fluid Triglycerides 56 mg/dL (0-150) 03/12/21 17:04 Fluid Uric Acid 9 mg/dL 03/12/21 17:04 Impressions Chest X-Ray 03/12/21 12:36 Impression: Atherosclerosis. Abdomen/Pelvis CT 03/12/21 14:20 IMPRESSION: 1. Diffuse abdominal and pelvic ascites has developed since the prior examinations. 2. Innumerable metastatic lesions throughout both hepatic lobes appears sligh tly progressed compared to the prior examinations. 3. Splenomegaly with portal hypertension. 4. Small esophageal hiatal hernia. 5. Upper abdominal and gloria hepatis lymphadenopathy similar to previous. 6. No other significant interval changes. Paracentesis Ultrasound 03/12/21 15:35 IMPRESSION: Uncomplicated ultrasound-guided paracentesis. Removal of 5000 cc A&P Assessment and plan (1) Altered mental status: Status: Acute (2) Abdominal pain: Status: Acute (3) Anasarca: Status: Acute (4) Hyponatremia: Status: Acute (5) Subtherapeutic international normalized ratio (INR): Status: Acute (6) H/O mitral valve replacement: Status: Acute (7) Metastasis to liver of unknown origin: Status: Acute Additional A&P Information 70year-old female past medical history of metastasis to the liver, mitral valve replacement on outpatient transition from Lovenox to warfarin presented to to the ER today because of worsening anasarca and found to be in altered mental status. Altered mental status: Resolved. Most likely secondary to pain medication received in the ER but cannot rule out acute metabolic encephalopathy. Paracentesis fluid results appreciated. Borderline WBC of 218 with predominant mononuclear cells. No growth on culture. MRSA negative. Peritoneal fluid negative for malignancy as per path report. Ammonia levels, urine drug screen negative. Less likely patient has SBP. For now we will stop Zosyn and continue to monitor for next 24 hours. Patient has remained afebrile hemodynamically stable during hospitalization. Anasarca: Most likely from hypoproteinemia from liver metastasis. Oral Lasix 40 mg twice daily. Spironolactone 25 mg daily. We will monitor for hypotension. History of mitral valve replacement: No signs of CHF at present. Echocardiogram results awaited. Subtherapeutic INR: Lovenox 1 mg/kg body weight subcu every 12 as per the creatinine clearance. Warfarin 6 mg daily. Daily INR check. We will stop Lovenox once INR at goal. Goal INR around 2.5-3. Metastasis to liver: Patient is to follow-up with Dr. Avery as an outpatient tomorrow. If patient does not have SBP will confirm with Dr. Avery regarding further plans for treatment. Port-A-Cath in place. Restart patient's home dose of mirtazapine, Requip, Effexor. CODE STATUS: Her daughter to be the DPOA going forward. For now she will want to remain full code. Cardiac diet. Full dose Lovenox and warfarin will help with DVT prophylaxis as well. Discharge planning: If patient's INR continues to improve can plan to discharge tomorrow with transition from Lovenox to warfarin. Patient will require home health on discharge. That has been provided with case management. Patient will follow-up as an outpatient with Dr. Avery from oncology. Attestations Medical Necessity Statement*: Patient requires further hospitalization for management of subtherapeutic INR while transition from Lovenox to oral warfarin with a history of in situ mechanical mitral valve, anasarca due to metastasis to liver. Time Spent in Patient Care: Greater than 35 minutes (>than 50% of time spent in counselling and/or direct pt care on unit) . 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
--- NOTE | 2021-03-14 15:08 | PC.RESP ---
Smoking Cessation and Pulmonary Rehab information sent to patient.
[2021-03-14] MEDS: FUROsemide 40 mg Tablet PO (17:00)
[2021-03-14] MEDS: oxyCODONE-APAP 5-325 mg Tablet 1 TAB PO (17:03)
[2021-03-14] MEDS: ropinirole 0.25 mg Tablet 0.5 MG PO (21:40)
[2021-03-15] VITALS (8 sets, daily range): BP systolic 113–126; BP diastolic 68–75; PULSE 82–106; RESP 15–20; TEMP 36.3–36.8; O2SAT 92–98
[2021-03-15] MEDS: oxyCODONE-APAP 5-325 mg Tablet 1 TAB PO (02:40)
[2021-03-15 07:50] LABS: Basophils % 0.3 %; Eosinophils % 0.1 %; Hematocrit 40.2 % (37.0-47.0); Hemoglobin 12.8 g/dL (11.5-15.3); Lymphocytes % 8.8 %; Mean Corpuscular HGB Conc 31.8 g/dL (30.0-36.0); Mean Corpuscular Hemoglobin 29.8 pg (28.0-34.0); Mean Corpuscular Volume 93.5 fL (81-99); Mean Platelet Volume 11.5 fL (7.4-10.4); Monocytes % 8.6 %; Neutrophils # 9.15 10^3/uL (1.8-7.7); Neutrophils % 81.7 %; Nucleated Red Blood Cells % 0 %; Platelet Count 130 10^3/cmm (130-400); Red Cell Distribution Width 19.6 % (12.1-15.1); White Blood Count 11.2 10^3/uL (4.0-10.0)
[2021-03-15 08:08] LABS: INR 2.93 (0.8-1.2)
[2021-03-15] MEDS: albuterol 8 gm MDI 2 PUFF INHALATION (08:08)
[2021-03-15 08:11] LABS: Alanine Aminotransferase 49 U/L (0-33); Albumin Level 2.3 g/dL (3.5-5.2); Alkaline Phosphatase 693 IU/L (35-105); Anion Gap 13.4 (5-19); Aspartate Amino Transferase 124 U/L (0-32); Blood Urea Nitrogen 20 mg/dL (8-23); Calcium 7.6 mg/dL (8.5-10.5); Carbon Dioxide 28 mmol/L (22-29); Chloride 89 mmol/L (98-107); Glomerular Filtration Rate 99.1 mL/min (90-130); Glucose 84 mg/dL (65-115); Osmolality Calculated 266 mOsm/kg (285-295); Potassium 3.4 mmol/L (3.5-5.1); Sodium 127 mmol/L (136-145); Total Bilirubin 2.3 mg/dL (0.15-1.2); Total Protein 5.3 g/dL (6.6-8.7)
[2021-03-15] MEDS: FUROsemide 40 mg Tablet PO (09:13)
[2021-03-15] MEDS: enoxaparin 60 mg/0.6 mL Syringe 50 MG SUBCUT (09:14)
[2021-03-15] MEDS: gabapentin 100 mg Capsule PO (09:14)
[2021-03-15] MEDS: mirtazapine 15 mg Tablet PO (09:14)
[2021-03-15] MEDS: pantoprazole DR 40 mg Tablet PO (09:14)
[2021-03-15] MEDS: spironolactone 25 mg Tablet PO (09:14)
[2021-03-15] MEDS: venlafaxine ER (24HR) 150 mg Capsule PO (09:14)
[2021-03-15] MEDS: LORazepam 1 mg Tablet 0.5 MG PO (09:14)
[2021-03-15] MEDS: alum-mag-hydroxide-sime 30 mL UDC 15 ML PO (09:20)
[2021-03-15] MEDS: verapamil ER 180 mg Tablet 360 MG PO (09:20)
--- NOTE | 2021-03-15 12:36 | PM.DCS ---
Discharge Providers Date of Admission: 03/12/21 15:43 Date of Discharge: March 15, 2021 Attending Provider at Admission: Bora Parra MD Attending Provider at Discharge: Bora Parra MD Diagnoses at Discharge Discharge Diagnosis (1) Altered mental status: Status: Acute (2) Abdominal pain: Status: Acute (3) Anasarca: Status: Acute (4) Hyponatremia: Status: Acute (5) Subtherapeutic international normalized ratio (INR): Status: Acute (6) H/O mitral valve replacement: Status: Acute Permanent problem details: Takes Coumadin (7) Metastasis to liver of unknown origin: Status: Acute Reason for Visit Reason for Visit: SOB, INCREASED SWELLING Hospital Course Hospital Course Most of the history taken over phone by patient's . 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 As per the documentation conversation with the ER physician patient was complaining of abdominal pain on presentation along with generalized swelling for which she received Dulzura in the ER after which she has become drowsy. Examination patient is sleeping but daily is are arousable and maintaining her airway. Patient complaining of occasional pain in her belly. As per he is not aware of patient has been having any diarrhea though he states on the contrary patient has been having constipation. Blood work in the ER showed a white count 12.3, hemoglobin of 12.4, platelet of 152, INR of 1.5, sodium of 124, chloride of 86, total bilirubin of 3.5, AST/ALT of 95/43, alkaline phosphatase of 550, albumin of 2.8, UA negative for nitrite, trace leuk esterase. CT abdomen pelvis was done and the results are as below. Patient admitted to hospital for management of altered mental status. She was found to be on multiple sedating when pain medications. Her pain medications were adjusted and patient responded well to treatment within 24 hours patient was awake alert and oriented. After waking up patient stated that her major complaint is that she has been feeling swollen up causing her to have difficulty in breathing which had resolved after paracentesis. Patient underwent paracentesis with radiology at the ER. 5000 cc of serous fluid was aspirated. Fluid study was negative for SBP. Fluid studies negative for any signs of malignancy. At start patient was started on broad-spectrum antibiotics which were deescalated and patient monitored off antibiotics for more than 24 hours. On admissions patient's ammonia levels are within normal limits. For swelling patient was started back on her home dose of Lasix and spironolactone to which she responded well and her creatinine has remained stable. Admission patient was found to be in subtherapeutic INR. Patient states she was not taking her Lovenox as she was never asked to on the day of discharge. She was slowly transitioned from Lovenox to oral warfarin. On the day of discharge her INR was 2.9. Her goal INR is 2.5-3.4 for mechanical mitral valve. She is been discharged on warfarin 4 mg daily with advised to check INR every 3 days for next 1 week. Her INR will be monitored with a primary care provider and the dose of warfarin will be further adjusted if needed accordingly. Multiple medications have been changed for the patient. They have been detailed below. Patient is to be on Lasix 40 mg twice daily, spironolactone 25 mg daily, gabapentin has been reduced 200 mg 3 times a day, lorazepam has been reduced to 0.5 mg 3 times a day and home dose of morphine has been stopped. For further compliance of medication and physical therapy home health has been arranged for the patient. Patient advised to follow-up with Dr. Avery within next 4 to 7 days for further work-up of cancer. Physical Exam Narrative: EXAM NARRATIVE: General: No acute distress, AO x3 on examination HEENT: PERRLA, pupils bilaterally equal and reactive Chest: Normal vesicular sounds all around, decreased air entry bilaterally in the lower zones CVS: S1-S2 regular, no murmurs, no tachycardia, no gallops, no rubs Abdomen: Soft, mild tenderness on generalized examination, bowel sounds sluggish, distended, difficult to comment on organomegaly Neuro: No focal deficits, no facial deformity, moving all 4 limbs 5 x 5. Discharge Data Data Completed and Pending: Completed Studies During Hospitalization Category Date Time Status CT abdomen pelvis w con* [id number] Stat Cat Scan 03/12/21 14:20 Completed XR chest 1V gloria ble [id number] Urgent Exams 03/12/21 12:36 [place] bd w [id number] Stat Ultrasound 03/12/21 15:35 Completed Pending at discharge Category Date Time Status Anaerobic Culture Routine Lab 03/12/21 17:04 Results Blood Culture Sta t Lab 03/12/21 19:20 Results Body Fluid Cultur e & GS Routine Lab 03/12/21 17:04 Results Fungal Culture no t HR/SK/BL Stat Lab 03/12/21 16:52 Uncollected Mycobacteria, Cul ture w/Fluor Routi ne Lab 03/12/21 17:04 Results Prothrombin Time INR AM LABS Lab 03/16/21 04:00 Ordered Cytology [PTH] Ro utine Pth 03/12/21 17:04 Received CV echo complete* [id number] Routine Ultrasound 03/13/21 07:00 Taken Labs from last 24 hours 03/15/21 03/15/21 03/15/21 07:07 07:07 07:07 WBC 11.2 H RBC 4.30 Hgb 12.8 Hct 40.2 MCV 93.5 MCH 29.8 MCHC 31.8 RDW 19.6 H Plt Count 130 MPV 11.5 H Neut % (Auto) 81.7 Lymph % (Auto) 8.8 [place] % (Auto) 8.6 Eos % (Auto) 0.1 Baso % (Auto) 0.3 Neut # (Auto) 9.15 H Lymph # (Auto) 1.0 [place] # (Auto) 1.0 H Eos # (Auto) 0.0 Baso # (Auto) 0.0 Nucleated RBC % (a uto) 0 Nucleated RBCs # 0.0 PT 31.10 H INR 2.93 H Sodium 127 L Potassium 3.4 L Chloride 89 L Carbon Dioxide 28 Anion Gap 13.4 BUN 20 Creatinine 0.6 GFR Calculation 99.1 Glucose 84 Calculated Osmolal ity 266 L Calcium 7.6 L Total Bilirubin 2.3 H AST 124 H ALT 49 H Alkaline Phosphata se 693 H Total Protein 5.3 L Albumin 2.3 L Globulin 3.0 Addt'l Data from Hospital Stay: Laboratory Results WBC 11.2 10^3/uL (4.0 -10.0) H 03/15/21 07:07 RBC 4.30 10^6/uL (4.1 -5.3) 03/15/21 07:07 Hgb 12.8 g/dL (11.5-1 5.3) 03/15/21 07:07 Hct 40.2 % (37.0-47.0 ) 03/15/21 07:07 MCV 93.5 fL (81-99) 03/15/21 07:07 MCH 29.8 pg (28.0-34. 0) 03/15/21 07:07 MCHC 31.8 g/dL (30.0-3 6.0) 03/15/21 07:07 RDW 19.6 % (12.1-15.1 ) H 03/15/21 07:07 Plt Count 130 10^3/cmm (130 -400) 03/15/21 07:07 MPV 11.5 fL (7.4-10.4 ) H 03/15/21 07:07 Neut % (Auto) 81.7 % 03/15/21 07:07 Lymph % (Auto) 8.8 % 03/15/21 07:07 [place] % (Auto) 8.6 % 03/15/21 07:07 Eos % (Auto) 0.1 % 03/15/21 07:07 Baso % (Auto) 0.3 % 03/15/21 07:07 Neut # (Auto) 9.15 10^3/uL (1.8 -7.7) H 03/15/21 07:07 Lymph # (Auto) 1.0 10^3/uL (0.8- 4.8) 03/15/21 07:07 [place] # (Auto) 1.0 10^3/uL (0.2- 0.9) H 03/15/21 07:07 Eos # (Auto) 0.0 10^3/uL (0.0- 0.8) 03/15/21 07:07 Baso # (Auto) 0.0 10^3/uL (0.0- 0.1) 03/15/21 07:07 Nucleated RBC % (a uto) 0 % 03/15/21 07:07 Nucleated RBCs # 0.0 /100WBC 03/15/21 07:07 Differential Comme nt Yes 03/12/21 17:04 PT 31.10 SECONDS (12 .1-14.9) H 03/15/21 07:07 INR 2.93 (0.8-1.2) H 03/15/21 07:07 Sodium 127 mmol/L (136-1 45) L 03/15/21 07:07 Potassium 3.4 mmol/L (3.5-5 .1) L 03/15/21 07:07 Chloride 89 mmol/L (98-107 ) L 03/15/21 07:07 Carbon Dioxide 28 mmol/L (22-29) 03/15/21 07:07 Anion Gap 13.4 (5-19) 03/15/21 07:07 BUN 20 mg/dL (8-23) 03/15/21 07:07 Creatinine 0.6 mg/dL (0.5-0. 9) 03/15/21 07:07 GFR Calculation 99.1 mL/min (90-1 30) 03/15/21 07:07 Glucose 84 mg/dL (65-115) 03/15/21 07:07 Calculated Osmolal ity 266 mOsm/kg (285- 295) L 03/15/21 07:07 Calcium 7.6 mg/dL (8.5-10 .5) L 03/15/21 07:07 Phosphorus 4.0 mg/dL (2.5-4. 5) 03/13/21 04:56 Magnesium 2.1 mg/dL (1.7-2. 3) 03/13/21 04:56 Iron 39 ug/dL (37-145) 03/12/21 13:00 TIBC 246 mcg/dl 03/12/21 13:00 % Saturation 15.8 % (20-50) L 03/12/21 13:00 Unsat Iron Binding 207 ug/dL (112-34 7) 03/12/21 13:00 Total Bilirubin 2.3 mg/dL (0.15-1 .2) H 03/15/21 07:07 GGT 448 U/L (5-36) H 03/12/21 13:00 AST 124 U/L (0-32) H 03/15/21 07:07 ALT 49 U/L (0-33) H 03/15/21 07:07 Alkaline Phosphata se 693 IU/L (35-105) H 03/15/21 07:07 Ammonia 21 umol/L (11-51) 03/12/21 19:15 Lactate Dehydrogen ase 1964 U/L (135-214 ) H 03/12/21 13:00 Creatine Kinase 103 U/L (26-192) 03/13/21 04:56 Troponin T Baselin e 24 ng/L (0-10) H 03/12/21 13:00 C-Reactive Protein 135.5 mg/L (0.0-4 .9) H 03/13/21 04:56 NT-Pro-B Natriuret Pep 1615 pg/mL (0-125 ) H 03/12/21 13:00 NT-Pro-B Natriuret Pep Cancelled 03/12/21 13:00 Total Protein 5.3 g/dL (6.6-8.7 ) L 03/15/21 07:07 Albumin 2.3 g/dL (3.5-5.2 ) L 03/15/21 07:07 Globulin 3.0 g/dL (1.3-4.6 ) 03/15/21 07:07 Lipase 20 U/L (13-60) 03/12/21 13:00 Procalcitonin 0.87 ng/mL (0-0.5 ) H 03/12/21 13:00 TSH 3.26 uIU/mL (0.27 -4.20) 03/12/21 13:00 Urine Color Dark yellow (Yel low) 03/12/21 13:36 Urine Appearance Clear (CLEAR) 03/12/21 13:36 Urine pH 5 (5-7) 03/12/21 13:36 Ur Specific Gravit y 1.015 (1.005-1.0 30) 03/12/21 13:36 Urine Protein Neg (Negative) 03/12/21 13:36 Urine Glucose (UA) Norm (Normal) 03/12/21 13:36 Urine Ketones Negative (Negati ve) 03/12/21 13:36 Urine Blood 2+ (Negative) H 03/12/21 13:36 Urine Nitrate Negative (Negati ve) 03/12/21 13:36 Urine Bilirubin 1+ (Negative) H 03/12/21 13:36 Urine Urobilinogen 8 mg/dL (Negative ) H 03/12/21 13:36 Ur Leukocyte Octavia ase Trace (Negative) H 03/12/21 13:36 Urine RBC 0-4 /hpf (0-2) H 03/12/21 13:36 Urine WBC 0-4 /hpf (0-5) H 03/12/21 13:36 Ur Squamous Epith Cells 0-4 /hpf (0-5) H 03/12/21 13:36 Amorphous Sediment Not Reportable 03/12/21 13:36 Urine Bacteria 1+ /hpf (NONE) H 03/12/21 13:36 Hyaline Casts 0-4 /lpf H 03/12/21 13:36 Ur Random Sodium 10 mmol/L 03/12/21 13:36 Ur Random Potassiu m 26 mmol/L 03/12/21 13:36 Ur Random Chloride 14 mmol/L 03/12/21 13:36 Fluid Color Yellow 03/12/21 17:04 Fluid Appearance Clear 03/12/21 17:04 Fluid Specific Gra v 1.010 03/12/21 17:04 Fluid pH 8.0 03/12/21 17:04 Fluid WBC 218 /uL 03/12/21 17:04 Fluid RBC 0 10^3/uL 03/12/21 17:04 Fld Polynuclear WB Cs # 0.074 03/12/21 17:04 Fld Polynuclear WB Cs % 34.000 % 03/12/21 17:04 Fl Mononucl WBCs # (Auto) 0.144 03/12/21 17:04 Fl Mononuclear % A uto 66.000 % 03/12/21 17:04 Fluid Glucose 105.0 mg/dL 03/12/21 17:04 Fluid Total Protei n 1.6 g/dL 03/12/21 17:04 Fluid Albumin 0.9 g/dL 03/12/21 17:04 Fluid LDH 545 U/L 03/12/21 17:04 Fluid Amylase 10 U/L 03/12/21 17:04 Fluid Alk Phosphat ase 86 IU/L 03/12/21 17:04 Fluid Cholesterol 40 mg/dL (0-200) 03/12/21 17:04 Fluid Triglyceride s 56 mg/dL (0-150) 03/12/21 17:04 Fluid Uric Acid 9 mg/dL 03/12/21 17:04 Impressions Chest X-Ray 03/12/21 12:36 Impression: Atherosclerosis. Abdomen/Pelvis CT 03/12/21 14:20 IMPRESSION: 1. Diffuse abdominal and pelvic ascites has developed since the prior examinations. 2. Innumerable metastatic lesions throughout both hepatic lobes appears slightly progressed compared to the prior examinations. 3. Splenomegaly with portal hypertension. 4. Small esophageal hiatal hernia. 5. Upper abdominal and gloria hepatis lymphadenopathy similar to previous. 6. No other significant interval changes. Paracentesis Ultrasound 03/12/21 15:35 IMPRESSION: Uncomplicated ultrasound-guided paracentesis. Removal of 5000 cc Vitals: Last Vital Signs Temp 97.3 F L 03/15/21 08:00 Pulse 92 03/15/21 08:12 Resp 18 03/15/21 08:08 BP 122/73 03/15/21 08:00 Pulse Ox 94 03/15/21 08:08 Discharge Plan Discharge Patient Disposition: Home Health Service Condition: Stable Prescriptions: New gabapentin 100 mg Capsule 100 mg PO TID@,, 30 Days Qty: 90 RF: 0 lorazepam 1 mg Tablet 0.5 mg PO TID@,, Qty: 15 RF: 0 spironolactone 25 mg Tablet 25 mg PO DAILY 30 Days Qty: 30 RF: 0 warfarin 4 mg tablet 4 mg PO DAILY Qty: 30 RF: 0 Continued ferrous sulfate 325 mg (65 mg iron) tablet 325 mg PO Q2D RF: 0 mirtazapine 15 mg tablet 15 mg PO DAILY@0900 RF: 0 nitroglycerin [Nitrostat] 0.4 mg tablet, sublingual 0.4 mg sublingual Q5M PRN (Reason: Chest Pain) RF: 0 oxybutynin chloride 10 mg tablet extended release 24hr 10 mg PO DAILY@0900 RF: 0 promethazine 50 mg tablet 50 mg PO Q12H RF: 0 verapamil 360 mg capsule,ext rel. pellets 24 hr 360 mg PO DAILY RF: 0 alendronate [Fosamax] 70 mg tablet 70 mg PO DAILY@0900 RF: 0 venlafaxine 150 mg capsule,extended release 24hr 150 mg PO DAILY@0900 RF: 0 ropinirole 0.5 mg tablet 0.5 mg PO DAILY@2100 RF: 0 albuterol sulfate [Ventolin HFA] 90 mcg/actuation HFA aerosol inhaler 1 puff inhalation DAILY PRN (Reason: Shortness Of Breath) RF: 0 budesonide-formoterol [Symbicort] 160-4.5 mcg/actuation HFA aerosol inhaler 1 puff INHALATION DAILY RF: 0 oxycodone-acetaminophen 5-325 mg tablet 1 tab PO QID PRN (Reason: Pain) RF: 0 potassium chloride 10 mEq tablet,ER particles/crystals 10 meq PO DAILY@899 RF: 0 pantoprazole 40 mg tablet,delayed release (DR/EC) 40 mg PO DAILY@899 RF: 0 Changed furosemide 40 mg tablet 40 mg PO BID Qty: 0 RF: 0 lorazepam 1 mg tablet 0.5 mg PO TID@ Qty: 0 RF: 0 Discontinued gabapentin 300 mg capsule 300 mg PO TID@ RF: 0 warfarin 6 mg tablet 3 mg PO DAILY@2099 RF: 0 warfarin 5 mg tablet 5 mg PO DAILY@2099 RF: 0 morphine 15 mg tablet extended release 15 mg PO BID@899,2099 RF: 0 Discharge Orders: Discharge Order (Routine); Ordered 03/15/21 Ordered By: Bora Parra Referrals: [facility] [Outside] Mckay Avery MD [Staff Physician] - 4-7 days Discharge Diet: Cardiac and Low Salt Discharge Activity: Resume usual activity Patient Instructions: Opioid Safety Activity Restrictions/Additional Instructions: You should be taking 4 mg of warfarin daily. He goal INR is 2.5-3.5. Please check INR every 3 days for next 1 week. Your INR has to be monitored with your primary care provider. Dose of warfarin should be further modified as per the INR results. Gabapentin has been decreased 200 mg 3 times daily. Lorazepam has been decreased to 0.5 mg 3 times a day. Morphine has been stopped. Continue taking Percocet as needed 4 times a day. You should be taking Lasix 40 mg 2 times a day along with spironolactone 25 mg 1 times a day. Please follow-up with Dr. Avery at earliest for management of cancer. Discharge Attestations Time Spent in Discharge Care*: greater than 30 min Specific Discharge Activities: educating patient, educating and/or supporting family/caregiver, discussing with pcp/other providers, discussing with director case/social workers/dc planners, documenting/other paperwork and evaluating patient/reviewing data Status at Discharge: Cognitive status at discharge: cognitively intact, Behavioral status at discharge: cooperative, Functional status at discharge: independent ambulation Overall status at discharge: patient is back to baseline Quality Metrics Clinical Quality Measures During this hospital stay, did patient experience: None Coding Level of Care Code Acute Chg FW DC note Diagnoses Altered mental status R41.82 Abdominal pain R10.9 Anasarca R60.1 Hyponatremia E87.1 Subtherapeutic international normalized ratio (INR) R79.1 H/O mitral valve replacement Z95.2 Metastasis to liver of unknown origin C78.7; C80.1
--- NOTE | 2021-03-15 13:28 | PC.SOCIAL ---
Pg 2 IMM Explained to pt Pg 2 IMM. No questions voiced. Provided pt a copy. Signed, dated, & timed a copy & placed in chart.
--- NOTE | 2021-03-21 14:22 | P.HP_ITS ---
Providers/Chief Complaint Admitting Physician: Horacio Acosta MD Chief Complaint: SOB, INCREASED SWELLING History of Present Illness 70 year old female with past medical history of mitral valve replacement on Coumadin, 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Upon arrival in the ER she was worked up for above mention complaint. Pertinent Imaging studies: Abdominal ultrasound Large amount of ascites. Xray chest : Clearing of bilateral atelectasis.Left upper lobe nodule. Pertinent Labs: WBC: 67054, H&H: 12.9/38.9, platelet count:99L PT/INR : 41/4.30, serum sodium:123, serum potassium: 4.6, BUN and serum creatinine: 31/0.7 , total bilirubin: 6.3, AST:142, ALT:57, ALP:556 , Albumin:2.1 Review of Systems General: Reports: ROS unobtainable due to mental status Medications/Allergies Home Medications Medication Instructions Recorded Confirmed Last Taken Type albuterol sulfate [Ventolin HFA] 2 puff INHALATION Q4H PRN 01/17/21 03/21/2109/30 History alendronate [Fosamax] 70 mg PO Q7D 01/17/21 03/21/21 03/12/21 History budesonide-formoterol [Symbicort] 2 puff INHALATION BID 01/17/21 03/21/21 03/12/21 History ropinirole 0.5 mg PO DAILY 01/17/21 03/21/21 03/11/21 History venlafaxine 300 mg PO DAILY 01/17/21 03/21/21 03/12/21 History verapamil 360 mg PO DAILY 01/17/21 03/21/21 02/17/21 History ferrous sulfate 325 mg (65 mg 325 mg PO EVERY OTHER DAY tab 02/17/21 03/21/21 02/17/21 History iron) tablet mirtazapine 15 mg tablet 15 mg PO BEDTIME 02/17/21 03/21/21 03/12/21 History nitroglycerin 0.4 mg sublingual 0.4 mg SUBLINGUAL Q5M PRN 02/17/21 03/21/21 Unknown History tablet oxybutynin chloride 10 mg 10 mg PO DAILY 02/17/21 03/21/21 03/12/21 History tablet,extended release 24 hr oxycodone-acetaminophen 1 tab PO QID PRN 02/17/21 03/21/21 03/12/21 History pantoprazole 40 mg PO DAILY 02/17/21 03/21/21 03/12/21 History potassium chloride 10 meq PO DAILY 02/17/21 03/21/21 03/12/21 History furosemide 40 mg PO BID #0 tab 03/15/21 03/21/21 03/12/21 Rx spironolactone 25 mg PO DAILY 30 Days #30 tab 03/15/21 03/21/21 Unknown Rx dexamethasone See Rx Instructions .ROUTE .COMPLEX 03/21/21 03/21/21 Unknown History docusate sodium [Colace] 100 mg PO DAILY 03/21/21 03/21/21 Unknown History gabapentin 100 mg PO TID 03/21/21 03/21/21 03/21/21 08:00 History lidocaine-prilocaine 1 applic TOPICAL . DIRECTED 03/21/21 03/21/21 Unknown History lorazepam 0.5 mg PO TID 03/21/21 03/21/21 03/21/21 10:00 History oxycodone 5 mg PO Q6H 03/21/21 03/21/21 Unknown History prochlorperazine maleate 10 mg PO Q4H PRN 03/21/21 03/21/21 Unknown History promethazine 25 mg PO BID PRN 03/21/21 03/21/21 Unknown History warfarin 4 mg PO DAILY 03/21/21 03/21/21 Unknown History Allergies Allergy/AdvReac Type Severity Reaction Status Date / Time aspirin Allergy Intermediate Unknown Verified 03/21/21 13:27 carbamazepine [From Tegretol] Allergy Intermediate Unknown Verified 03/21/21 13:27 venom-wasp Allergy Intermediate Unknown Verified 03/21/21 13:27 PFSH Acute PFSH: Medical History (Updated 03/21/21 @ 14:55 by Horacio Acosta MD) Anasarca Anemia COPD (chronic obstructive pulmonary disease) GERD (gastroesophageal reflux disease) Liver cancer Lung nodule Metastasis to liver of unknown origin Mitral valve disorder Osteoporosis Pulmonary embolism Subtherapeutic international normalized ratio (INR) Surgical History (Updated 03/21/21 @ 14:53 by Horacoi Acosta MD) H/O mitral valve replacement Takes Coumadin H/O tubal ligation Port-A-Cath in place (02/18/21) Social History (Updated 03/21/21 @ 11:16 by Mahin Self RN) Smoking and tobacco status: current every day smoker cigarettes Packs smoked per day: 2 Years cigarettes smoked: 58 Quit status (tobacco): considering quitting Second hand smoke exposure: Yes Smoking risk assessment/counseling performed?: Yes Alcohol intake: never Desire information about alcohol rehabilitation?: No Counseling given: No Desire information about substance/drug rehabilitation?: No Counseling given: No Lives independently: Yes Household members: none Marital status: Current occupational status: disabled History of recent travel: No Current gender identity: Female Vitals/I&O/Wt Last Vital Signs Temp 97.7 F 03/15/21 15:40 Pulse 106 H 03/15/21 15:40 Resp 17 03/15/21 15:40 BP 126/75 03/15/21 15:40 Pulse Ox 95 03/15/21 15:40 Physical Exam Narrative: EXAM NARRATIVE: Alert and awake HENMT: COMMON NORMALS: normocephalic and atraumatic HEAD & SCALP: normocephalic and atraumatic Chest: CHEST: Yes Symmetrical chest wall rise OTHER: Bilateral basal crackles present in both lung cordero Resp: COMMON NORMALS: normal respiratory effort, No retractions, No use of accessory muscles and clear to auscultation bilaterally EFFORT & INSPECTION: Yes symmetric chest movement AUSCULTATION: clear to auscultation bilaterally Cardio: COMMON NORMALS: regular rate, regular rhythm, S1 normal heart sound present, S2 normal heart sound present, No gallops present (Cardio), No murmurs present (Cardio), No rub (Cardio) and Peripheral pulses 2+ throughout RATE: regular rate RHYTHM: regular rhythm HEART SOUNDS: S1 normal heart sound present and S2 normal heart sound present PERIPHERAL PULSES: Peripheral pulses 2+ throughout OTHER: Metallic click present in mitral area. GI: AUSCULTATION: Yes normoactive bowel sounds OTHER: Tense abdominal distention, with fluid thrill's, nontender, normoactive bowel sounds Extremity: NARRATIVE EXTREMITY EXAM: 3+ bilateral lower extremity pitting edema present Neuro: COMMON NORMALS: patient oriented x3 Data : 03/15/21 07:07 03/15/21 07:07 A&P Assessment and plan (1) SIRS (systemic inflammatory response syndrome): SIRS rule out sepsis Patient met SIRS criteria: Leukocytosis tachycardia. Blood culture Lactic acid Procalcitonin Urinalysis urine culture Vancomycin Zosyn Status: Acute (2) Acute encephalopathy: Acute metabolic encephalopathy, multifactorial (hyponatremia, possible sepsis) Plan as 1 Status: Acute (3) Anasarca: Secondary to end-stage liver disease 2/2 metastatic adenocarcinoma to the liver. Albumin with IV Lasix. Status: Acute (4) Hyponatremia: Chronic hypervolemic hyponatremia. Fluid restriction. Continue IV diuresis. Monitor BMP Status: Acute (5) Ascites: Therapeutic tap once INR stabilizes. Status: Acute (6) Subtherapeutic international normalized ratio (INR): Supratherapeutic INR secondary to Coumadin use. Received vitamin K in the ER. Plan is to give 1 bag of FFP. Monitor PT/INR. Status: Acute (7) Metastasis to liver of unknown origin: Status: Acute (8) COPD (chronic obstructive pulmonary disease): Status: Acute (9) H/O mitral valve replacement: Status: Acute (10) Transaminitis: Status: Acute Additional A&P Information CODE STATUS: Full code DVT prophylaxis: Currently supratherapeutic INR Attestations Medical Necessity Statement*: Patient needs to be in hospital for management of, SIRS R/O sepsis, anasarca, metabolic encephalopathy. Anticipated length of s earn[place] greater than 2 midnights Coding Level of Care Code Acute Investigative Analyst for [facility] Fwd Diagnoses SIRS (systemic inflammatory response syndrome) R65.10 Acute encephalopathy G93.40 Anasarca R60.1 Hyponatremia E87.1 Ascites R18.8 Subtherapeutic international normalized ratio (INR) R79.1 Metastasis to liver of unknown origin C78.7; C80.1 COPD (chronic obstructive pulmonary disease) J44.9 H/O mitral valve replacement Z95.2 Transaminitis R74.01
== END 2021-03-15 15:00 | disposition home health service (06) | DRG 948 ==
LOC: ER 15:52 → MEDSURG 17:17
PROVIDERS: Admitting Provider Student in an Organized Health Care Education/Training Program; Emergency Provider Family Medicine; Visit Provider Student in an Organized Health Care Education/Training Program
DX: R60.1 Generalized edema (principal); C78.7 Secondary malignant neoplasm of liver and intrahepatic bile duct; E87.1 Hypo-osmolality and hyponatremia; R10.9 Unspecified abdominal pain; R41.82 Altered mental status, unspecified; T50.995A Adverse effect of other drugs, medicaments and biological substances, initial encounter; C80.1 Malignant (primary) neoplasm, unspecified; Z95.2 Presence of prosthetic heart valve; Z95.828 Presence of other vascular implants and grafts; K59.00 Constipation, unspecified; D64.9 Anemia, unspecified; J44.9 Chronic obstructive pulmonary disease, unspecified; K21.9 Gastro-esophageal reflux disease without esophagitis; M81.0 Age-related osteoporosis without current pathological fracture; Z86.718 Personal history of other venous thrombosis and embolism; F17.210 Nicotine dependence, cigarettes, uncomplicated; R79.1 Abnormal coagulation profile; Z79.51 Long term (current) use of inhaled steroids; Z79.891 Long term (current) use of opiate analgesic
CPT/HCPCS: 36415; 36591; 49083; 71045; 74177; 80053; 80500; 81001; 82042; 82140; 82150; 82436; 82465; 82550; 82945; 82977; 83540; 83550; 83615; 83690; 83735; 83880; 83986; 84075; 84100; 84133; 84145; 84157; 84300; 84315; 84443; 84478; 84484; 84560; 85025; 85610; 86140; 86403; 87015; 87040; 87070; 87075; 87116; 87205; 87206; 87449; 87641; 87801; 88112; 88305; 89050; 93005; 93306; 94640; 94664; 96372; 96374; 97161; 97165; 99285; J1650; J1940; J2543; J3535; Q9967

== ENCOUNTER 2021-03-21 10:57 | Inpatient (IN) | payer MEDICARE, MEDICAID, SELFPAY ==
[2021-03-21] VITALS (10 sets, daily range): BP systolic 108–137; BP diastolic 71–92; PULSE 62–114; RESP 17–19; TEMP 36.4–36.5; O2SAT 93–98; BMI 27.4
--- NOTE | 2021-03-21 11:15 | US_ITS ---
WS: [id number] Abdominal ultrasound, limited. History: Evaluate for ascites. Comparison: None. All 4 quadrants are imaged by ultrasound to evaluate for ascites. Large amount of ascites in all 4 qu adrants. US/US abdomen limited [id number] IMPRESSION: Large amount of ascites. Paracentesis will not be performed due to significantl y elevated INR value.
--- NOTE | 2021-03-21 11:16 | XR_ITS ---
WS: [id number] Portable AP upright chest, 03/21/2021 Clinical Data: dyspnea/cough Comparison: Portable chest, 03/12/2021. Findings: No effusions are seen. There is a left upper lobe nodule measuring 2.5 cm adjacent to the a ortic arch. The heart is normal. The pulmonary vascularity is not increased. No pneumonia or pneumoth orax is seen. The right diaphragm is elevated. The right Port-A-Cath remains in position. Midline jass rnotomy sutures and monitor leads are seen. The aortic arch and descending aorta shows calcification and tortuosity. XR/XR chest 1V portable [id number] Impression: 1. Left upper lobe nodule adjacent to aortic arch which was obscured on the terry or chest x-ray but noted on a PET scan. 2. Clearing of bilateral atelectasis compared to prior chest x-ray. 3. Atherosclerosis and elevation of the right diaphragm unchanged.
[2021-03-21 11:42] LABS: Positive C 1
[2021-03-21 11:44] LABS: Basophils # 0.1 10^3/uL (0.0-0.1); Eosinophils % 0.1 %; Lymphocytes # 1.2 10^3/uL (0.8-4.8); Nucleated Red Blood Cells % 0 %; Red Cell Distribution Width 18.9 % (12.1-15.1)
[2021-03-21 11:47] LABS: Partial Thromboplastin Time 51.7 SECONDS (23.9-36.7)
[2021-03-21 12:00] LABS: Basophils % 0.5 %; Hematocrit 38.9 % (37.0-47.0); Hemoglobin 12.9 g/dL (11.5-15.3); Mean Corpuscular HGB Conc 33.2 g/dL (30.0-36.0); Mean Corpuscular Hemoglobin 29.5 pg (28.0-34.0); Mean Corpuscular Volume 88.8 fL (81-99); Mean Platelet Volume 11.4 fL (7.4-10.4); Neutrophils # 14.27 10^3/uL (1.8-7.7); Neutrophils % 80.5 %; Platelet Count 99 10^3/cmm (130-400); Red Blood Count 4.38 10^6/uL (4.1-5.3); Slide Review Slide Review Perform; White Blood Count 17.7 10^3/uL (4.0-10.0)
[2021-03-21 12:06] LABS: Alanine Aminotransferase 57 U/L (0-33); Albumin Level 2.1 g/dL (3.5-5.2); Alkaline Phosphatase 556 IU/L (35-105); Anion Gap 17.6 (5-19); Aspartate Amino Transferase 142 U/L (0-32); Blood Urea Nitrogen 31 mg/dL (8-23); Calcium 7.7 mg/dL (8.5-10.5); Carbon Dioxide 24 mmol/L (22-29); Chloride 86 mmol/L (98-107); Globulin 3.1 g/dL (1.3-4.6); Glucose 57 mg/dL (65-115); Osmolality Calculated 260 mOsm/kg (285-295); Potassium 4.6 mmol/L (3.5-5.1); Sodium 123 mmol/L (136-145); Total Bilirubin 6.3 mg/dL (0.15-1.2); Total Protein 5.2 g/dL (6.6-8.7)
--- NOTE | 2021-03-21 12:06 | W.ED.ABDPA2 ---
HPI - Abdominal Pain General: Chief Complaint: Abdominal Pain Stated Complaint: ABDOMINAL PAIN AND DISTENTION Time Seen by Provider: 03/21/21 11:03 History of Present Illness: HPI narrative: 70-year-old female presents to the emergency room with complaints of abdominal swelling and bloating. She was recently hospitalized and had a paracentesis she has known history of lung CA with metastasis. She returns today With increased cabdominal pain and swelling and bloating. The worsening swelling and bloating causing some shortness of breath she is chronically on oxygen she is no longer being treated for her hospice services yet. MD elicited complaint: abdominal pain Pertinent past history: other (Lung CA) Onset (ago): day(s) Pain Consistency: constant Location: Diffuse (abdominal) Quality: aching Radiation: none Migration to: no migration Exacerbating factors: eating, vomiting and movement Relieving factors: rest Associated Symptoms: Reports anorexia, bloating and poor appetite; Denies belching, change in bowel habits, change in stool character, chills, coffee ground emesis, GI cramping, diarrhea, dyspepsia, dysuria, excessive flatus, fever(s), heartburn, hematochezia, hematuria, hematemesis, fecal incontinence, loose stools, melena, nausea, syncope and vomiting Review of Systems Const: Denies: fever(s) or chills ENMT: Denies: throat pain, ear or mastoid pain, nasal discharge or nasal congestion Card: Denies: syncope Resp: Denies: dyspnea, productive cough or non-productive cough GI: Reports: bloating; Denies: nausea, vomiting, hematemesis, coffee ground emesis, heartburn, diarrhea, GI cramping, belching, excessive flatus, fecal incontinence, change in bowel habits, change in stool character, hematochezia or melena : Denies: dysuria or hematuria Skin/Breast: Denies: rash or pruritus PFSH ED PFSH: Medical History Anasarca Anemia COPD (chronic obstructive pulmonary disease) GERD (gastroesophageal reflux disease) Liver cancer Lung nodule Metastasis to liver of unknown origin Mitral valve disorder Osteoporosis Pulmonary embolism Subtherapeutic international normalized ratio (INR) Surgical History H/O mitral valve replacement Takes Coumadin H/O tubal ligation Port-A-Cath in place (02/18/21) Social History Smoking and tobacco status: current every day smoker cigarettes Packs smoked per day: 2 Years cigarettes smoked: 58 Quit status (tobacco): considering quitting Second hand smoke exposure: Yes Smoking risk assessment/counseling performed?: Yes Alcohol intake: never Desire information about alcohol rehabilitation?: No Counseling given: No Desire information about substance/drug rehabilitation?: No Counseling given: No Lives independently: Yes Household members: none Marital status: Current occupational status: disabled History of recent travel: No Current gender identity: Female Physical Exam Const: COMMON NORMALS: no acute distress GENERAL APPEARANCE: cooperative and comfortable ORIENTATION/CONSCIOUSNESS: Yes awake, Yes oriented to person, Yes oriented to place and Yes oriented to time HENMT: COMMON NORMALS: normocephalic, atraumatic, hearing grossly normal bilaterally and external ears normal HEAD & SCALP: normocephalic and atraumatic EXTERNAL EAR: Yes external ears normal Neck/C-Spine: COMMON NORMALS: no JVD Resp: COMMON NORMALS: normal respiratory effort, No retractions, No use of accessory muscles and clear to auscultation bilaterally AUSCULTATION: clear to auscultation bilaterally Cardio: COMMON NORMALS: no JVD, regular rate, regular rhythm and No murmurs present (Cardio) RATE: regular rate RHYTHM: regular rhythm GI: INSPECTION: Yes abdominal distension AUSCULTATION: Yes Hypoactive bowel sounds present PALPATION: Yes Tenderness to palpation present (GI), No Guarding due to palpation present (GI) and Yes Ascites present Extremity: COMMON NORMALS: normal to inspection, capillary refill normal, no clubbing, cyanosis or edema, no calf tenderness and no pedal edema Neuro: SENSORIUM/ORIENTATION: Yes oriented to person, Yes oriented to place and Yes oriented to time Skin: COMMON NORMALS: no rashes or lesions noted GENERAL SKIN EXAM: no rashes or lesions noted Course Vital Signs: Vital signs: Vital Signs Temperature 97.6 F 03/22/21 12:00 Pulse Rate 145 H 03/22/21 12:00 Respiratory Rate 18 03/22/21 12:00 Blood Pressure 134/83 03/22/21 12:00 Pulse Oximetry 95 03/22/21 12:00 MDM - Abdominal Pain MDM Narrative: Medical decision making narrative: Admit for anticoagulation and ascites. She is also hyponatremic. Discussed with patient and family orders written Lab Data: Labs: Lab Results 03/21/21 03/21/21 03/21/21 Range/Units 11:27 11:27 11:27 WBC 17.7 H (4.0-10.0) 10^3/ uL RBC 4.38 (4.1-5.3) 10^6/u L Hgb 12.9 (11.5-15.3) g/dL Hct 38.9 (37.0-47.0) % MCV 88.8 (81-99) fL MCH 29.5 (28.0-34.0) pg MCHC 33.2 (30.0-36.0) g/dL RDW 18.9 H (12.1-15.1) % Plt Count 99 L (130-400) 10^3/c mm MPV 11.4 H (7.4-10.4) fL Neut % (Auto) 80.5 % Lymph % (Auto) 7.0 % [place] % (Auto) 11.0 % Eos % (Auto) 0.1 % Baso % (Auto) 0.5 % Neut # (Auto) 14.27 H (1.8-7.7) 10^3/u L Lymph # (Auto) 1.2 (0.8-4.8) 10^3/u L [place] # (Auto) 2.0 H (0.2-0.9) 10^3/u L Eos # (Auto) 0.0 (0.0-0.8) 10^3/u L Baso # (Auto) 0.1 (0.0-0.1) 10^3/u L Nucleated RBC % (a uto) 0 % Nucleated RBCs # 0.0 /100WBC PT 41.90 H (12.1-14.9) SECO NDS INR 4.30 H (0.8-1.2) APTT 51.7 H (23.9-36.7) SECO NDS Sodium 123 L (136-145) mmol/L Potassium 4.6 (3.5-5.1) mmol/L Chloride 86 L (98-107) mmol/L Carbon Dioxide 24 (22-29) mmol/L Anion Gap 17.6 (5-19) BUN 31 H (8-23) mg/dL Creatinine 0.7 (0.5-0.9) mg/dL GFR Calculation 83.0 L (90-130) mL/min Glucose 57 L (65-115) mg/dL Calculated Osmolal ity 260 L (285-295) mOsm/k g Calcium 7.7 L (8.5-10.5) mg/dL Total Bilirubin 6.3 H (0.15-1.2) mg/dL AST 142 H (0-32) U/L ALT 57 H (0-33) U/L Alkaline Phosphata se 556 H (35-105) IU/L Total Protein 5.2 L (6.6-8.7) g/dL Albumin 2.1 L (3.5-5.2) g/dL Globulin 3.1 (1.3-4.6) g/dL Discharge Plan Discharge Patient Disposition: Admitted As Inpatient Admit Provider: Horacio Acosta Clinical Impression: Hyponatremia, Anemia, Ascites, Pancreatic malignant neoplasm Condition: Stable Coding Level of Care Code 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
[2021-03-21] MEDS: phytonadione (ADULT) 10 mg/mL Ampule 1 mL PO (13:23)
--- NOTE | 2021-03-21 13:28 | PC.PHAR ---
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
[2021-03-21 15:26] LABS: Ammonia 21 umol/L (11-51); Lactate (Lactic Acid level) 3.1 mmol/L (0.5-2.2)
[2021-03-21 15:32] LABS: Procalcitonin 3.15 ng/mL (0-0.5)
[2021-03-21] MEDS: sodium chloride 0.9% 1,000 ML 100 ML IV (17:58)
[2021-03-21] MEDS: FUROsemide 10 mg/mL SDV 4mL 40 MG IVP (17:58)
[2021-03-21] MEDS: vancomycin 1,000 MG in sodium chloride 0.9% 250 ML 250 MG IV (18:13)
[2021-03-21] MEDS: sodium chloride 0.9% (100 ml) 100 ML (20:11)
[2021-03-21] MEDS: piperacillin-tazobactam 3.375 GM in sodium chloride 0.9% (plus) 50 ML IV (22:37)
[2021-03-22] VITALS (51 sets, daily range): BP systolic 90–148; BP diastolic 53–98; PULSE 67–156; RESP 10–32; TEMP 36.1–36.4; O2SAT 86–100
[2021-03-22 06:15] LABS: Basophils # 0.1 10^3/uL (0.0-0.1); Basophils % 0.4 %; Eosinophils % 0.1 %; Hematocrit 36.2 % (37.0-47.0); Lymphocytes # 0.8 10^3/uL (0.8-4.8); Lymphocytes % 6.4 %; Mean Corpuscular HGB Conc 33.1 g/dL (30.0-36.0); Mean Corpuscular Hemoglobin 29.7 pg (28.0-34.0); Mean Corpuscular Volume 89.6 fL (81-99); Mean Platelet Volume 11.3 fL (7.4-10.4); Monocytes # 1.3 10^3/uL (0.2-0.9); Monocytes % 10.1 %; Neutrophils # 10.83 10^3/uL (1.8-7.7); Nucleated Red Blood Cells % 0 %; Platelet Count 100 10^3/cmm (130-400); Red Blood Count 4.04 10^6/uL (4.1-5.3); Red Cell Distribution Width 18.7 % (12.1-15.1); White Blood Count 13.2 10^3/uL (4.0-10.0)
[2021-03-22] MEDS: FUROsemide 10 mg/mL SDV 4mL 40 MG IVP (06:15)
[2021-03-22] MEDS: vancomycin 1,000 MG in sodium chloride 0.9% 250 ML 250 MG IV ×2 (06:33→18:28)
[2021-03-22 06:46] LABS: Alanine Aminotransferase 46 U/L (0-33); Albumin Level 2.6 g/dL (3.5-5.2); Alkaline Phosphatase 487 IU/L (35-105); Anion Gap 23.1 (5-19); Aspartate Amino Transferase 107 U/L (0-32); Blood Urea Nitrogen 31 mg/dL (8-23); Calcium 7.6 mg/dL (8.5-10.5); Carbon Dioxide 22 mmol/L (22-29); Chloride 90 mmol/L (98-107); Globulin 2.5 g/dL (1.3-4.6); Glomerular Filtration Rate 99.1 mL/min (90-130); Glucose 53 mg/dL (65-115); Osmolality Calculated 276 mOsm/kg (285-295); Potassium 4.1 mmol/L (3.5-5.1); Sodium 131 mmol/L (136-145); Total Protein 5.1 g/dL (6.6-8.7)
[2021-03-22 07:08] LABS: Total Bilirubin 9.3 mg/dL (0.15-1.2)
--- NOTE | 2021-03-22 07:11 | PC.NURSE ---
Bedside report given to TRENT Bennett at this time.
[2021-03-22 07:41] LABS: INR 1.94 (0.8-1.2)
[2021-03-22] MEDS: piperacillin-tazobactam 3.375 GM in sodium chloride 0.9% (plus) 50 ML IV ×2 (07:54→15:53)
[2021-03-22] MEDS: docusate sodium 100 mg Capsule PO (07:59)
[2021-03-22] MEDS: pantoprazole DR 40 mg Tablet PO (07:59)
--- NOTE | 2021-03-22 10:03 | PC.NURSE ---
Danae Houserer [phone] states that she is the DPOA. She is the patient's daughter. She states patient is a full code at this time until she comes to talk with her tonight.
--- NOTE | 2021-03-22 11:24 | ECG_ITS ---
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 Measurements Intervals [place] Rate: 142 P: 246 DC: 153 QRS: 106 QRSD: 92 T: 180 QT: 203 QTc: 312 Interpretive Statements SINUS TACHYCARDIA, POSSIBLE ATRIAL FLUTTER MARKED RIGHT AXIS DEVIATION [QRS AXIS > 100] LOW QRS VOLTAGE IN EXTREMITY LEADS [QRS DEFLECTION < 0.5 mV IN LIMB LEADS] INCOMPLETE RIGHT BUNDLE BRANCH BLOCK [90+ ms QRS DURATION, TERMINAL R IN V1/V2, 40+ ms S IN I/aVL/V4/V5/V6] MODERATE ST DEPRESSION [0.05+ mV ST DEPRESSION] ABNORMAL QRS-T ANGLE [QRS-T AXIS DIFFERENCE > 60] Compared to ECG 03/12/2021 12:54:49 Right-axis deviation now present ST (T wave) deviation now present Sinus rhythm no longer present Indeterminate axis no longer present Myocardial infarct finding no longer present Electronically Signed On 03-22-2021 22:53:25 CDT by Maggie Melvin M.D. [id number]
--- NOTE | 2021-03-22 12:01 | PC.NURSE ---
Report to Thu NEWMAN in ICU at this time.
--- NOTE | 2021-03-22 12:13 | P.PN_ITS ---
Subjective Subjective: Interval history: Patient was seen and examined this morning, continues to be critically ill, patient went into A. fib with RVR, this morning and had to be moved to ICU. Vitals/I&O/Wt Last Vital Signs Temp 97.6 F 03/22/21 12:00 Pulse 145 H 03/22/21 12:00 Resp 18 03/22/21 12:00 BP 134/83 03/22/21 12:00 Pulse Ox 95 03/22/21 12:00 03/21/21 03/22/21 03/22/21 22:59 06:59 14:59 Intake Total 426.667 / 426.667 150 / 591.513 4082 / 1300 Output Total 300 / 300 Balance 426.667 / 426.667 150 / 335.301 7301 / 1000 Weight last 48 hrs Weight 77.111 kg Physical Exam Narrative: EXAM NARRATIVE: ALert,Awake and Oriented HENMT: COMMON NORMALS: normocephalic and atraumatic HEAD & SCALP: normocephalic and atraumatic Eye: OTHER: Sleral Icterus Prsent Chest: CHEST: Yes Symmetrical chest wall rise Resp: COMMON NORMALS: clear to auscultation bilaterally EFFORT & INSPECTION: Yes symmetric chest movement AUSCULTATION: clear to auscultation bilaterally Cardio: COMMON NORMALS: regular rate, regular rhythm, S1 normal heart sound present, S2 normal heart sound present, No gallops present (Cardio), No murmurs present (Cardio), No rub (Cardio) and Peripheral pulses 2+ throughout RATE: regular rate RHYTHM: regular rhythm HEART SOUNDS: S1 normal heart sound present and S2 normal heart sound present PERIPHERAL PULSES: Peripheral pulses 2+ throughout GI: COMMON NORMALS: Normal to inspection, nondistended, normoactive bowel sounds present, Soft to palpation, non-tender, No hepatosplenomegaly present and no masses AUSCULTATION: Yes normoactive bowel sounds PALPATION: Yes Soft to palpation and Yes No hepatosplenomegaly present RECTAL EXAM: deferred Extremity: COMMON NORMALS: no clubbing, cyanosis or edema and no pedal edema Urinary Catheter Management^: Parrish: Cath Placed During This Visit: yes Urinary Catheter Date of Insertion: 03/22/21 Urinary Catheter Time of Insertion: 11:45 Data : 03/22/21 05:55 03/22/21 05:55 Micro: Microbiology 03/21/21 14:55 Blood Culture - Preliminary Blood SPECIMEN COLLECTED 03/21/21 11:27 Blood Culture - Preliminary Blood SPECIMEN COLLECTED A&P Assessment and plan (1) Sepsis: Blood culture: NTD Lactic acid:3.1 Procalcitonin: 3.10 Urinalysis: urine culture Vancomycin Zosyn Status: Acute (2) Atrial fibrillation with RVR: Currently On Cardizem Drip. Has received Metoprolol as well as Digoxin. Status: Acute (3) Acute encephalopathy: Ac Metabolic Encephalopathy. Status: Acute (4) Pancreatic malignant neoplasm: Status: Acute (5) Ascites: S/P 5 L s Serous ascitic fluid removed. Recurrent ascites in the setting of end-stage liver disease. Continue albumin. Status: Acute (6) Transaminitis: Secondary to end-stage liver disease Status: Acute (7) Hyponatremia: Hypervolemic hyponatremia. Improving Monitor BMP Status: Acute (8) H/O mitral valve replacement: On Coumadin at home. Continue therapeutic Lovenox for now Status: Acute (9) Subtherapeutic international normalized ratio (INR): Status: Acute (10) Anasarca: Status: Acute (11) Anemia: Status: Acute (12) Metastasis to liver of unknown origin: Status: Acute (13) COPD (chronic obstructive pulmonary disease): Status: Acute Additional A&P Information Code Status:Full code DVT PPX:On Lovenox Attestations Medical Necessity Statement*: Patient needs to be in hospital for management of sepsis. Coding Level of Care Code Acute Business Attorney for [facility] Fw Diagnoses Sepsis A41.9 Atrial fibrillation with RVR I48.91 Acute encephalopathy G93.40 Pancreatic malignant neoplasm C25.9 Ascites R18.8 Transaminitis R74.01 Hyponatremia E87.1 H/O mitral valve replacement Z95.2 Subtherapeutic international normalized ratio (INR) R79.1 Anasarca R60.1 Anemia D64.9 Metastasis to liver of unknown origin C78.7; C80.1 COPD (chronic obstructive pulmonary disease) J44.9
--- NOTE | 2021-03-22 12:23 | PC.NURSE ---
Called Danae patient's daughter and updated her about moving patient to the ICU 12. Danae plans to visit her later christen.
[2021-03-22] MEDS: sodium chloride 0.9% 1,000 ML 30 ML IV (13:02)
--- NOTE | 2021-03-22 14:44 | P.PCN_ITS ---
Acute Procedures Paracentesis: Time out performed: Yes Indication: Ascites Procedure: therapeutic paracentesis Location: RLQ Local anesthetic used: lidocaine 2% Bedside ultrasound used: yes, Ascites confirmed and location marked and yes, real-time guidance Preparation: sterile prep and drape and 11 blade used to make francisca in skin Fluid: clear Post procedure exam: awake, alert and normal BP Patient tolerated procedure: well and no complications Com plications: none
[2021-03-22] MEDS: sodium chloride 0.9% 500 ML 999 ML IV (16:45)
[2021-03-22] MEDS: digoxin 250 mcg/ml INJ 2 mL IVP (17:13)
[2021-03-22] MEDS: enoxaparin 80 mg/0.8 mL Syringe 75 MG SUBCUT (18:29)
[2021-03-22] MEDS: metoprolol tartrate 1 mg/1 mL SDV 5 mL 5 MG IV ×2 (18:35→20:29)
[2021-03-22 19:45] LABS: Glucose Point of Care 57 mg/dL (70-110)
[2021-03-22] MEDS: dextrose 50% syringe 50 mL 25 ML IVP (20:06)
[2021-03-22] MEDS: dextrose 5%-sod chloride 0.9% 1,000 ML 75 ML IV (20:06)
[2021-03-22] MEDS: metoprolol tartrate 25 mg Tablet PO (20:07)
[2021-03-23] VITALS (38 sets, daily range): BP systolic 87–153; BP diastolic 55–92; PULSE 72–140; RESP 12–33; TEMP 36.5–36.7; O2SAT 83–100
[2021-03-23] MEDS: piperacillin-tazobactam 3.375 GM in sodium chloride 0.9% (plus) 50 ML IV ×3 (00:52→16:07)
[2021-03-23] MEDS: metoprolol tartrate 1 mg/1 mL SDV 5 mL 5 MG IV (00:52)
[2021-03-23] MEDS: digoxin 250 mcg/ml INJ 2 mL IVP ×2 (02:39→09:44)
--- NOTE | 2021-03-23 05:40 | PC.NURSE ---
Shift summary patient arrived from [facility] yesterday from having SVT and was placed on a cardizem drip, with iv push metoprolol, digoxin and cardizem she converted to sinus at 0345 in the morning, she has had multiple episodes of vtach that resolved after a few beats and she had a few pauses during the time she was trying to convert. She is confused to time but knows she is in the hospital, has been pretty sleepy throughout the night but has been doing all right on her vital signs. She has had great urine output. checked her blood glucose and it was 57 so gave her D50 and placed her on a D5 drip to help with her blood sugars.
[2021-03-23 05:46] LABS: Vancomycin Trough 18.8 ug/mL (10-15)
[2021-03-23 05:58] LABS: Magnesium 1.9 mg/dL (1.7-2.3)
[2021-03-23 06:04] LABS: Basophils % 0.3 %; Eosinophils % 0.1 %; Lymphocytes # 0.7 10^3/uL (0.8-4.8); Lymphocytes % 6.8 %; Mean Corpuscular HGB Conc 32.4 g/dL (30.0-36.0); Mean Corpuscular Volume 92.6 fL (81-99); Mean Platelet Volume 11.5 fL (7.4-10.4); Monocytes % 9.5 %; Neutrophils # 8.74 10^3/uL (1.8-7.7); Neutrophils % 82.7 %; Nucleated Red Blood Cells % 0 %; Platelet Count 87 10^3/cmm (130-400); Red Blood Count 3.67 10^6/uL (4.1-5.3); Red Cell Distribution Width 19.2 % (12.1-15.1); White Blood Count 10.6 10^3/uL (4.0-10.0)
[2021-03-23 06:12] LABS: Alanine Aminotransferase 34 U/L (0-33); Albumin Level 3.2 g/dL (3.5-5.2); Alkaline Phosphatase 355 IU/L (35-105); Anion Gap 18.6 (5-19); Aspartate Amino Transferase 94 U/L (0-32); Blood Urea Nitrogen 22 mg/dL (8-23); Calcium 7.6 mg/dL (8.5-10.5); Carbon Dioxide 22 mmol/L (22-29); Chloride 93 mmol/L (98-107); Glomerular Filtration Rate 158.3 mL/min (90-130); Glucose 91 mg/dL (65-115); Osmolality Calculated 275 mOsm/kg (285-295); Sodium 131 mmol/L (136-145); Total Protein 4.2 g/dL (6.6-8.7)
[2021-03-23] MEDS: vancomycin 1,000 MG in sodium chloride 0.9% 250 ML 250 MG IV ×2 (06:14→18:28)
[2021-03-23] MEDS: enoxaparin 80 mg/0.8 mL Syringe 75 MG SUBCUT ×2 (06:14→17:48)
[2021-03-23 06:16] LABS: Potassium 2.6 mmol/L (3.5-5.1)
[2021-03-23 06:17] LABS: Total Bilirubin 8.3 mg/dL (0.15-1.2)
[2021-03-23 06:33] LABS: INR 1.77 (0.8-1.2)
[2021-03-23] MEDS: lidocaine 1% 5 ML in potassium chloride premix 100 ML 25 ML IV ×2 (07:24→11:36)
[2021-03-23] MEDS: metoprolol tartrate 25 mg Tablet PO (08:24)
[2021-03-23] MEDS: docusate sodium 100 mg Capsule PO (08:24)
[2021-03-23] MEDS: pantoprazole DR 40 mg Tablet PO (08:25)
[2021-03-23] MEDS: dilTIAZem 30 mg Tablet PO ×3 (09:42→17:48)
[2021-03-23] MEDS: FUROsemide 40 mg Tablet PO ×2 (09:42→16:07)
--- NOTE | 2021-03-23 12:44 | P.PN_ITS ---
Subjective Subjective: Interval history: Patient was seen and examined this morning, continues to be critically ill, overnight she has continued to be in A. fib with RVR, with few runs of nonsustained VT. serum potassium was found to be 2.6. I.V Potassium replacement was undertaken. Patient does communicate and has denied any pain,sob.Continue to have poor oral intake, ensure was added to her diet regimen. Vitals/I&O/Wt Last Vital Signs Temp 97.7 F 03/23/21 07:00 Pulse 130 H 03/23/21 10:00 Resp 18 03/23/21 10:00 BP 108/71 03/23/21 10:00 Pulse Ox 99 03/23/21 10:00 03/22/21 03/23/21 03/23/21 22:59 06:59 14:59 Intake Total 1090.75 / 2502.00 268 / 2770.00 525 / 525 Output Total 5825 / 6125 1300 / 7425 Balance -4734.25 / -3623.00 -1032 / -4655.00 525 / 525 Physical Exam Narrative: EXAM NARRATIVE: ALert,Awake and Oriented HENMT: COMMON NORMALS: normocephalic and atraumatic HEAD & SCALP: normocephalic and atraumatic Eye: OTHER: Sleral Icterus Prsent Chest: CHEST: Yes Symmetrical chest wall rise Resp: COMMON NORMALS: clear to auscultation bilaterally EFFORT & INSPECTION: Yes symmetric chest movement AUSCULTATION: clear to auscultation bilaterally Cardio: COMMON NORMALS: regular rate, regular rhythm, S1 normal heart sound present, S2 normal heart sound present, No gallops present (Cardio), No murmurs present (Cardio), No rub (Cardio) and Peripheral pulses 2+ throughout RATE: regular rate RHYTHM: regular rhythm HEART SOUNDS: S1 normal heart sound present and S2 normal heart sound present PERIPHERAL PULSES: Peripheral pulses 2+ throughout GI: COMMON NORMALS: Normal to inspection, nondistended, normoactive bowel soun ds present, Soft to palpation, non-tender, No hepatosplenomegaly present and no masses AUSCULTATION: Yes normoactive bowel sounds PALPATION: Yes Soft to palpation and Yes No hepatosplenomegaly present RECTAL EXAM: deferred Extremity: COMMON NORMALS: no clubbing, cyanosis or edema and no pedal edema Urinary Catheter Management^: Parrish: Cath Placed During This Visit: yes Reason for Continuing Indwelling Catheter: Accurate Measurement of Urinary Output in Critically Ill Patients Urinary Catheter Date of Insertion: 03/22/21 Urinary Catheter Time of Insertion: 11:45 Data : 03/23/21 05:06 03/23/21 14:59 Micro: Microbiology 03/21/21 14:55 Blood Culture - Preliminary Blood NEGATIVE TO DATE 03/21/21 11:27 Blood Culture - Preliminary Blood NEGATIVE TO DATE A&P Assessment and plan (1) Sepsis: WBC is trending down: Currently patient has remained afebrile, has maintained a fairly decent MAP. Has continued to saturate well on minimal supplemental oxygen requirement. Blood culture: NTD Lactic acid:3.1 Procalcitonin: 3.10 Urinalysis: urine culture Vancomycin Zosyn Status: Acute (2) Atrial fibrillation with RVR: New Onset A.Fib: Recent 2D Echo: Normal left ventricular cavity size and systolic function. Mildly increased left ventricular wall thickness. Mild concentric left ventricular hypertrophy. Left ventricular ejection fraction is estimated at 55 %. 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 Currently On Cardizem Drip. Have received 750 mcg of loading dose of digoxin, she has been started on 125 mcg p.o. daily maintenance dose of digoxin. Cardizem 60 mg p.o. every 6H daily Metoprolol 5 mg IV every 4 hours daily PRN On therapeutic Lovenox Monitor Serum Digoxin Level. Status: Acute (3) Acute encephalopathy: Ac Metabolic Encephalopathy Status: Acute (4) Ascites: S/P 5 L s Serous ascitic fluid removed. Recurrent ascites in the setting of end-stage liver disease. Lasix 40 mg po BID Continue albumin. Status: Acute (5) Anasarca: Status: Acute (6) Hyponatremia: Hypervolemic hyponatremia. Improving Monitor BMP Status: Acute (7) Transaminitis: Secondary to end-stage liver disease:Slight Improvement Status: Acute (8) Subtherapeutic international normalized ratio (INR): S/P Vitamin K as well as 1 Bag FFP. Status: Acute (9) H/O mitral valve replacement: On Coumadin at home. Currently on therapeutic Lovenox for now. warfarin 4 mg po daily Monitor INR Status: Acute (10) Pancreatic malignant neoplasm: Status: Acute (11) Anemia: Status: Acute (12) Metastasis to liver of unknown origin: Status: Acute (13) COPD (chronic obstructive pulmonary disease): Status: Acute (14) Hypokalemia: Status: Acute Additional A&P Information Code Status:Full code DVT PPX:On Lovenox Attestations Medical Necessity Statement*: Patient needs to be in hospital for the management of sepsis,anasarca. Coding Level of Care Code Acute Supervisor Multifocal Lens for g Fwd Exam Detailed Diagnoses Sepsis A41.9 Atrial fibrillation with RVR I48.91 Acute encephalopathy G93.40 Ascites R18.8 Anasarca R60.1 Hyponatremia E87.1 Transaminitis R74.01 Subtherapeutic international normalized ratio (INR) R79.1 H/O mitral valve replacement Z95.2 Pancreatic malignant neoplasm C25.9 Anemia D64.9 Metastasis to liver of unknown origin C78.7; C80.1 COPD (chronic obstructive pulmonary disease) J44.9 Hypokalemia E87.6
[2021-03-23] MEDS: potassium chloride oral liq 20 mEq/15 mL UDC 40 MEQ PO (13:25)
[2021-03-23 16:04] LABS: Anion Gap 16.3 (5-19); Blood Urea Nitrogen 19 mg/dL (8-23); Calcium 8.2 mg/dL (8.5-10.5); Carbon Dioxide 25 mmol/L (22-29); Chloride 94 mmol/L (98-107); Glomerular Filtration Rate 158.3 mL/min (90-130); Glucose 141 mg/dL (65-115); Osmolality Calculated 279 mOsm/kg (285-295); Potassium 3.3 mmol/L (3.5-5.1); Sodium 132 mmol/L (136-145)
[2021-03-23] MEDS: dextrose 5%-sod chloride 0.9% 1,000 ML 75 ML IV (16:08)
[2021-03-23 19:40] LABS: Add Urine Microscopic? NO; Charge for UA Resulting for Rev
[2021-03-23 19:48] LABS: Bilirubin Urine Neg (Negative); Blood Urine Neg (Negative); Glucose Urine UA Norm (Normal); Ketones Urine Negative (Negative); Leukocyte Esterase Urine Negative (Negative); Nitrate Urine Negative (Negative); Protein Urine Neg (Negative); Specific Gravity, Urine 1.015 (1.005-1.030); Urine Appearance Clear (CLEAR); Urine Color Yellow (Yellow); Urobilinogen Urine Norm (Negative); pH Urine 5 (5-7)
[2021-03-23] MEDS: warfarin 4 mg Tablet PO (20:36)
[2021-03-23] MEDS: LORazepam 2 mg/mL INJ 1 mL IVP (21:07)
[2021-03-23] MEDS: dilTIAZem 60 mg Tablet PO (21:08)
[2021-03-24] VITALS (31 sets, daily range): BP systolic 100–136; BP diastolic 54–99; PULSE 78–155; RESP 13–24; TEMP 36.4–37.1; O2SAT 86–98
[2021-03-24] MEDS: piperacillin-tazobactam 3.375 GM in sodium chloride 0.9% (plus) 50 ML IV ×3 (00:57→15:08)
[2021-03-24] MEDS: morphine 4 mg/mL SDV 1 mL 2 MG IVP ×2 (01:30→20:18)
[2021-03-24] MEDS: dextrose 5%-sod chloride 0.9% 1,000 ML 75 ML IV (04:35)
[2021-03-24] MEDS: dilTIAZem 60 mg Tablet PO ×3 (04:35→15:08)
[2021-03-24] MEDS: enoxaparin 80 mg/0.8 mL Syringe 75 MG SUBCUT (05:22)
[2021-03-24] MEDS: vancomycin 1,000 MG in sodium chloride 0.9% 250 ML 250 MG IV (05:23)
[2021-03-24 05:57] LABS: Basophils % 0.3 %; Eosinophils % 0.1 %; Hematocrit 31.5 % (37.0-47.0); Hemoglobin 10.1 g/dL (11.5-15.3); Lymphocytes % 7.8 %; Mean Corpuscular HGB Conc 32.1 g/dL (30.0-36.0); Mean Corpuscular Hemoglobin 30.1 pg (28.0-34.0); Mean Platelet Volume 10.6 fL (7.4-10.4); Monocytes # 1.1 10^3/uL (0.2-0.9); Monocytes % 8.4 %; Neutrophils # 11.01 10^3/uL (1.8-7.7); Neutrophils % 82.9 %; Nucleated Red Blood Cells % 0 %; Platelet Count 73 10^3/cmm (130-400); Red Blood Count 3.35 10^6/uL (4.1-5.3); Red Cell Distribution Width 19.5 % (12.1-15.1); White Blood Count 13.3 10^3/uL (4.0-10.0)
--- NOTE | 2021-03-24 06:00 | XRR_ITS ---
PROCEDURE INFORMATION: Exam: XR Chest Exam date and time: 03/24/2021 6:00 AM Age: 70 years old Clinical indication: Dyspnea; Additional info: SOB TECHNIQUE: Imaging protocol: XR of the chest. Views: 1 view. COMPARISON: CR XR chest 1V portable [id number] 03/21/2021 11:25 AM FINDINGS: Tubes, catheters and devices: A MediPort catheter is placed via the right internal jugular vein with its tip at the level of the superior vena cava. EKG leads overlie the chest. Lungs: There are linear opacities superimposed over the hemidiaphragms bilaterally likely representing atelectasis. These appear similar to those present on 03/21/2021. The pulmonary nodularity seen on is likely hidden by the aortic knob in this patient is slightly rotated to the left. Pleural spaces: Unremarkable. No pleural effusion. No pneumothorax. Heart/Mediastinum: Unremarkable. No cardiomegaly. Bones/joints: Unremarkable. XR/XR chest 1V portable [id number] IMPRESSION: 1. Linear opacities seen in the lower hemithoraces bilaterally likely represents atelectasis versus parenchymal scarring. 2. Otherwise stable appearance of the chest compared with 03/21/2021. 3. The previously noted left upper lobe pulmonary nodularity is likely behind the aortic knob in this patient is rotated slightly to the left.
[2021-03-24] MEDS: metoprolol tartrate 1 mg/1 mL SDV 5 mL 5 MG IV (06:02)
[2021-03-24 06:31] LABS: Lactate (Lactic Acid level) 4.5 mmol/L (0.5-2.2)
[2021-03-24 06:35] LABS: Procalcitonin 1.62 ng/mL (0-0.5)
[2021-03-24 06:40] LABS: INR 1.75 (0.8-1.2)
[2021-03-24 06:50] LABS: Alanine Aminotransferase 35 U/L (0-33); Albumin Level 3.6 g/dL (3.5-5.2); Alkaline Phosphatase 343 IU/L (35-105); Anion Gap 17.3 (5-19); Aspartate Amino Transferase 83 U/L (0-32); Blood Urea Nitrogen 13 mg/dL (8-23); Calcium 7.6 mg/dL (8.5-10.5); Carbon Dioxide 24 mmol/L (22-29); Chloride 98 mmol/L (98-107); Digoxin 0.8 ng/mL (0.6-1.2); Globulin 1.2 g/dL (1.3-4.6); Glomerular Filtration Rate 158.3 mL/min (90-130); Glucose 145 mg/dL (65-115); Osmolality Calculated 287 mOsm/kg (285-295); Sodium 137 mmol/L (136-145); Total Protein 4.8 g/dL (6.6-8.7)
[2021-03-24 06:52] LABS: Potassium 2.3 mmol/L (3.5-5.1)
--- NOTE | 2021-03-24 07:29 | PC.NURSE ---
Shift Summary Patient is alert and oriented to self only, she cannot state the day or where she is at. Patient is slightly confused and needs frequent reminders to not pull her cords and IVs out. The right chest port has D5% with NS infusing at 50 mls/hr along with Cardizem at 10 mls/hr. Left wrist IV site is saline locked at this time. Patient had two moderate, liquid bowel movements all night and 2100 mls out of clear dark yellow urine. Patient had one report of pain and received PRN Morphine 2 mg IVP. Patient was also given PRN Metoprolol 5 mg for her a-fib. Patients abdomen is round, distended, and firm. No edema or skin issues are noted at this time. Also on 2L NC.
[2021-03-24 07:37] LABS: Magnesium 1.5 mg/dL (1.7-2.3)
[2021-03-24] MEDS: potassium chloride oral liq 20 mEq/15 mL UDC 40 MEQ PO ×2 (09:05→10:07)
[2021-03-24] MEDS: FUROsemide 40 mg Tablet PO (09:10)
--- NOTE | 2021-03-24 09:19 | CT_ITS ---
WS: [id number] CT ABDOMEN PELVIS TECHNIQUE: Noncontrast CT of the abdomen and pelvis with coronal and sagittal reformatted images. CLINICAL INFORMATION: liver mets, ascitis, diarrhea COMPARISON: None. DLP: 1757.[address] scans at [facility] use at least one of these dose optimization techniques: automat ed exposure control; mA and/or kV adjustment per patient size (includes targeted exams where dose is matched to clinical indication); or iterative reconstruction. FINDINGS: Diffuse hepatic metastatic disease unchanged since the prior CT. Moderate abdominal and pelvic ascite s. Perihepatic and perisplenic ascites. Splenomegaly. Prior sternotomy. Tiny left pleural effusion. S mall esophageal hiatal hernia. Normal caliber abdominal aorta. No hydronephrosis in either kidney. Bi lateral renal cortical atrophy. Noncontrast pancreas is normal. No evidence of high-grade small or large bowel obstruction. Air distended sigmoid colon. Parrish cathet er. Upper abdominal and gloria hepatis lymphadenopathy unchanged. Adrenal Glands are normal. Grade 1 a nterolisthesis L4 on L5. Diffuse body wall anasarca. CT/CT abdomen pelvis wo con [id number] IMPRESSION: 1. No evidence of high-grade small or large bowel obstruction. Normal noncontr ast sigmoid colon. 2. Diffuse body wall anasarca with moderate abdominal and pelvic ascites simil ar to previous. 3. Hepatomegaly and splenomegaly with diffuse hepatic metastasis unchanged. 4. Tiny left pleural effusion. 5. Small esophageal hiatal hernia. 6. No other significant changes from previous.
--- NOTE | 2021-03-24 09:36 | PM.PN ---
Subjective Subjective: Interval history: Patient seen multiple times during the day. Hospital course, labs appreciated. Examination patient in bed, confused, mildly distressed because of abdominal pain and difficulty in breathing, with heart rate ranging from 110 to 130 bpm on Cardizem drip 10 with mean arterial pressure pressure of 68 with documented urine output of from 3 L in last 24 hours saturating 92% on 2 L oxygen supplementation. Patient has remained afebrile. Vitals/I&O/Wt Last Vital Signs Temp 97.6 F 03/24/21 04:00 Pulse 78 03/24/21 06:00 Resp 14 03/24/21 06:00 BP 128/75 03/24/21 06:00 Pulse Ox 95 03/24/21 06:00 03/23/21 03/24/21 03/24/21 22:59 06:59 14:59 Intake Total 1461.25 / 3086.25 1938.75 / 5025.00 Output Total 1000 / 1000 2100 / 3100 Balance 461.25 / 2086.25 -161.25 / 1925.00 Physical Exam Narrative: EXAM NARRATIVE: General: In mild distress because of abdominal pain, difficulty breathing, on 2 L oxygen supplementation, AO x2-3, drowsy HEENT: PERRLA, pupils bilaterally equal and reactive Chest: Normal vesicular breath sounds, no added sounds, equal good air entry bilaterally CVS: S1-S2 regular, no murmurs, no tachycardia, no gallops, no rubs Abdomen: Soft, nontender, no organomegaly, bowel sounds present Neuro: No focal deficits, no facial deformity, AO x3, power 5/5 in all limbs Urinary Catheter Management^: Parrish: Cath Placed During This Visit: yes Reason for Continuing Indwelling Catheter: Accurate Measurement of Urinary Output in Critically Ill Patients Urinary Catheter Date of Insertion: 03/22/21 Urinary Catheter Time of Insertion: 11:45 Data : 03/24/21 05:47 03/24/21 05:47 Micro: Microbiology 03/23/21 23:13 C.difficile Toxin B Gene (PCR) - Final Stool - Stool Aspirate A&P Assessment and plan (1) Sepsis: WBC is trending down: Currently patient has remained afebrile, has maintained a fairly decent MAP. Has continued to saturate well on minimal supplemental oxygen requirement. Blood culture: NTD Lactic acid:3.1 Procalcitonin: 3.10 Urinalysis: urine culture Vancomycin Zosyn Status: Acute (2) Atrial fibrillation with RVR: New Onset A.Fib: Recent 2D Echo: Normal left ventricular cavity size and systolic function. Mildly increased left ventricular wall thickness. Mild concentric left ventricular hypertrophy. Left ventricular ejection fraction is estimated at 55 %. 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 Currently On Cardizem Drip. Have received 750 mcg of loading dose of digoxin, she has been started on 125 mcg p.o. daily maintenance dose of digoxin. Cardizem 60 mg p.o. every 6H daily Metoprolol 5 mg IV every 4 hours daily PRN On therapeutic Lovenox Monitor Serum Digoxin Level. Status: Acute (3) Acute encephalopathy: Ac Metabolic Encephalopathy Status: Acute (4) Ascites: S/P 5 L s Serous ascitic fluid removed. Recurrent ascites in the setting of end-stage liver disease. Lasix 40 mg po BID Continue albumin. Status: Acute (5) Anasarca: Status: Acute (6) Hyponatremia: Hypervolemic hyponatremia. Improving Monitor BMP Status: Acute (7) Transaminitis: Secondary to end-stage liver disease:Slight Improvement Status: Acute (8) Subtherapeutic international normalized ratio (INR): S/P Vitamin K as well as 1 Bag FFP. Status: Acute (9) H/O mitral valve replacement: On Coumadin at home. Currently on therapeutic Lovenox for now. warfarin 4 mg po daily Monitor INR Status: Acute (10) Pancreatic malignant neoplasm: Status: Acute (11) Anemia: Status: Acute (12) Metastasis to liver of unknown origin: Status: Acute (13) COPD (chronic obstructive pulmonary disease): Status: Acute (14) Hypokalemia: Status: Acute Additional A&P Information Had a goals of care discussion with patient's daughter and Mr. Nichole at bedside. 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 We discussed that patient has reaccumulated ascites fluid less than 2 weeks and would most likely require further paracentesis or even a pigtail placement. We also discussed unfortunately given the baseline medical comorbidities including history of mitral valve replacement, difficulty to obtain therapeutic INR, advanced carcinoma patient is at high risk of adverse events including cardiorespiratory arrest as well. We also discussed that unfortunately at this time patient would need further paracentesis versus pigtail placement and palliative chemotherapy which would mean that patient would probably reaccumulate fluid but at a lower speed. Patient's family had a question that would this mean that patient would be comfortable and not in pain anymore to which they were explained that palliative therapy would mean to make sure that the cancer does not aggressively spread further but along with that she would be treated for other problems as well. Given all the discussion above patient family decided that at this point they would want patient to be comfortable, pain-free and would not want any aggressive treatment at present. They want patient to be hospice goals of care. CODE STATUS was changed to comfort measures only. Case management has been alerted. Ativan, Dilaudid 0.5 as needed for pain and air hunger. Scopolamine. Stop further blood work. Stop Zosyn, Cardizem drip. Continue other oral therapies. Attestations Medical Necessity Statement*: Patient requires further hospitalization while safe and comfortable discharge planning is sought in view of hospice/comfort measures goals of care for sepsis, advanced metastasis to liver, history of mitral valve replacement. Critical Care Time: The high probability of a clinically significant, sudden or life threatening deterioration of the patient's [cardiac, GI, pulmonary, goals of care discussion with family] system(s) required my full and direct attention, intervention and personal management. The critical care time is as shown. This time is in addition to time spent performing any reported procedures but includes the following: [x] Data and vital sign review and interpretation [x] Patient assessment, examination and intervention [x] Documentation [x] Medication orders and management Critical Care Time (min): 80 Coding Level of Care Code Acute Continuous [employer] Supervisor for g Fwd Diagnoses Sepsis A41.9 Atrial fibrillation with RVR I48.91 Acute encephalopathy G93.40 Ascites R18.8 Anasarca R60.1 Hyponatremia E87.1 Transaminitis R74.01 Subtherapeutic international normalized ratio (INR) R79.1 H/O mitral valve replacement Z95.2 Pancreatic malignant neoplasm C25.9 Anemia D64.9 Metastasis to liver of unknown origin C78.7; C80.1 COPD (chronic obstructive pulmonary disease) J44.9 Hypokalemia E87.6
--- NOTE | 2021-03-24 10:00 | PC.NURSE ---
Medication delays this am due to Physician rounding and changing medications, CT scan and IV access needed for incompatible meds.
[2021-03-24] MEDS: oxyCODONE-APAP 5-325 mg Tablet 1 TAB PO ×2 (10:05→19:29)
[2021-03-24] MEDS: venlafaxine ER (24HR) 150 mg Capsule PO (10:06)
[2021-03-24] MEDS: spironolactone 25 mg Tablet PO (10:07)
[2021-03-24] MEDS: famotidine 20 mg/2 mL INJ IVP ×2 (10:08→20:13)
[2021-03-24 10:23] LABS: Blood Gas Allen Test Pos; Blood Gas Operator Identificat CAK; Blood Gas Sample Site Radial, right; Blood Gas Sample Type Arterial; Ionized Calcium Level - ABG 1.1 mmol/L (1.1-1.4); Methemoglobin 0.9 % (0.4-1.5)
[2021-03-24] MEDS: magnesium sulfate premix 2 GM/50 ML PIGGYBACK IV (10:23)
[2021-03-24] MEDS: lidocaine 1% 5 ML in potassium chloride premix 100 ML 25 ML IV (10:33)
[2021-03-24 10:36] LABS: ABG PCO2 41.5 mmHg (35-45); Arterial Blood Gas Hematocrit 35.9 % (37-47); HCO3 ABG 27.6 mmol/L (22-26); Oxygen Device NC; Oxygen Saturation ABG 70.8; PO2 ABG 37.9 mmHg (80.0-100.0); Potassium Level - ABG 2.6 mmol/L (3.5-5.0)
[2021-03-24 10:37] LABS: Alveolar-Arterial Oxygen Gradi 14.5 mmHg (5-10); HGB O2 Sat 68.7 % (95-100); Total Hemoglobin 11.7 g/dL (12-16)
--- NOTE | 2021-03-24 10:45 | PC.SOCIAL ---
*IMM UPDATE* Gave patient's verbal IMM update. Left copy of pg 2 at bedside. He verbalized understanding. 03/24/21 @ 0921 Initialed, dated, timed and placed in chart.
--- NOTE | 2021-03-24 10:50 | PC.NURSE ---
Pt pinching per fingers in the air, stating she was going to get that bug. No insects present.
[2021-03-24 11:20] LABS: Ammonia 35 umol/L (11-51)
[2021-03-24 12:19] LABS: Cortisol Random 20.91 ug/dL (2.47-19.5)
[2021-03-24] MEDS: LORazepam 0.5 mg Tablet PO (15:08)
[2021-03-24] MEDS: warfarin 4 mg Tablet PO (15:08)
--- NOTE | 2021-03-24 16:59 | PC.NURSE ---
Report faxed to [facility].
--- NOTE | 2021-03-24 17:39 | PC.RESP ---
SMOKING CESSATION AND PULMONARY REHAB INFORMATION SENT TO PATIENT.
--- NOTE | 2021-03-24 17:52 | PC.NURSE ---
Report called to [facility]. Report given to TRENT Valdez. Dietary notified of comfort cart for family.
--- NOTE | 2021-03-24 18:25 | PC.NURSE ---
Addendum entered by Allison Lowery RN 03/24/21 18:29: Correction: LUCAS Quiroz Original Note: All care and charting performed by [facility] nurse residency, supervised by this nurse.
--- NOTE | 2021-03-24 18:26 | PC.NURSE ---
Pt transferred to room 262, Swapped beds out, so pt could remain comfortable. Belongings with pt.
[2021-03-24] MEDS: LORazepam 2 mg/mL INJ 1 mL IVP (22:17)
[2021-03-25] VITALS (9 sets, daily range): BP systolic 108–134; BP diastolic 62–90; PULSE 127–158; RESP 12–23; TEMP 35.8–37.6; O2SAT 75–95
[2021-03-25] MEDS: morphine 4 mg/mL SDV 1 mL 2 MG IVP ×3 (00:05→14:26)
[2021-03-25] MEDS: HYDROmorphone 1 mg/mL INJ 1 mL 0.5 MG IVP ×2 (01:19→19:52)
--- NOTE | 2021-03-25 09:49 | PC.SLP ---
Physician requests no swallow eval at this time due to comfort measures.
[2021-03-25] MEDS: famotidine 20 mg/2 mL INJ IVP ×2 (10:11→21:17)
[2021-03-25] MEDS: LORazepam 2 mg/mL INJ 1 mL IVP (12:54)
--- NOTE | 2021-03-25 15:32 | P.PN_ITS ---
Subjective Subjective: Interval history: No complaints overnight. Patient has remained comfortable. On examination has family at bedside. Looks in mild pain while getting morphine. Vitals/I&O/Wt Last Vital Signs Temp 96.5 F L 03/25/21 07:00 Pulse 153 H 03/25/21 11:00 Resp 15 03/25/21 14:26 BP 123/82 03/25/21 07:00 Pulse Ox 95 03/25/21 14:26 03/25/21 03/25/21 03/25/21 06:59 14:59 22:59 Intake Total 20 / 1016.459 Balance 20 / -283.541 Physical Exam Narrative: EXAM NARRATIVE: Not examined given goals of care of comfort measur es are as patient is sleeping though looks mildly distressed because of abdominal pain on nasal cannula 1 L Urinary Catheter Management^: Parrish: Cath Placed During This Visit: yes Reason for Continuing Indwelling Catheter: Accurate Measurement of Urinary Output in Critically Ill Patients Urinary Catheter Date of Insertion: 03/22/21 Urinary Catheter Time of Insertion: 11:45 Data : 03/24/21 05:47 03/24/21 05:47 Micro: Microbiology 03/23/21 19:30 Urine Culture - Preliminary Urine Catheterized A&P Assessment and plan (1) Sepsis: WBC is trending down: Currently patient has remained afebrile, has maintained a fairly decent MAP. Has continued to saturate well on minimal supplemental oxygen requirement. Blood culture: NTD Lactic acid:3.1 Procalcitonin: 3.10 Urinalysis: urine culture Vancomycin Zosyn Status: Acute (2) Atrial fibrillation with RVR: New Onset A.Fib: Recent 2D Echo: Normal left ventricular cavity size and systolic function. Mildly increased left ventricular wall thickness. Mild concentric left ventricular hypertrophy. Left ventricular ejection fraction is estimated at 55 %. 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 Currently On Cardizem Drip. Have received 750 mcg of loading dose of digoxin, she has been started on 125 mcg p.o. daily maintenance dose of digoxin. Cardizem 60 mg p.o. every 6H daily Metoprolol 5 mg IV every 4 hours daily PRN On therapeutic Lovenox Monitor Serum Digoxin Level. Status: Acute (3) Acute encephalopathy: Ac Metabolic Encephalopathy Status: Acute (4) Ascites: S/P 5 L s Serous ascitic fluid removed. Recurrent ascites in the setting of end-stage liver disease. Lasix 40 mg po BID Continue albumin. Status: Acute (5) Anasarca: Status: Acute (6) Hyponatremia: Hypervolemic hyponatremia. Improving Monitor BMP Status: Acute (7) Transaminitis: Secondary to end-stage liver disease:Slight Improvement Status: Acute (8) Subtherapeutic international normalized ratio (INR): S/P Vitamin K as well as 1 Bag FFP. Status: Acute (9) H/O mitral valve replacement: On Coumadin at home. Currently on therapeutic Lovenox for now. warfarin 4 mg po daily Monitor INR Status: Acute (10) Pancreatic malignant neoplasm: Status: Acute (11) Anemia: Status: Acute (12) Metastasis to liver of unknown origin: Status: Acute (13) COPD (chronic obstructive pulmonary disease): Status: Acute (14) Hypokalemia: Status: Acute Additional A&P Information Patient is comfort measures only. Case management working on safe and comfortable placement. Family today requested possible placement to SNF with comfort measures. Ativan, Dilaudid 0.5 as needed for pain and air hunger. Scopolamine. Stop further blood work. Stop Zosyn, Cardizem drip. Continue other oral therapies at home when patient is able. Attestations Medical Necessity Statement*: Patient requires further hospitalization for management of comfort measures only while safe and comfortable discharge planning is sought. Time Spent in Patient Care: Greater than 35 minutes (>than 50% of time spent in counselling and/or direct pt care on unit) . Coding Level of Care Code Acute Ripening Room Attendant for [facility] Fwd Diagnoses Sepsis A41.9 Atrial fibrillation with RVR I48.91 Acute encephalopathy G93.40 Ascites R18.8 Anasarca R60.1 Hyponatremia E87.1 Transaminitis R74.01 Subtherapeutic international normalized ratio (INR) R79.1 H/O mitral valve replacement Z95.2 Pancreatic malignant neoplasm C25.9 Anemia D64.9 Metastasis to liver of unknown origin C78.7; C80.1 COPD (chronic obstructive pulmonary disease) J44.9 Hypokalemia E87.6
[2021-03-25 17:30] LABS: SARS Covid-2 Antigen Negative (Negative)
[2021-03-26 03:00] VITALS: BP 91/47; PULSE 101; RESP 16; TEMP 36.3; O2SAT 90
[2021-03-26 08:04] VITALS: BP 105/67; PULSE 108; RESP 4; TEMP 36.9; O2SAT 90
[2021-03-26] MEDS: HYDROmorphone 1 mg/mL INJ 1 mL 0.5 MG IVP ×2 (09:16→12:04)
[2021-03-26] MEDS: LORazepam 2 mg/mL INJ 1 mL IVP (09:17)
[2021-03-26 09:36] VITALS: RESP 8
--- NOTE | 2021-03-26 09:48 | PC.SOCIAL ---
IMM Pg 2. IMM not updated with patient as patient is on comfort care and not responsive. A copy left at bedside if family wants to review.
--- NOTE | 2021-03-26 11:38 | PM.DCS ---
Discharge Providers Date of Admission: 03/21/21 12:37 Date of Discharge: March 26, 2021 Attending Provider at Admission: Horacio Acosta MD Attending Provider at Discharge: Bora Parra MD Diagnoses at Discharge Discharge Diagnosis (1) Sepsis: Status: Acute (2) Atrial fibrillation with RVR: Status: Acute (3) Acute encephalopathy: Status: Acute (4) Ascites: Status: Acute (5) Anasarca: Status: Acute (6) Hyponatremia: Status: Acute (7) Transaminitis: Status: Acute (8) Subtherapeutic international normalized ratio (INR): Status: Acute (9) H/O mitral valve replacement: Status: Acute Permanent problem details: Takes Coumadin (10) Pancreatic malignant neoplasm: Status: Acute (11) Anemia: Status: Acute (12) Metastasis to liver of unknown origin: Status: Acute (13) COPD (chronic obstructive pulmonary disease): Status: Acute (14) Hypokalemia: Status: Acute (15) Comfort measures only status: Status: Acute Reason for Visit Reason for Visit: ABDOMINAL PAIN AND DISTENTION Hospital Course Hospital Course 70 year old female with past medical history of mitral valve replacement on Coumadin, 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 Patient went to the hospital for management of sepsis with unknown source. He was started on broad-spectrum antibiotics. Fluid status were tenuous as patient had generalized anasarca was intravascular depleted. He is also found to be in atrial fibrillation with rapid ventricular response for which multiple medications were tried and she remains on Cardizem drip. On admission patient was also found to have supratherapeutic INR which was reversed and then she was started on Lovenox while being transitioned to warfarin. Because of multiple admission, severe comorbidities and poor functional capacity both physically and medically further discussions regarding goals of care discussion with patient's daughter and Mr. Nichole at bedside were done. 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 We discussed that patient has reaccumulated ascites fluid less than 2 weeks and would most likely require further paracentesis or even a pigtail placement. We also discussed unfortunately given the baseline medical comorbidities including history of mitral valve replacement, difficulty to obtain therapeutic INR, advanced carcinoma patient is at high risk of adverse events including cardiorespiratory arrest as well. We also discussed that unfortunately at this time patient would need further paracentesis versus pigtail placement and palliative chemotherapy which would mean that patient would probably reaccumulate fluid but at a lower speed. Patient's family had a question that would this mean that patient would be comfortable and not in pain anymore to which they were explained that palliative therapy would mean to make sure that the cancer does not aggressively spread further but along with that she would be treated for other problems as well. Given all the discussion above patient family decided that at this point they would want patient to be comfortable, pain-free and would not want any aggressive treatment at present. They want patient to be hospice goals of care. CODE STATUS was changed to comfort measures only. Patient is being discharged with comfort care measures only to SNF for safe and comfortable discharge planning. Physical Exam Narrative: EXAM NARRATIVE: Not examined given goals of care of comfort measures are as patient is sleeping though looks mildly distressed because of abdominal pain on nasal cannula 1 L Urinary Catheter Management^: Parrish: Cath Placed During This Visit: yes Reason for Continuing Indwelling Catheter: Hospice/Comfort/Palliative Care Urinary Catheter Date of Insertion: 03/22/21 Urinary Catheter Time of Insertion: 11:45 Discharge Data Data Completed and Pending: Completed Studies During Hospitalization Category Date Time Status CT abdomen pelvis wo con [id number] Rout ine Cat Scan 03/24/21 09:19 Completed XR chest 1V gloria ble [id number] Routine Exams 03/24/21 06:00 Completed XR chest 1V gloria ble [id number] Stat Exams 03/21/21 11:16 Completed [place] abdomen limite d [id number] Stat Ultrasound 03/21/21 11:15 Completed Pending at discharge Category Date Time Status Blood Culture Sta t Lab 03/21/21 14:55 Results Urine Culture Rou arik Lab 03/23/21 19:30 Results Labs from last 24 hours 03/25/21 16:45 SARS-CoV-2 Ag (Rap id) Negative Addt'l Data from Hospital Stay: Laboratory Results WBC 13.3 10^3/uL (4.0 -10.0) H 03/24/21 05:47 Corrected WBC Cancelled 03/23/21 05:06 RBC 3.35 10^6/uL (4.1 -5.3) L 03/24/21 05:47 Hgb 10.1 g/dL (11.5-1 5.3) L 03/24/21 05:47 Hct 31.5 % (37.0-47.0 ) L 03/24/21 05:47 MCV 94.0 fL (81-99) 03/24/21 05:47 MCH 30.1 pg (28.0-34. 0) 03/24/21 05:47 MCHC 32.1 g/dL (30.0-3 6.0) 03/24/21 05:47 RDW 19.5 % (12.1-15.1 ) H 03/24/21 05:47 Plt Count 73 10^3/cmm (130- 400) L 03/24/21 05:47 MPV 10.6 fL (7.4-10.4 ) H 03/24/21 05:47 Gran % Cancelled 03/23/21 05:06 Neut % (Auto) 82.9 % 03/24/21 05:47 Lymph % (Auto) 7.8 % 03/24/21 05:47 [place] % (Auto) 8.4 % 03/24/21 05:47 Eos % (Auto) 0.1 % 03/24/21 05:47 Baso % (Auto) 0.3 % 03/24/21 05:47 Neut # (Auto) 11.01 10^3/uL (1. 8-7.7) H 03/24/21 05:47 Lymph # (Auto) 1.0 10^3/uL (0.8- 4.8) 03/24/21 05:47 [place] # (Auto) 1.1 10^3/uL (0.2- 0.9) H 03/24/21 05:47 Eos # (Auto) 0.0 10^3/uL (0.0- 0.8) 03/24/21 05:47 Baso # (Auto) 0.0 10^3/uL (0.0- 0.1) 03/24/21 05:47 Absolute Gran (aut o) Cancelled 03/23/21 05:06 Nucleated RBC % (a uto) 0 % 03/24/21 05:47 Nucleated RBCs # 0.0 /100WBC 03/24/21 05:47 PT 20.80 SECONDS (12 .1-14.9) H 03/24/21 05:47 INR 1.75 (0.8-1.2) H 03/24/21 05:47 APTT 51.7 SECONDS (23. 9-36.7) H 03/21/21 11:27 Specimen Type Arterial 03/24/21 10:12 Sample Site Radial, right 03/24/21 10:12 ABG pH (7.35-7.45) 03/24/21 10:12 ABG pCO2 41.5 mmHg (35-45) 03/24/21 10:12 ABG pO2 37.9 mmHg (80.0-1 00.0) L* 03/24/21 10:12 ABG HCO3 27.6 mmol/L (22-2 6) H 03/24/21 10:12 ABG O2 Saturation 70.8 03/24/21 10:12 ABG Base Excess 3.0 mmol/L (-2.0- 2.0) H 03/24/21 10:12 Phil Test Pos 03/24/21 10:12 A-a O2 Gradient 14.5 mmHg (5-10) H 03/24/21 10:12 Hematocrit 35.9 % (37-47) L 03/24/21 10:12 Hgb O2 Saturation 68.7 % (95-100) L 03/24/21 10:12 Carboxyhemoglobin 2.0 %THgb (0.4-20 .1) 03/24/21 10:12 Methemoglobin 0.9 % (0.4-1.5) 03/24/21 10:12 Total Hemoglobin 11.7 g/dL (12-16) L 03/24/21 10:12 Sodium 137.0 mmol/L (131 -143) 03/24/21 10:12 Potassium 2.6 mmol/L (3.5-5 .0) L 03/24/21 10:12 Glucose 105.0 mg/dL (70-1 15) 03/24/21 10:12 Ionized Calcium 1.1 mmol/L (1.1-1 .4) 03/24/21 10:12 O2 Delivery Device Nc 03/24/21 10:12 O2 Liters/Min 2.0 % 03/24/21 10:12 FiO2 28.0 % 03/24/21 10:12 Reimbursement Spec ID Cak 03/24/21 10:12 Sodium 137 mmol/L (136-1 45) 03/24/21 05:47 Potassium 2.3 mmol/L (3.5-5 .1) L* D 03/24/21 05:47 Chloride 98 mmol/L (98-107 ) 03/24/21 05:47 Carbon Dioxide 24 mmol/L (22-29) 03/24/21 05:47 Anion Gap 17.3 (5-19) 03/24/21 05:47 BUN 13 mg/dL (8-23) 03/24/21 05:47 Creatinine 0.4 mg/dL (0.5-0. 9) L 03/24/21 05:47 GFR Calculation 158.3 mL/min (90- 130) H 03/24/21 05:47 Glucose 145 mg/dL (65-115 ) H 03/24/21 05:47 POC Glucose 57 mg/dL (70-110) L 03/22/21 19:40 Calculated Osmolal ity 287 mOsm/kg (285- 295) 03/24/21 05:47 Lactate 4.5 mmol/L (0.5-2 .2) H* 03/24/21 05:47 Calcium 7.6 mg/dL (8.5-10 .5) L 03/24/21 05:47 Magnesium 1.5 mg/dL (1.7-2. 3) L 03/24/21 05:47 Total Bilirubin 6.0 mg/dL (0.15-1 .2) H 03/24/21 05:47 AST 83 U/L (0-32) H 03/24/21 05:47 ALT 35 U/L (0-33) H 03/24/21 05:47 Alkaline Phosphata se 343 IU/L (35-105) H 03/24/21 05:47 Ammonia 35 umol/L (11-51) 03/24/21 10:46 Total Protein 4.8 g/dL (6.6-8.7 ) L 03/24/21 05:47 Albumin 3.6 g/dL (3.5-5.2 ) 03/24/21 05:47 Globulin 1.2 g/dL (1.3-4.6 ) L 03/24/21 05:47 Procalcitonin 1.62 ng/mL (0-0.5 ) H 03/24/21 05:47 Random Cortisol 20.91 ug/dL (2.47 -19.5) H 03/24/21 05:47 Urine Color Yellow (Yellow) 03/23/21 19:30 Urine Appearance Clear (CLEAR) 03/23/21 19:30 Urine pH 5 (5-7) 03/23/21 19:30 Ur Specific Gravit y 1.015 (1.005-1.0 30) 03/23/21 19:30 Urine Protein Neg (Negative) 03/23/21 19:30 Urine Glucose (UA) Norm (Normal) 03/23/21 19:30 Urine Ketones Negative (Negati ve) 03/23/21 19:30 Urine Blood Neg (Negative) 03/23/21 19:30 Urine Nitrate Negative (Negati ve) 03/23/21 19:30 Urine Bilirubin Neg (Negative) 03/23/21 19:30 Urine Urobilinogen Norm mg/dL (Negat ryanne) 03/23/21 19:30 Ur Leukocyte Octavia ase Negative (Negati ve) 03/23/21 19:30 Vancomycin Trough 18.8 ug/mL (10-15 ) H 03/23/21 05:06 Digoxin 0.8 ng/mL (0.6-1. 2) 03/24/21 05:47 SARS-CoV-2 Ag (Rap id) Negative (Negati ve) 03/25/21 16:45 Blood Type O Positive 03/21/21 16:03 Rho(D) Type Positive / 4+ 03/21/21 16:03 Antibody Screen Negative 03/21/21 16:03 Impressions Abdomen Ultrasound 03/21/21 11:15 IMPRESSION: Large amount of ascites. Paracentesis will not be performed due to significantly elevated INR value. Chest X-Ray 03/24/21 06:00 IMPRESSION: 1. Linear opacities seen in the lower hemithoraces bilaterally likely represents atelectasis versus parenchymal scarring. 2. Otherwise stable appearance of the chest compared with 03/21/2021. 3. The previously noted left upper lobe pulmonary nodularity is likely behind the aortic knob in this patient is rotated slightly to the left. Abdomen/Pelvis CT 03/24/21 09:19 IMPRESSION: 1. No evidence of high-grade small or large bowel obstruction. Normal noncontrast sigmoid colon. 2. Diffuse body wall anasarca with moderate abdominal and pelvic ascites similar to previous. 3. Hepatomegaly and splenomegaly with diffuse hepatic metastasis unchanged. 4. Tiny left pleural effusion. 5. Small esophageal hiatal hernia. 6. No other significant changes from previous. Vitals: Last Vital Signs Temp 98.4 F 03/26/21 08:04 Pulse 108 H 03/26/21 08:04 Resp 8 L 03/26/21 09:36 BP 105/67 03/26/21 08:04 Pulse Ox 98 03/26/21 08:04 Discharge Plan Discharge Patient Disposition: Hospice - Medical Facility Condition: Stable Prescriptions: Continued ferrous sulfate 325 mg (65 mg iron) tablet 325 mg PO EVERY OTHER DAY RF: 0 mirtazapine 15 mg tablet 15 mg PO BEDTIME RF: 0 nitroglycerin [Nitrostat] 0.4 mg tablet, sublingual 0.4 mg sublingual Q5M PRN (Reason: Chest Pain) RF: 0 oxybutynin chloride 10 mg tablet extended release 24hr 10 mg PO DAILY RF: 0 verapamil 360 mg capsule,ext rel. pellets 24 hr 360 mg PO DAILY RF: 0 alendronate [Fosamax] 70 mg tablet 70 mg PO Q7D RF: 0 venlafaxine 150 mg capsule,extended release 24hr 300 mg PO DAILY RF: 0 ropinirole 0.5 mg tablet 0.5 mg PO DAILY RF: 0 albuterol sulfate [Ventolin HFA] 90 mcg/actuation HFA aerosol inhaler 2 puff inhalation Q4H PRN (Reason: Shortness Of Breath) RF: 0 budesonide-formoterol [Symbicort] 160-4.5 mcg/actuation HFA aerosol inhaler 2 puff INHALATION BID RF: 0 spironolactone 25 mg Tablet 25 mg PO DAILY 30 Days Qty: 30 RF: 0 furosemide 40 mg tablet 40 mg PO BID Qty: 0 RF: 0 prochlorperazine maleate 10 mg tablet 10 mg PO Q4H PRN (Reason: Nausea And Vomiting) RF: 0 lidocaine-prilocaine 2.5-2.5 % Cream 1 applic topical . DIRECTED RF: 0 dexamethasone 4 mg tablet See Rx Instructions .ROUTE .COMPLEX RF: 0 promethazine 25 mg tablet 25 mg PO BID PRN (Reason: Nausea And Vomiting) RF: 0 Colace 100 mg Capsule 100 mg PO DAILY RF: 0 oxycodone 5 mg tablet 5 mg PO Q6H RF: 0 warfarin 4 mg tablet 4 mg PO DAILY RF: 0 gabapentin 100 mg capsule 100 mg PO TID RF: 0 lorazepam 1 mg tablet 0.5 mg PO TID RF: 0 oxycodone-acetaminophen 5-325 mg tablet 1 tab PO QID PRN (Reason: Pain) RF: 0 potassium chloride 10 mEq tablet,ER particles/crystals 10 meq PO DAILY RF: 0 pantoprazole 40 mg tablet,delayed release (DR/EC) 40 mg PO DAILY RF: 0 Discharge Orders: Discharge Order (Routine); Ordered 03/26/21 Ordered By: Bora Parra Discharge Diet: Advance as tolerated Discharge Activity: Limit activity as instructed Patient Instructions: Opioid Safety Activity Restrictions/Additional Instructions: Comfort measures only. Discharge Attestations Time Spent in Discharge Care*: greater than 30 min Specific Discharge Activities: educating and/or supporting family/caregiver, discussing with rn field case manager/social workers/dc planners, documenting/other paperwork and evaluating patient/reviewing data Status at Discharge: Cognitive status at discharge: severely impaired cognition, Behavioral status at discharge: cooperative, Functional status at discharge: bed bound Overall status at discharge: patient has a new baseline Quality Metrics Clinical Quality Measures During this hospital stay, did patient experience: None Coding Level of Care Code Acute g DC note Diagnoses Sepsis A41.9 Atrial fibrillation with RVR I48.91 Acute encephalopathy G93.40 Ascites R18.8 Anasarca R60.1 Hyponatremia E87.1 Transaminitis R74.01 Subtherapeutic international normalized ratio (INR) R79.1 H/O mitral valve replacement Z95.2 Pancreatic malignant neoplasm C25.9 Anemia D64.9 Metastasis to liver of unknown origin C78.7; C80.1 COPD (chronic obstructive pulmonary disease) J44.9 Hypokalemia E87.6 Comfort measures only status Z51.5
[2021-03-26 13:00] VITALS: BP 128/78; PULSE 79; RESP 4; TEMP 36.7; O2SAT 92
[2021-03-26] MEDS: HYDROmorphone 1 mg/mL INJ 1 mL IVP ×2 (13:44→14:49)
--- NOTE | 2021-03-26 15:20 | PC.NURSE ---
Patient Called to room by family, unable to auscultate apical pulse. No respirations noted. extrusion supervisor and Dr. Parra notified.
--- NOTE | 2021-03-26 17:15 | PC.NURSE ---
patients daughter at bedside when patient signed body transfer record. Her name and number is Danae Sneed [phone]
--- NOTE | 2021-03-26 23:06 | PC.NURSE ---
2119- [facility] here for harvest.
== END 2021-03-26 19:00 | disposition expired | DRG 871 ==
LOC: ER 11:53 → MEDSURG 14:51 → ICU 03-22 12:31 → MEDSURG 03-24 18:54
PROVIDERS: Hospitalist; Admitting Provider Internal Medicine; Emergency Provider Family Medicine; Visit Provider Student in an Organized Health Care Education/Training Program
DX: A41.9 Sepsis, unspecified organism (principal); G93.41 Metabolic encephalopathy; C25.9 Malignant neoplasm of pancreas, unspecified; C78.7 Secondary malignant neoplasm of liver and intrahepatic bile duct; C77.1 Secondary and unspecified malignant neoplasm of intrathoracic lymph nodes; R18.8 Other ascites; E87.1 Hypo-osmolality and hyponatremia; D68.8 Other specified coagulation defects; Z95.2 Presence of prosthetic heart valve; Z79.01 Long term (current) use of anticoagulants; J44.9 Chronic obstructive pulmonary disease, unspecified; K21.9 Gastro-esophageal reflux disease without esophagitis; M81.0 Age-related osteoporosis without current pathological fracture; Z86.711 Personal history of pulmonary embolism; F17.210 Nicotine dependence, cigarettes, uncomplicated; T45.515A Adverse effect of anticoagulants, initial encounter; I48.91 Unspecified atrial fibrillation; R97.1 Elevated cancer antigen 125 [CA 125]; D64.9 Anemia, unspecified; Z66 Do not resuscitate; Z51.5 Encounter for palliative care
CPT/HCPCS: 36415; 36416; 36430; 36591; 36600; 49083; 51702; 71045; 74176; 76705; 80048; 80051; 80053; 80162; 80202; 81003; 82140; 82330; 82533; 82805; 82962; 83605; 83735; 84145; 85025; 85610; 85730; 86850; 86900; 86927; 87040; 87086; 87426; 87493; 93005; 94640; 96372; 99285; J1160; J1170; J1650; J1940; J2060; J2270; J2543; J3370; J3430; J3475; J3480; J3490; J7030; J7050; P9017; P9047